=== PATIENT | female | born 1960 | race Caucasian/White ===

== ENCOUNTER 2020-04-22 08:55 | Outpatient (REF) | payer OTHER, SELFPAY ==
[2020-04-22 11:36] LABS: Alanine Aminotransferase 14 U/L (0-31); Albumin Level 4.5 g/dL (3.5-5.0); Alkaline Phosphatase 78 U/L (39-117); Anion Gap 14 (12-20); Aspartate Amino Transferase 17 U/L (5-31); Bilirubin Total 0.9 mg/dL (0.0-1.0); Blood Urea Nitrogen 21 mg/dL (9-16); Calcium 9.4 mg/dL (8.4-10.2); Carbon Dioxide 26 mmol/L (22-29); Chloride 104 mmol/L (96-108); Cholesterol 197 mg/dL; Estimated Glomerular Filt Rate > 60; Glucose Fasting 87 mg/dL (60-99); HDL Cholesterol 73 mg/dL; LDL Cholesterol Calculated 112 mg/dl; Sodium 140 mmol/L (135-145); Total Protein 6.5 g/dL (6.5-8.0); Triglycerides 64 mg/dL
== END 2020-04-22 08:56 | disposition home or self-care (01) ==
LOC: HO.HMGCX 08:55
PROVIDERS: PCP Internal Medicine; Visit Provider Internal Medicine
DX: I10 Essential (primary) hypertension (principal); E78.5 Hyperlipidemia, unspecified
CPT/HCPCS: 80053; 80061

== ENCOUNTER 2021-08-16 11:48 | Outpatient (REF) | payer OTHER, SELFPAY ==
[2021-08-19 07:11] LABS: HPV mRNA E6/E7 Not Detected (Not Detected)
== END 2021-08-16 11:49 | disposition home or self-care (01) ==
LOC: HO.LAB 11:48
PROVIDERS: Visit Provider Internal Medicine
DX: Z01.419 Encounter for gynecological examination (general) (routine) without abnormal findings (principal); Z11.51 Encounter for screening for human papillomavirus (HPV)
CPT/HCPCS: 87624; 88142

== ENCOUNTER 2021-11-02 11:42 | Outpatient (REF) | payer OTHER, SELFPAY ==
[2021-11-02 11:58] LABS: Appearance Urine CLOUDY; Color Urine YELLOW; Glucose Urine UA NEG (NEG); Leukocyte Esterase Urine 1+ (NEG); Nitrite Urine NEG (NEG); PH 5.5 (5.0-8.0); Specific Gravity - Urine 1.025 (1.005-1.025); UACC Culture Trigger YES; Urine Blood NEG (NEG); Urine Ketones NEG (NEG); Urine Protein NEG (NEG-TRACE)
[2021-11-02 12:07] LABS: Amorphous Sediment Urine 3+ /LPF; Bacteria Urine 1+ /LPF; Calcium Oxalate Crystals Urine 3+ /LPF; RBC Urine 0 /HPF (0); Squamous Epithelial Cell Urine TRACE /LPF
== END 2021-11-02 11:43 | disposition home or self-care (01) ==
LOC: HO.LNP 11:42
PROVIDERS: Visit Provider Physician Assistant
DX: N39.0 Urinary tract infection, site not specified (principal)
CPT/HCPCS: 81001; 87086

== ENCOUNTER 2022-02-13 08:17 | Outpatient (REF) | payer OTHER, SELFPAY ==
[2022-02-13 11:25] LABS: Appearance Urine Clear; Color Urine Yellow; Glucose Urine UA Negative (Negative); Leukocyte Esterase Urine Negative (Negative); Nitrite Urine Negative (Negative); Specific Gravity - Urine 1.015 (1.005-1.025); UMIC TRIGGER UA YES; UMIC TRIGGER UACC YES; Urine Blood Trace (Negative); Urine Ketones Negative (Negative); Urine Protein Negative (Neg-Trace)
[2022-02-13 11:29] LABS: Bacteria Urine Trace (None Seen); Hyaline Casts Urine 0-2 /LPF (0-2); Squamous Epithelial Cell Urine 0-2 /HPF (0-2); WBC Urine 0-5 /HPF (0-5)
[2022-02-13 11:43] LABS: Hematocrit 41.9 % (37.0-47.0); Hemoglobin 14.3 g/dl (12.0-16.0); Mean Corpuscular HGB Conc 34.1 g/dl (31.0-35.0); Mean Corpuscular Hemoglobin 30.1 pg (27.0-33.0); Mean Corpuscular Volume 88.2 fL (80.0-98.0); Mean Platelet Volume 9.7 fL (9.4-12.3); Platelet Count 279 X10*3/uL (160-400); Red Blood Count 4.75 X10*6/uL (4.20-5.50); Red Cell Distribution Width 12.9 % (11.0-16.0); White Blood Count 8.5 X10*3/uL (4.8-10.8)
[2022-02-13 12:23] LABS: Alanine Aminotransferase 22 U/L (0-31); Albumin Level 4.4 g/dL (3.5-5.0); Alkaline Phosphatase 90 U/L (39-117); Anion Gap 15 (12-20); Aspartate Amino Transferase 21 U/L (5-31); Bilirubin Total 0.5 mg/dL (0.0-1.0); Blood Urea Nitrogen 13 mg/dL (9-16); Calcium 9.3 mg/dL (8.4-10.2); Carbon Dioxide 27 mmol/L (22-29); Chloride 105 mmol/L (96-108); Cholesterol 215 mg/dL; Estimated Glomerular Filt Rate > 60; Glucose Fasting 91 mg/dL (60-99); HDL Cholesterol 80 mg/dL; LDL Cholesterol Calculated 124 mg/dl; Potassium 3.7 mmol/L (3.3-5.1); Sodium 143 mmol/L (135-145); Total Protein 6.4 g/dL (6.5-8.0); Triglycerides 58 mg/dL
[2022-02-13 12:29] LABS: TSH reflex Free T4 0.99 uIU/mL (0.32-4.0)
== END 2022-02-13 08:18 | disposition home or self-care (01) ==
LOC: HO.HMGCLDS 08:17
PROVIDERS: Physician Assistant; PCP Internal Medicine; Visit Provider Internal Medicine
DX: Z00.00 Encounter for general adult medical examination without abnormal findings (principal); I10 Essential (primary) hypertension; E78.5 Hyperlipidemia, unspecified; N39.0 Urinary tract infection, site not specified
CPT/HCPCS: 36415; 80053; 80061; 81001; 84443; 85027

== ENCOUNTER 2022-08-30 10:19 | Outpatient (REF) | payer OTHER, SELFPAY ==
--- NOTE | ~2022-08-30 | XR_ITS ---
EXAMINATION: XR CHEST CLINICAL INFORMATION: Persistent cough x1 month COMPARISON: None available. TECHNIQUE: 2 views of the chest were obtained. FINDINGS: No focal consolidation. No pneumothorax. Trachea is midline. Cardiac mediastinal silhouette is not enlarged. No large pleural effusion. Osseous structures are intact. Soft tissues are unremarkable. Surgical clips in the upper chest. XR/XR chest 2V IMPRESSION: No acute cardiopulmonary process.
[2022-08-30 12:19] LABS: Alanine Aminotransferase 21 U/L (0-31); Albumin Level 4.5 g/dL (3.5-5.0); Alkaline Phosphatase 92 U/L (39-117); Anion Gap 13 (12-20); Aspartate Amino Transferase 20 U/L (5-31); Bilirubin Total 0.7 mg/dL (0.0-1.0); Blood Urea Nitrogen 16 mg/dL (9-16); Calcium 9.4 mg/dL (8.4-10.2); Carbon Dioxide 27 mmol/L (22-29); Chloride 107 mmol/L (96-108); Cholesterol 220 mg/dL; Estimated Glomerular Filt Rate > 60; Glucose Fasting 84 mg/dL (60-99); HDL Cholesterol 68 mg/dL; LDL Cholesterol Calculated 124 mg/dl; Sodium 143 mmol/L (135-145); Total Protein 6.5 g/dL (6.5-8.0); Triglycerides 143 mg/dL
== END 2022-08-30 10:20 | disposition home or self-care (01) ==
LOC: HO.HMGCX 10:19
PROVIDERS: Absent Provider Internal Medicine; PCP Internal Medicine; Visit Provider Nurse Practitioner Family
DX: E78.5 Hyperlipidemia, unspecified (principal); I10 Essential (primary) hypertension; R05.9 Cough, unspecified
CPT/HCPCS: 36415; 71046; 80053; 80061

== ENCOUNTER 2023-01-12 15:22 | Outpatient (AMB) | payer OTHER, SELFPAY ==
[2023-01-12 16:13] VITALS: BP 128/62; PULSE 98; TEMP 36.6; O2SAT 97; BMI 31.8
--- NOTE | 2023-01-12 16:13 | MHC.OFFWIV ---
Intake Vital Signs 01/12/23 16:13 Height 5 ft 4 in Weight 185 lb 8 oz BMI 31.8 BP 128/62 Blood Pressure Location Rt brachial Position Sitting Pulse 98 Pulse Source Pulse Oximeter Temp 97.9 F Temp Source Oral Pulse Oximetry (%) 97 Oxygen Delivery Method Room Air Intake Visit Reasons: EST/sore spot on hand Intake Note: Pt is here today for lump on Rt hand, noticed 2 months ago. Also concerns of Rt neck pain. Patient Tobacco Use Status: Never used Tobacco Allergies fexofenadine [From Romi] Allergy (Unknown, Verified 01/12/23 16:14) dizziness Milk Containing Products (Dairy) [Milk Containing Products] Allergy (Unknown, Verified 01/12/23 16:14) hives/ itchiness lisinopril Adverse Reaction (Verified 01/12/23 16:14) cough HPI HPI Comments History of Present Illness Details This is a 62-year-old female who presents to the office today for sick visit. Patient complaining of a tender ?lump? on her right hand that has been present for months as well as chronic right neck pain. Patient states she started to notice a lump on her right hand about 3 months ago. She does not believe that it is getting bigger it has gotten more painful. She also reports chronic right-sided neck pain. She follows with her PCP as well as arthritis doctor for this pain. She denies any numbness/weakness/paresthesias of her extremities. [facility] Medical History (Updated 08/30/22 @ 10:15 by Saba Richardson, [facility]) Annual physical exam Mastalgia in female Mammogram normal Hyperlipidemia Allergic rhinitis Pemphigus vulgaris Osteoarthritis HTN (hypertension) Surgical History (Updated 02/15/22 @ 13:27 by Kavya Red MD) H/O colonoscopy S/P RAFY (total abdominal hysterectomy) Hx of cholecystectomy H/O left knee surgery H/O right wrist surgery History of bladder surgery Family History Father Lung cancer Mother Bladder cancer Social History Housing: House Alcohol intake: current Alcohol intake frequency: a few times a month Patient Tobacco Use Status: Never used Tobacco e-Cigarette/Vaping Use: Never Used Second Hand Smoke Exposure: No Current occupational status: employed Cognitive needs: No Hearing needs: No Vision needs: Yes Review of Systems Const All systems reviewed & are unremarkable except as noted in HPI and below Reports no additional complaints Eyes Reports no additional complaints ENT Reports no additional complaints Card Reports no additional complaints Resp Reports no additional complaints GI Reports no additional complaints Reports no additional complaints Musc Reports no additional complaints Skin/Breast Reports system reviewed and no additional complaints, except as documented Neuro Reports no additional complaints Psych Reports no additional complaints Endo Reports no additional complaints Aaron/Lymph Reports no additional complaints Aller/Immun Reports no additional complaints Physical Exam Vital Signs: Last Vital Signs Temp 97.9 F 01/12/23 16:13 Pulse 98 01/12/23 16:13 BP 128/62 01/12/23 16:13 Pulse Ox 97 01/12/23 16:13 Oxygen Delivery Method Room Air 01/12/23 16:13 BMI result Body Mass Index 31.8 Const General: cooperative, healthy appearing, no acute distress and well developed Orientation/consciousness: patient oriented x3 HEENT Head: Yes normal to inspection Ears: hearing grossly normal bilaterally General nose exam: Normal external nose present Face and sinus: Yes normal facial exam Mouth: Normal oral and palatal mucosa present Eyes General: appearance normal, both eyes and all related structures Pupils: Equal, round and reactive pupils present EOM: EOMs intact bilaterally Neck Other: Mild tenderness to palpation of the right-sided paraspinal musculature of the cervical spine with palpable muscle spasms. Neck: Yes normal visual inspection and Yes full ROM Resp Effort & Inspection: normal respiratory effort and no respiratory distress Auscultation: clear to auscultation bilaterally Cardio Rate: regular rate Rhythm: regular rhythm Heart sounds: no gallops, no murmurs and no rubs Peripheral pulses: Peripheral pulses 2+ throughout GI Inspection: No distended Palpation (GI): Soft to palpation and nontender Auscultation: normal bowel sounds Back/Spine/Pelvis Other: No midline spinous process tenderness to palpation of the cervical spine. Skin General skin exam: no rashes or lesions noted Neuro General: patient oriented x3 Cranial nerves: Yes CN's II-XII intact bilaterally and Yes Equal, round and reactive pupils present Gait exam (Neuro): Normal gait present Motor exam (neuro): 5/5 motor strength present throughout Extrem Other: Mildly tender firm nodule on the palmar aspect of the right hand with a fibrotic band consistent with Dupuytren's contracture. General: Yes normal to inspection, Yes full ROM and Yes no clubbing, cyanosis or edema Psych Appearance: grossly normal Mental Status: mental status grossly normal Assessment & Plan Assessment & Plan (1) Dupuytren contracture: Code(s): M72.0 - Palmar fascial fibromatosis [Dupuytren] Plan: This is a 62-year-old female who presents to the office complaining of a tender nodule on the right hand. On physical examination, there is a firm mildly tender nodule on the palmar aspect of the right hand with a fibrotic band which is consistent with Dupuytren's contracture. Patient has full range of motion in flexion and extension of all fingers at this time. Patient was reassured that this is a common in benign condition. Recommend rest/activity modification, ice to the area, and elevation of the extremity. Continue with acetaminophen/ibuprofen for pain management as long as patient has no medical contraindications. Orthopedic referral was given to the patient for possible intralesional glucocorticoid injection given this has become more bothersome. (2) Neck pain on right side: Code(s): M54.2 - Cervicalgia Plan: Patient also complaining of chronic right-sided neck pain for which she is followed by her primary care physician as well as an arthritis doctor. She denies any radicular symptoms. She states she tried her 's muscle relaxant, which seemed to help her pain at night. Patient was given a prescription for p.o. cyclobenzaprine 10 mg every night at bedtime as needed for muscle spasms as well as 5% lidocaine patches to the area daily. Patient was advised to attend her follow-up appointment with her arthritis doctor in 1 month. Orders: Referrals Orthopedics Referral M72.0 - Palmar fascial fibromatosis [Dupuytren] Medications: New cyclobenzaprine 10 mg PO BEDTIME PRN 30 tabs 0RF muscle spasm lidocaine 5% leave on most painful area for up to 12 hrs 1 patch topical DAILY 15 ea 0RF Coding Level of Care Code Est Pt Level 3 (71693) Diagnoses Dupuytren contracture M72.0 Neck pain on right side M54.2
== END 2023-01-12 16:39 | disposition home or self-care (01) ==
PROVIDERS: PCP Internal Medicine; Visit Provider Physician Assistant Medical
DX: M72.0 Palmar fascial fibromatosis [Dupuytren] (principal); M54.2 Cervicalgia
CPT/HCPCS: 99213

== ENCOUNTER 2023-02-21 13:52 | Outpatient (AMB) | payer OTHER, SELFPAY ==
[2023-02-21 14:06] VITALS: BMI 31.6
--- NOTE | 2023-02-21 14:06 | MHC.OFFVIS ---
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 States she feels a small lump on her volar aspect of hand at base of her right finger. 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 Also states she has numbness and tingling for the last 5 years. No EMG done. Hx of O.A in hands, last injection was about 2 years ago for her left index finger. 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 She complains of a painful bump in her left palm, at the base of her ring finger. She says this causes her pain with gripping and lifting activities for the last ~6 months. She also complains of ~5 years bilateral hand numbness in the median nerve distribution. Symptoms intermittent, but daily, worse at night. She says using her tablet in bed at night in particular causes her numbness She reports a hx of hand OA. She says she received a left index finger injection ~2 years ago. This is primarily involving her PIP joint. She denies any known injury. [facility] Medical History (Updated 02/21/23 @ 14:50 by Kevin Santillan) Annual physical exam Mastalgia in female Mammogram normal Hyperlipidemia Allergic rhinitis Pemphigus vulgaris Osteoarthritis HTN (hypertension) Surgical History (Updated 02/15/22 @ 13:27 by Kavya Red MD) H/O colonoscopy S/P RAFY (total abdominal hysterectomy) Hx of cholecystectomy H/O left knee surgery H/O right wrist surgery History of bladder surgery Family History Father Lung cancer Mother Bladder cancer Social History (Updated 02/21/23 @ 14:14 by Sonia Peters CCM) Housing: House Alcohol intake: current Alcohol intake frequency: a few times a month Patient Tobacco Use Status: Never used Tobacco e-Cigarette/Vaping Use: Never Used Second Hand Smoke Exposure: No Current occupational status: employed Current occupation: [employer] Cognitive needs: No Hearing needs: No Vision needs: Yes Review of Systems Const All systems reviewed & are unremarkable except as noted in HPI and below Physical Exam Vital Signs: BMI result Body Mass Index 31.6 Const General: cooperative, healthy appearing and no acute distress Orientation/consciousness: patient oriented x3 HEENT Head: Yes normocephalic and Yes atraumatic Eyes EOM: EOMs intact bilaterally Resp Effort & Inspection: normal respiratory effort and able to speak in complete sentences Cardio Jugular venous distension: no JVD Skin General skin exam: turgor normal Rashes: no rashes Neuro General: patient oriented x3 Extrem Other: Evaluation of Left Upper Extremity: The patient is alert, oriented, and in no acute distress Neuro: Median, Ulnar, Radial nerves motor and sensory intact and sensation is normal to the tips of all digits Vascular: Cap refill brisk ROM: She can make a weak fist and extend all her digits No locking or catching She does have significant osteoarthritic changes in the left index finger PIP joint with enlargement of the joint and ulnar deviation at the joint. This also limits her flexion to about 45 degrees at the PIP joint. No history of injury Skin: No lacerations or abrasions. General: No Ecchymosis. No Erythema or evidence of infection. She has a Dupuytrens nodule in the palmar aspect of her left hand, in line with the left ring finger. There is also an early cord formation associated with this nodule, but no contracture at present.. Psych Appearance: grossly normal Affect: normal affect Attitude: cooperative Assessment & Plan Assessment & Plan (1) Dupuytren's disease of palm of left hand: Code(s): M72.0 - Palmar fascial fibromatosis [Dupuytren] (2) Bilateral hand numbness: Code(s): R20.0 - Anesthesia of skin Plan Assessment & Plan: 1. Left Dupuytrens nodule/early cord In line with the left ring finger No contracture at present I educated her about this condition I directed her to the [email or web address] website for more information No orthopedic intervention warranted at this time 2. Bilateral hand numbness In the median nerve distribution Symptoms intermittent, but daily, worse at night when handling her tablet I ordered a NCS to assess for peripheral nerve compression She will follow up when completed for review Scribed for Ann Pittman MD by Kevin Santillan, bilingual medical assistant, on 02/21/23 at 2:50 PM, EST. Orders: Orders NE nerve conduction velocity Today R20.0 - Anesthesia of skin, R20.2 - Paresthesia of skin Coding Level of Care Code New Pt Level 3 (43648) Diagnoses Dupuytren's disease of palm of left hand M72.0 Bilateral hand numbness R20.0
== END 2023-02-21 14:53 | disposition home or self-care (01) ==
PROVIDERS: PCP Internal Medicine; Visit Provider Orthopaedic Surgery
DX: M72.0 Palmar fascial fibromatosis [Dupuytren] (principal); R20.0 Anesthesia of skin
CPT/HCPCS: 99203

== ENCOUNTER → 2023-02-21 13:52 | Outpatient (BNVA) | payer OTHER, SELFPAY | PROVIDERS: PCP Internal Medicine; Visit Provider Orthopaedic Surgery ==

== ENCOUNTER 2023-05-11 08:02 | Outpatient (AMB) | payer OTHER, SELFPAY ==
--- NOTE | 2023-05-11 08:19 | MHC.PC.OV ---
Vital Signs 05/11/23 08:20 Height 5 ft 4 in Weight 181 lb 2 oz BMI 31.1 BP 126/78 Blood Pressure Location Rt brachial Position Sitting Pulse 77 Pulse Source Pulse Oximeter Pulse Oximetry (%) 97 Oxygen Delivery Method Room Air Intake Visit Reasons: Establish care from Dr Red Intake Note: Pt is here to est care from Dr Red Allergies fexofenadine [From Romi] Allergy (Unknown, Verified 05/11/23 08:54) dizziness Milk Containing Products (Dairy) [Milk Containing Products] Allergy (Unknown, Verified 05/11/23 08:54) hives/ itchiness lisinopril Adverse Reaction (Verified 05/11/23 08:54) cough Medication List - Last Reconciled 05/11/23 by Stacy Wells MD albuterol sulfate 90 mcg/actuation 2 puffs inhalation QID PRN amlodipine 5 mg PO DAILY celecoxib 200 mg PO BID cyclobenzaprine 10 mg PO BEDTIME PRN famotidine mg PO montelukast 10 mg PO DAILY multivitamin (Daily Multi-Vitamin tablet) 1 tab PO DAILY olmesartan-hydrochlorothiazide 40-12.5 mg 1 tab PO DAILY prednisone mg PO .every other day zoledronic mfqn-lexnnsdo-dbhsa 5 mg/100 mL (Reclast) ea IV Tobacco use date assessed: 05/11/23 Dental Screening Dental Screen Date: 05/11/23 Did you have a dental visit in the last 12 months?: No Did you have a dental problem in the last 6 months where you did not have access to dental care?: No Was dental information given to patient?: No HPI Establish care from Dr Red HPI Details 62-year-old lady with hypertension, hyperlipidemia, osteoarthritis, currently followed by Dr. Lrod, sees [facility] for her pemphigus vulgaris, here today to establish care with a new PCP and for follow-up on her hypertension and lipids. Her blood pressure stable and controlled on amlodipine and olmesartan HCTZ. Developed a dry cough from lisinopril which was discontinued . [facility] Medical History (Updated 05/20/23 @ 16:22 by Stacy Wells MD) Osteopenia History of closed Colles' fracture Surgical menopause Annual physical exam Mastalgia in female Mammogram normal Hyperlipidemia Allergic rhinitis Pemphigus vulgaris Osteoarthritis HTN (hypertension) Surgical History (Updated 05/11/23 @ 09:13 by Stacy Wells MD) History of arthroplasty of right knee H/O colonoscopy S/P RAFY (total abdominal hysterectomy) Hx of cholecystectomy H/O left knee surgery H/O right wrist surgery History of bladder surgery Family History Father Lung cancer Mother Bladder cancer Social History Housing: House Alcohol intake: current Alcohol intake frequency: a few times a month Patient Tobacco Use Status: Never used Tobacco e-Cigarette/Vaping Use: Never Used Second Hand Smoke Exposure: No Current occupational status: employed Current occupation: Cognitive needs: No Hearing needs: No Vision needs: Yes Questionnaire PHQ-9 Over the last 2 weeks, how often have you been bothered by any of the following problems? 1. Little interest or pleasure in doing things: not at all 2. Feeling down, depressed, or hopeless: not at all 3. Trouble falling or staying asleep, or sleeping too much: not at all 4. Feeling tired or having little energy: not at all 5. Poor appetite or overeating: not at all 6. Feeling bad about yourself - or that you are a failure or have let yourself or your family down: not at all 7. Trouble concentrating on things, such as reading the newspaper or watching television: not at all 8. Moving or speaking so slowly that other people could have noticed. Or the opposite - being so fidgety or restless that you have been moving around a lot more than usual: not at all 9. Thoughts that you would be better off or of hurting yourself in some way: not at all Total score: 0 Depression Screening Interpretation: Negative Depression Screening Done: Yes 95349 - PHQ-9 Billing: Yes Source: Developed by Drs. Manjinder Schulz, Nadine Howard, Jose Ramon Simon and colleagues, with an educational swapna from [employer]. Thrive Questionnaire Date Thrive assessed: 05/11/23 I am a: Patient What is your living situation today?: I have a steady place to live Within the past 12 months, did the food you bought not last and you didn't have the money to get more?: I choose not to answer this question Within the past 12 months, did you worry whether your food would run out before you got money to buy more?: I choose not to answer this question Do you have trouble paying for medicines?: I choose not to answer this question Do you have trouble getting transportation to medical appointments?: I choose not to answer this question Do you have trouble paying your heating and electricity bill?: I choose not to answer this question Do you have trouble taking care of your child, family member or friend?: I choose not to answer this question Do you have trouble with day-to-day activities such as bathing, preparing meals, shopping, managing finances, etc.?: I choose not to answer this question Are you currently unemployed and looking for a job?: I choose not to answer this question Are you interested in more education?: I choose not to answer this question AUDIT C Alcohol Use Questionnaire (AUDIT-C) 1. How often do you have a drink containing alcohol?: Monthly or less 2. How many drinks containing alcohol do you have on a typical day when you are drinking?: 1 or 2 3. How often do you have six or more drinks on one occasion?: Never Total Score: 1 Score Reviewed/Action Taken: Yes JEFFERY-7 AMB Questionnaire JEFFERY-7 Date JEFFERY - 7 assessed: 05/11/23 Feeling nervous, anxious, or on edge: 0 = Not at all Not being able to stop or control worryin = Not at all Worrying too much about different things: 0 = Not at all Trouble relaxin = Not at all Being so restless that it is hard to sit still: 0 = Not at all Becoming easily annoyed or irritable: 0 = Not at all Feeling afraid as if something awful might happen: 0 = Not at all Total JEFFERY-7 score (0-4 normal; 5-9 mild; 10-14 moderate; 15-21 severe): 0 Source: Developed by Drs. Manjinder Schulz, Nadine Howard, Jose Ramon Simon and colleagues, with an educational swapna from [employer]. JEFFERY-7 Assessment Billing JEFFERY-7 Assessment Tool: JEFFERY-7 Assessment 76462 Review of Systems Const Denies fatigue, Denies fever(s), Denies headache(s) and Denies weakness Eyes Denies change in vision ENT Denies dizziness, Denies headache(s) and Denies nasal congestion Card Denies chest pain, Denies lightheadedness, Denies palpitations and Denies dyspnea Resp Denies cough and Denies dyspnea GI Denies abdominal pain and Denies change in bowel habits Denies urinary frequency, Denies dysuria and Denies urinary urgency Musc Reports stiffness (Fingers in both hands) Skin/Breast Denies breast pain, Denies breast mass, Denies lesions and Denies rash Neuro Denies dizziness, Denies headache(s) and Denies weakness Endo Denies fatigue, Denies polydipsia, Denies polyuria and Denies palpitations Aaron/Lymph Denies easy bruising Aller/Immun Denies seasonal rhinorrhea Physical exam (Primary Care) Vital Signs: Last Vital Signs Pulse 77 05/11/23 08:20 BP 126/78 05/11/23 08:20 Pulse Ox 97 05/11/23 08:20 Oxygen Delivery Method Room Air 05/11/23 08:20 BMI result Body Mass Index 31.1 Tobacco/Smoking Status: Tobacco use Status Tobacco use date assessed 05/11/23 05/11/23 08:26 Patient Tobacco Use Status Never used Tobacco 05/11/23 08:26 e-Cigarette/Vaping Use Never Used 05/11/23 08:26 PHQ-9: PHQ-9 Score PHQ-9: Total score 0 05/11/23 08:59 Depression Screening Interpretation: Negative Thrive Assessment: Date of Thrive Assessment Date Thrive assessed 05/11/23 05/11/23 08:38 Const General: comfortable and no acute distress Orientation/consciousness: patient oriented x3 [facility] Head: Yes normocephalic Mouth: Normal oral and palatal mucosa present Throat: Yes posterior oropharynx normal Eyes General: appearance normal, both eyes and all related structures Neck Neck: Yes full ROM, Yes no lymphadenopathy and Yes supple Resp Effort & Inspection: normal respiratory effort Auscultation: clear to auscultation bilaterally Cardio Rate: regular rate Rhythm: regular rhythm Heart sounds: S1 normal heart sound present and S2 normal heart sound present GI Inspection: Yes normal to inspection Palpation (GI): Soft to palpation Percussion: Yes normal to percussion Auscultation: normal bowel sounds Skin General skin exam: no rashes or lesions noted Neuro General: patient oriented x3, gait normal, tone normal, moves all extremities and no focal motor deficits Extrem Other: Presence of Heberden's and Lexi's nodes noted in fingers General: Yes full ROM Assessment and Plan Assessment & Plan (1) HTN (hypertension): Code(s): I10 - Essential (primary) hypertension Qualifiers: Hypertension type: primary hypertension Qualified Code(s): I10 - Essential (primary) hypertension Plan: Blood pressure at goal of less than 130/80. Continue with amlodipine and olmesartan HCT. Reinforced importance of following a low sodium diet, getting regular exercise, and lowering stress levels. (2) Hyperlipidemia: Code(s): E78.5 - Hyperlipidemia, unspecified Qualifiers: Hyperlipidemia type: pure hypercholesterolemia Qualified Code(s): E78.00 - Pure hypercholesterolemia, unspecified Plan: Fasting lipid panel ordered. Adherence to low-cholesterol diet and regular exercise, at least 30 minutes 3 to 4 times a week. Advised patient to make healthy food choices, eat more fruits, vegetables, whole grains, wild caught fish and low-fat dairy. Limit amount of meat and fried or fatty food products, as well as processed foods and fast foods. (3) Colon cancer screening: Code(s): Z12.11 - Encounter for screening for malignant neoplasm of colon Plan: Referred to GI Clinic for screening colonoscopy Orders: Orders Lipid Panel 05/11/23 I10 - Essential (primary) hypertension, E78.5 - Hyperlipidemia, unspecified, E89.40 - Asymptomatic postprocedural ovarian failure Alanine Aminotransferase 05/11/23 I10 - Essential (primary) hypertension, E78.5 - Hyperlipidemia, unspecified, E89.40 - Asymptomatic postprocedural ovarian failure Aspartate Amino Transferase 05/11/23 I10 - Essential (primary) hypertension, E78.5 - Hyperlipidemia, unspecified, E89.40 - Asymptomatic postprocedural ovarian failure Basic Metabolic Panel Fasting 05/11/23 I10 - Essential (primary) hypertension, E78.5 - Hyperlipidemia, unspecified, E89.40 - Asymptomatic postprocedural ovarian failure Vitamin D 25-OH Total 05/11/23 I10 - Essential (primary) hypertension, E78.5 - Hyperlipidemia, unspecified, E89.40 - Asymptomatic postprocedural ovarian failure Referrals Gastroenterology Referral Z12.11 - Encounter for screening for malignant neoplasm of colon Medications: New zoledronic uoxb-mcdyhgwi-youwz 5 mg/100 mL (Reclast) ea IV Coding Level of Care Code Est Pt Level 4 (04757) Diagnoses Primary hypertension I10 Hypertension type: primary hypertension Pure hypercholesterolemia E78.00 Hyperlipidemia type: pure hypercholesterolemia Colon cancer screening Z12.11 Additional Codes JEFFERY-7 Assessment Billing - JEFFERY-7 Assessment Tool: JEFFERY-7 Assessment 33140 ([id number])
[2023-05-11 08:20] VITALS: BP 126/78; PULSE 77; O2SAT 97; BMI 31.1
== END 2023-05-11 09:21 | disposition home or self-care (01) ==
PROVIDERS: PCP Internal Medicine; Visit Provider Internal Medicine
DX: I10 Essential (primary) hypertension (principal); E78.00 Pure hypercholesterolemia, unspecified; Z12.11 Encounter for screening for malignant neoplasm of colon
CPT/HCPCS: 99214

== ENCOUNTER 2023-06-08 10:32 | Outpatient (REF) | payer OTHER, SELFPAY ==
[2023-06-08 14:16] LABS: Alanine Aminotransferase 24 U/L (0-31); Anion Gap 13 (12-20); Aspartate Amino Transferase 22 U/L (5-31); Blood Urea Nitrogen 13 mg/dL (9-16); Calcium 9.7 mg/dL (8.4-10.2); Carbon Dioxide 27 mmol/L (22-29); Chloride 106 mmol/L (96-108); Cholesterol 187 mg/dL (<200); Estimated Glomerular Filt Rate > 60; Glucose Fasting 90 mg/dL (60-99); HDL Cholesterol 70 mg/dL (>40); LDL Cholesterol Calculated 94 mg/dL (<100); Potassium 3.9 mmol/L (3.3-5.1); Sodium 142 mmol/L (135-145); Triglycerides 115 mg/dL (<150); Vitamin D 25-OH Total 91.6 ng/mL (>30)
== END 2023-06-08 10:33 | disposition home or self-care (01) ==
LOC: HO.HMGCLDS 10:32
PROVIDERS: PCP Internal Medicine; Visit Provider Internal Medicine
DX: I10 Essential (primary) hypertension (principal); E78.5 Hyperlipidemia, unspecified; E89.40 Asymptomatic postprocedural ovarian failure
CPT/HCPCS: 36415; 80048; 80061; 82306; 84450; 84460

== ENCOUNTER 2023-06-13 14:18 | Outpatient (AMB) | payer OTHER, SELFPAY ==
[2023-06-13 15:17] VITALS: BP 132/80; PULSE 83; TEMP 36.6; O2SAT 96; BMI 31.1
--- NOTE | 2023-06-13 15:17 | AM.OFFWIN_ITS ---
Intake Vital Signs 06/13/23 15:17 Height 5 ft 4 in Weight 181 lb BMI 31.1 BP 132/80 Blood Pressure Location Lt brachial Position Sitting Pulse 83 Pulse Source Pulse Oximeter Temp 97.8 F Temp Source Oral Pulse Oximetry (%) 96 Oxygen Delivery Method Room Air Intake Visit Reasons: EP dizziness, RT neck/ear pain in lobby Intake Note: pt is here for c/o dizziness, right neck/ear pain ongoing Patient Tobacco Use Status: Never used Tobacco Allergies fexofenadine [From Romi] Allergy (Unknown, Verified 06/13/23 15:17) dizziness Milk Containing Products (Dairy) [Milk Containing Products] Allergy (Unknown, Verified 06/13/23 15:17) hives/ itchiness lisinopril Adverse Reaction (Verified 06/13/23 15:17) cough Do you need a note to return to daycare/school/sports/work: No HPI EP dizziness, RT neck/ear pain in lobby HPI Details Patient gives history of neck pain and arthritis. Has a process safety engineering technologist who has attributed it to arthritis in the neck. For the past week, she reports feeling dizzy especially when she turns to the right side. No nausea or vomiting PFSH Medical History (Updated 05/20/23 @ 16:22 by Stacy Wells MD) Osteopenia History of closed Colles' fracture Surgical menopause Annual physical exam Mastalgia in female Mammogram normal Hyperlipidemia Allergic rhinitis Pemphigus vulgaris Osteoarthritis HTN (hypertension) Surgical History (Updated 05/11/23 @ 09:13 by Stacy Wells MD) History of arthroplasty of right knee H/O colonoscopy S/P RAFY (total abdominal hysterectomy) Hx of cholecystectomy H/O left knee surgery H/O right wrist surgery History of bladder surgery Family History Father Lung cancer Mother Bladder cancer Social History Housing: House Alcohol intake: current Alcohol intake frequency: a few times a month Patient Tobacco Use Status: Never used Tobacco e-Cigarette/Vaping Use: Never Used Second Hand Smoke Exposure: No Current occupational status: employed Current occupation: [employer] Cognitive needs: No Hearing needs: No Vision needs: Yes Physical Exam Vital Signs: Last Vital Signs Temp 97.8 F 06/13/23 15:17 Pulse 83 06/13/23 15:17 BP 132/80 06/13/23 15:17 Pulse Ox 96 06/13/23 15:17 Oxygen Delivery Method Room Air 06/13/23 15:17 BMI result Body Mass Index 31.1 Const General: cooperative and healthy appearing Nutritional Appearance: well nourished Orientation/consciousness: patient oriented x3 Limitations: no limitations HEENT Head: Yes normal to inspection Eyes General: appearance normal, both eyes and all related structures Neck Neck: Yes normal visual inspection Chest Chest palpation & inspection: normal palpation of entire chest wall Resp Effort & Inspection: normal respiratory effort Neuro Other: Patient was made to lie down and turn towards her right with her left shoulder up. Immediately she experienced horizontal nystagmus, which last few seconds after she returned to lying on her back. General: patient oriented x3 Assessment & Plan Assessment & Plan (1) Dizziness: Code(s): R42 - Dizziness and giddiness Plan: Positional vertigo. With ear pain and pain in the temporal area, warrants an investigation of the brain. A note for PCP sent suggesting pt needs an MR and neuro consult. Coding Level of Care Code Est Pt Level 4 (20077) Diagnoses Dizziness R42
== END 2023-06-13 16:35 | disposition home or self-care (01) ==
PROVIDERS: PCP Internal Medicine; Visit Provider Internal Medicine
DX: R42 Dizziness and giddiness (principal)
CPT/HCPCS: 99214

== ENCOUNTER 2023-07-02 09:46 | Outpatient (AMB) | payer OTHER, SELFPAY ==
--- NOTE | 2023-07-02 10:00 | A.OFFVIS_ITS ---
Intake Vital Signs 07/02/23 10:01 Height 5 ft 4 in Weight 185 lb 10.067 oz BMI 31.9 BP 147/68 H Blood Pressure Location Rt brachial Position Sitting Pulse 75 Intake Visit Reasons: Colonoscopy Screening Intake Note: New patient presents in office for colonoscopy screening. CC: Patient denies having any GI concerns. She does not remember when she had her last colonoscopy done but states it was done at [facility]. Allergies fexofenadine [From Romi] Allergy (Unknown, Verified 07/02/23 10:03) dizziness Milk Containing Products (Dairy) [Milk Containing Products] Allergy (Unknown, Verified 07/02/23 10:03) hives/ itchiness lisinopril Adverse Reaction (Verified 07/02/23 10:03) cough HPI Colonoscopy Screening HPI Details 63 year old? female with past medical hi story of nystagmus, osteoarthritis of bilateral knee, hypertension, hyperlipidemia is here today for pre colonoscopy screening.? Patient was sent to us by her PCP.? Patient had colonoscopy in the past in her early 50s. Was supposed to return couple years ago, however due to call food her procedure was canceled. Patient denies any gastrointestinal symptoms in the past or at present.? However patient does report that she is taking Pepcid for acid reflux and her symptoms are suppres sed. Denies any personal or family history of gastrointestinal disease, colon polyps, or cancer.? Denies history of difficulty with sedation or anesthesia in the past.? Negative for history of sleep apnea.? Denies any history of cardiac, renal, pulmonary, or hepatic disease.?? No history of infectious? diseases like hepatitis A, B, C, HIV or tuberculosis.? Patient is not on any anticoagulation therapy. [facility] Medical History Positional lightheadedness Nystagmus Osteopenia History of closed Colles' fracture Surgical menopause Annual physical exam Mastalgia in female Mammogram normal Hyperlipidemia Allergic rhinitis Pemphigus vulgaris Osteoarthritis HTN (hypertension) Surgical History History of arthroplasty of right knee H/O colonoscopy S/P RAFY (total abdominal hysterectomy) Hx of cholecystectomy H/O left knee surgery H/O right wrist surgery History of bladder surgery Family History Father Lung cancer Mother Bladder cancer Paternal Grandmother Breast cancer Social History Housing: House Alcohol intake: current Alcohol intake frequency: a few times a month Patient Tobacco Use Status: Never used Tobacco e-Cigarette/Vaping Use: Never Used Second Hand Smoke Exposure: No Current occupational status: employed Current occupation: [employer] Cognitive needs: No Hearing needs: No Vision needs: Yes Review of Systems Const Denies weight gain and Denies weight loss ENT Reports no additional complaints, Denies dysphagia and Denies odynophagia Card Reports no additional complaints Resp Reports no additional complaints GI Denies abdominal pain, Denies belching, Denies melena, Denies bloating, Denies change in bowel habits, Denies dysphagia, Denies excessive flatus, Denies dyspepsia, Denies heartburn, Denies diarrhea, Denies loose stools, Denies nausea, Denies odynophagia and Denies vomiting Reports no additional complaints Musc Reports no additional complaints Neuro Reports no additional complaints Psych Reports no additional complaints Endo Reports no additional complaints Physical Exam Vital Signs: BMI result Body Mass Index 31.9 Const General: healthy appearing, no acute distress and well developed Nutritional Appearance: obese Orientation/consciousness: patient oriented x3 HEENT Head: Yes normal to inspection, Yes normocephalic and Yes atraumatic Face and sinus: Yes normal facial exam Mouth: Normal oral and palatal mucosa present Throat: Yes posterior oropharynx normal, Yes tonsils normal and Yes uvula midline Eyes General: appearance normal, both eyes and all related structures Neck Neck: Yes normal visual inspection, Yes full ROM and Yes trachea midline Thyroid: Thyroid normal Resp Effort & Inspection: normal respiratory effort, able to speak in complete sentences, no tracheal deviation and symmetric chest movement Auscultation: clear to auscultation bilaterally Cardio Jugular venous distension: no JVD Rate: regular rate Heart sounds: S1 normal heart sound present, S2 normal heart sound present, no gallops and no murmurs GI Inspection: Yes normal to inspection, No distended and Yes obesity Palpation (GI): Soft to palpation, not firm, nontender and No hepatosplenomegaly present Auscultation: normal bowel sounds General: Yes no CVA tenderness Back/Spine/Pelvis Back: no CVA tenderness Skin General skin exam: elasticity normal, turgor normal and dry skin Neuro General: patient oriented x3 Psych Appearance: grossly normal Mental Status: mental status grossly normal Speech and movement: Normal speech and movement present Affect: normal affect Attitude: cooperative Thought process: Normal thought process present Thought content: Normal thought content present Insight: Good insight present (Psych) Judgement: Good judgement present (Psych) Assessment & Plan Assessment & Plan (1) Colon cancer screening: Code(s): Z12.11 - Encounter for screening for malignant neoplasm of colon (2) GERD (gastroesophageal reflux disease): Code(s): K21.9 - Gastro-esophageal reflux disease without esophagitis Qualifiers: Esophagitis presence: esophagitis presence not specified Qualified Code(s): K21.9 - Gastro-esophageal reflux disease without esophagitis Plan Patient denies any GI, cardiac or respiratory symptoms.? Continue Pepcid on as needed basis for acid reflux. Patient denies any dyspepsia, dysphagia or odynophagia. Denies any issues with anesthesia in the past.? Denies any history of sleep apnea.? No history infectious diseases in the past or present.? Not on any anticoagulation therapy.? No family or personal history of colon cancer or polyps.? Patient denies melena, hematochezia, unintentional weight loss or ribbon like stools.? Discussed at length the pre-procedure,? prep, diet & medications as well as what to expect prior, during and after the procedure.?? Stressed the importance of good bowel prep. ?Recommended the use of Vaseline or Calmoseptine OTC & baby wipes with bowel movements to promote comfort.? ?Patient verbalizes understanding and agrees to plan of care.? She was given the opportunity to ask questions and all questions answered.? We will see her after the procedure.? Medications: New polyethylene glycol 3350 (Miralax) As directed by gastroenterology department at [facility] 238 grams PO ONCE 238 grams 0RF Z12.11 - Encounter for screening for malignant neoplasm of colon bisacodyl (Dulcolax (bisacodyl)) take 4 tabs at noon the day before your colonoscopy 20 mg (4 x 5 mg) PO ONCE 1 day 4 tabs 0RF Z12.11 - Encounter for screening for malignant neoplasm of colon Coding Level of Care Code New Pt Level 3 (82161) Diagnoses Colon cancer screening Z12.11 Gastroesophageal reflux disease, unspecified whether esophagitis present K21.9 Esophagitis presence: esophagitis presence not specified Time Spent (min) 40 Comment 30 minutes spent with patient and additional 10 minutes spent reviewing her records
[2023-07-02 10:01] VITALS: BP 147/68; PULSE 75; BMI 31.9
== END 2023-07-02 12:18 | disposition home or self-care (01) ==
PROVIDERS: PCP Internal Medicine; Referring Provider Internal Medicine; Visit Provider Nurse Practitioner Family
DX: Z12.11 Encounter for screening for malignant neoplasm of colon (principal); K21.9 Gastro-esophageal reflux disease without esophagitis; Z01.818 Encounter for other preprocedural examination
CPT/HCPCS: 99203

== ENCOUNTER → 2023-07-02 09:46 | Outpatient (BNVA) | payer OTHER, SELFPAY | PROVIDERS: PCP Internal Medicine; Visit Provider Nurse Practitioner Family ==

== ENCOUNTER 2023-07-16 08:43 | Outpatient (REF) | payer OTHER, SELFPAY ==
--- NOTE | ~2023-07-16 | MR_ITS ---
EXAMINATION: MR BRAIN WITHOUT CONTRAST CLINICAL INFORMATION: Posterior headache, dizziness when lying on right side COMPARISON: None. TECHNIQUE: MRI of the brain was obtained using routine sequences without contrast. FINDINGS: No acute infarct. No acute intracranial hemorrhage or extra-axial fluid collection. The ventricles and sulci are normal in size and configuration without significant volume loss or hydrocephalus. A few T2 FLAIR hyperintense foci in the subcortical and periventricular white matter, nonspecific but presumably mild chronic microangiopathy. There are multiple prominent arachnoid granulations remodeling the left occipital calvarium which appear to contain some herniated portions of the left cerebellum with associated encephalomalacia in the subjacent left cerebellum. A small arachnoid granulation remodels the inner table of the right occipital calvarium. Patulous appearance of the bilateral Meckel's caves. No mass lesion, mass effect, or herniation pattern. Normal intracranial arterial and dural venous sinus flow voids. The sella turcica appears partially empty with pituitary gland acentrically positioned in the anterior aspect of the sella turcica. The orbits are grossly unremarkable. Mild to moderate mucosal thickening in the ethmoid air cells. Left mastoid effusion. There is anterior positioning of the right mandibular condyle relative to the glenoid fossa beneath the articular eminence with suspected osseous remodeling of the right mandibular condyle that can be correlated for right-sided TMJ symptomatology and potentially further assessed with CT or MRI of the TMJ. MR/MR head/brain wo con IMPRESSION: 1. No acute intracranial abnormality. 2. Multiple prominent arachnoid granulations remodeling the left occipital calvarium which appear to contain some herniated portions of the left cerebellum with associated encephalomalacia. 3. Patulous appearance of Meckel's cave and partially empty/eccentrically positioned pituitary gland ventrally within the sella turcica. Findings may be correlated clinically for the possibility of clinically raised intracranial pressure/pseudotumor cerebri. No CSF distention of the optic nerve sheaths or evidence of papilledema. 4. Anterior positioning of the right mandibular condyle relative to the glenoid fossa beneath the articular eminence with suspected chronic osseous remodeling of the right mandibular condyle that can be correlated for right-sided TMJ symptomatology and potentially further assessed with CT or MRI of the TMJ.
== END 2023-07-16 08:44 | disposition home or self-care (01) ==
LOC: HO.MRI 08:43
PROVIDERS: PCP Internal Medicine; Visit Provider Internal Medicine
DX: R42 Dizziness and giddiness (principal); H55.00 Unspecified nystagmus
CPT/HCPCS: 70551

== ENCOUNTER 2023-08-28 12:23 | Inpatient (IN) | payer OTHER, SELFPAY ==
--- NOTE | ~2023-08-28 | XR_ITS ---
EXAMINATION: XR CHEST CLINICAL INFORMATION: Preop evaluation COMPARISON: 08/30/2022 TECHNIQUE: Frontal view of the chest was obtained. FINDINGS: Elevated right hemidiaphragm. This appearance may be exaggerated due to technique and lordotic positioning. Lungs clear. Heart and pulmonary vessels normal. XR/XR chest 1V IMPRESSION: No active disease.
--- NOTE | ~2023-08-28 | XR_ITS ---
EXAMINATION: XR PELVIS CLINICAL INFORMATION: Postop. COMPARISON: 08/28/2023 TECHNIQUE: AP view of the pelvis. FINDINGS: Prosthetic components of the right total hip arthroplasty are appropriately aligned. No periprosthetic fracture. Gas from recent surgery is present in the surrounding soft tissues. XR/XR pelvis 1-2V IMPRESSION: Status post right total hip arthroplasty. Expected postoperative changes.
--- NOTE | ~2023-08-28 | XR_ITS ---
EXAMINATION: XR HIP, RIGHT CLINICAL INFORMATION: Right hip/groin pain. COMPARISON: None available. TECHNIQUE: AP view of the pelvis and AP and crosstable lateral views of the right hip. FINDINGS: There is an acute subcapital fracture of the right femoral neck with varus impaction and cephalad displacement of the femoral neck by 2.5 cm. No additional fractures are identified. [place] anterior angulation is present at the fracture site. Mild osteoarthritis in both hips and SI joints. Bones are osteopenic. Soft tissues are unremarkable. Facet arthropathy and degenerative disc disease are present in the lower lumbar spine. XR/XR hip RT w PEL1V IMPRESSION: Acute subcapital fracture of the right femoral neck with varus impaction and cephalad displacement of the femoral neck.
[2023-08-28 12:43] VITALS: BP 157/77; PULSE 96; RESP 20; TEMP 36.6; O2SAT 95; BMI 30.9
--- NOTE | 2023-08-28 12:44 | ED_ITS ---
HPI - Extremity Problem General Chief complaint: Extremity Injury, Lower Stated complaint: R Leg Pain Time Seen by Provider: 08/28/23 13:01 Source: patient Limitations: no limitations History of Present Illness HPI Narrative: 63-year-old female with a past medical history of osteopenia, arthritis, hypertension and hyperlipidemia who presents to the emergency department with complaint of right hip/groin pain for 4 days. Patient denies any trauma or falls. She reports that pain progressively got worse over time. She denies any numbness, tingling, weakness of the affected extremity, however, has difficult time bearing weight due to pain. She is on chronic prednisone therapy for autoimmune disease. Denies leg erythema, swelling, fever, chills, or other systemic symptoms. Related Data Home Medications ?Medication ?Instructions ?Recorded ?Confirmed multivitamin (Daily Multi-Vitamin 1 tab PO DAILY 05/11/23 08/28/23 tablet) famotidine 20 mg tablet 20 mg PO BEDTIME 07/02/23 08/28/23 prednisone 5 mg tablet 5 mg PO MOFR 07/02/23 08/28/23 zoledronic acid 5 mg/100 mL in ea IV .every 6 months 07/02/23 mannitol 5 %-water intravenous piggybck (Reclast) cyclobenzaprine 10 mg tablet 10 mg PO BEDTIME PRN muscle spasm 08/28/23 08/28/23 Previous Rx's ?Medication ?Instructions ?Recorded celecoxib 200 mg capsule 200 mg PO BID #180 caps 10/06/21 albuterol sulfate 90 mcg/actuation 2 puff inhalation QID PRN 08/17/22 aerosol inhaler shortness of breath or wheezing #8.5 grams olmesartan 40 1 tab PO DAILY #90 tabs 02/06/23 mg-hydrochlorothiazide 12.5 mg tablet amlodipine 5 mg tablet 5 mg PO DAILY #90 tabs 06/10/23 meclizine 25 mg tablet 25 mg PO DAILY PRN motion sickness 06/22/23 #10 tabs montelukast 10 mg tablet 10 mg PO DAILY #90 tabs 07/24/23 Allergies Allergy/AdvReac Type Severity Reaction Status Date / Time fexofenadine [From Romi] Allergy Unknown dizziness Verified 08/28/23 12:45 Milk Containing Products Allergy Unknown hives/ Verified 08/28/23 12:45 (Dairy) itchiness [Milk Containing Products] lisinopril AdvReac cough Verified 08/28/23 12:45 Review of Systems 2 Review of Systems: Per HPI Yes all other systems are reviewed and are negative PMFSH Past Medical History Medical History Positional lightheadedness Nystagmus Osteopenia History of closed Colles' fracture Surgical menopause Annual physical exam Mastalgia in female Mammogram normal Hyperlipidemia Allergic rhinitis Pemphigus vulgaris Osteoarthritis HTN (hypertension) Surgical History History of arthroplasty of right knee H/O colonoscopy S/P RAFY (total abdominal hysterectomy) Hx of cholecystectomy H/O left knee surgery H/O right wrist surgery History of bladder surgery Family History Family History Father Lung cancer Mother Bladder cancer Paternal Grandmother Breast cancer Social History Social History Housing: House Alcohol intake: current Alcohol intake frequency: a few times a month Patient Tobacco Use Status: Never used Tobacco e-Cigarette/Vaping Use: Never Used Second Hand Smoke Exposure: No Advance Directives: No Advance Directives Information Provided: No Do you have a plan to hurt others: No Plan Current occupational status: employed Current occupation: [employer] Cognitive needs: No Hearing needs: No Vision needs: Yes Physical Exam 2 Vital Signs: Vital Signs: Last Vital Signs Temp 97.1 F 08/28/23 14:46 Pulse 89 08/28/23 14:46 Resp 16 08/28/23 14:46 BP 146/67 H 08/28/23 14:46 Pulse Ox 99 08/28/23 14:46 O2 Del Method Room Air 08/28/23 14:46 BMI result Body Mass Index 30.9 Const: General: healthy appearing, no acute distress, alert and other (appears uncomfortable due to pain) Nutritional Appearance: well nourished O rientation/consciousness: patient oriented x3 Limitations: no limitations HEENT: Head: Yes normal to inspection, Yes normocephalic and Yes atraumatic Ears: external ears normal General nose exam: Normal external nose present Mouth: Normal oral and palatal mucosa present and moist mucous membranes Neck: Neck: Yes full ROM and Yes no lymphadenopathy Resp: Effort & Inspection: normal respiratory effort and able to speak in complete sentences Auscultation: clear to auscultation bilaterally Cardio: Jugular venous distension: no JVD Rate: regular rate Rhythm: r egular rhythm Heart sounds: S1 normal heart sound present and S2 normal heart sound present Peripheral pulses: Peripheral pulses 2+ throughout GI: Inspection: Yes normal to inspection Palpation (GI): Soft to palpation and Other GI palpation findings present (non tender, non distended) A uscultation: normal bowel sounds Skin: General skin exam: no rashes or lesions noted Neuro: General: patient oriented x3 and CN's II-XI intact bilaterally C ognition (Neuro): normal cognition Extrem: Other: right lower extremity is slightly shortnened and externaly rotated. ROM of the right hip joint is limited due to pain. Distal vascular and motor-sensory functions are intact. No swelling, erythema, open wounds or increased warmth to the area. Course Course Course Narrative: This is a rapid medical exam completed by Julio CAMPUS RECRUITER: Additional HPI, ROS, PE not included below will be deferred to primary provider. C/O right groin pain radiating into right leg starting Sunday night. Denies recent falls or overuse injuries. S/p bilat knee replacements Witnessed fall in the waiting room without headstrike or LOC Medications Administered Discontinued Medications Generic Name Dose Route Start Last Admin Trade Name Freq PRN Reason Stop Dose Admin Morphine Sulfate 4 mg 08/28/23 13:28 08/28/23 13:55 Morphine Sulfate 4 Mg/Ml Cartridge IVPUSH 08/28/23 13:29 4 mg ONCE ONE Administration Protocol Morphine Sulfate 4 mg 08/28/23 14:33 08/28/23 14:40 Morphine Sulfate 4 Mg/Ml Cartridge IVPUSH 08/28/23 14:34 4 mg ONCE ONE Administration Protocol Ondansetron HCl 4 mg 08/28/23 13:28 08/28/23 13:55 Ondansetron Hcl 4 Mg/2 Ml Vial IVPUSH 08/28/23 13:29 4 mg ONCE ONE Administration Medical Decision Making Medical Decision Making MDM Narrative: 63-year-old female with a past medical history and physical exam was about who presents to the emergency department with complaint of right hip pain. Upon presentation patient is hemodynamically stable, alert, oriented, afebrile. She appears uncomfortable due to pain but otherwise in no acute distress. Hip x-ray was ordered in triage and shows: an acute subcapital fracture of the right femoral neck with varus impaction and cephalad displacement of the femoral neck by 2.5 cm. No additional fractures are identified. [place] anterior angulation is present at the fracture site. Mild osteoarthritis in both hips and SI joints. Bones are osteopenic. Soft tissues are unremarkable. Facet arthropathy and degenerative disc disease are present in the lower lumbar spine. Discussed results of evaluation and diagnosis with the patient. Plan to admit to ortho surgery for further management. Patient is agreeable with the plan. Case was discussed with ortho, Lauryn Johnson PA-C, who accepted patient to ortho surgery service Pre-op orderes placed. Discussed with Dr. Ferreira, ED attending who concurred assessment and treatment plan. Admission/Observation Consideration of admission/observation: Escalation of care including admission/observation considered Consult Healthcare Provider Management of the patient was discussed with: Dairy Husbandry Worker (Orhto surgery) Lab Data [facility] Lab Attestation statement: I reviewed the patient's lab results. 08/28/23 14:20 08/28/23 14:20 Labs: Lab Results 08/28/23 Range/Units 14:20 WBC 15.5 H (4.8-10.8) X10*3/uL RBC 4.48 (4.20-5.50) X10*6/uL Hgb 14.3 (12.0-16.0) g/dl Hct 39.6 (37.0-47.0) % MCV 88.4 (80.0-98.0) fL MCH 31.9 (27.0-33.0) pg MCHC 36.1 H (31.0-35.0) g/dl RDW 12.5 (11.0-16.0) % Plt Count 262 (160-400) X10*3/uL MPV 8.9 L (9.4-12.3) fL Immature Gran % (Auto) 0.6 H (0.0-0.4) % Neut % (Auto) 80.3 H (45-73) % Lymph % (Auto) 12.1 L (20-40) % [place] % (Auto) 5.5 (2-11) % Eos % (Auto) 1.0 (0-4) % Baso % (Auto) 0.5 (0-2) % Lymph # (Auto) 1.9 (1.2-4.9) X10*3/uL [place] # (Auto) 0.9 (0.1-1.2) X10*3/uL Eos # (Auto) 0.2 (0.0-0.4) X10*3/uL Baso # (Auto) 0.1 (0.0-0.2) X10*3/uL Abs Immat Gran (auto) 0.09 H (0.00-0.03) X10*3/uL Absolute Neuts (auto) 12.5 H (2.0-8.3) x10*3/uL Absolute Nucleated RBC 0.000 (0.0-0.012) X10*3/uL Nucleated RBC % (auto) 0.0 (0.0-0.2) /100WBC PT 10.9 L (11.1-13.3) SEC INR 0.9 (0.9-1.1) Sodium 141 (135-145) mmol/L Potassium 3.1 L D (3.3-5.1) mmol/L Chloride 107 (96-108) mmol/L Carbon Dioxide 20 L (22-29) mmol/L Anion Gap 17 (12-20) BUN 16 (9-16) mg/dL Creatinine 0.65 (0.5-1.4) mg/dL Estim Creat Clear Calc 93.9 Estimated GFR > 60 Random Glucose 130 H (60-115) mg/dL Calcium 10.0 (8.4-10.2) mg/dL Total Bilirubin 0.4 (0.0-1.0) mg/dL AST 27 (5-31) U/L ALT 24 (0-31) U/L Alkaline Phosphatase 97 (39-117) U/L Total Protein 7.1 (6.5-8.0) g/dL Albumin 4.4 (3.5-5.0) g/dL Blood Type O Positive Antibody Screen NEGATIVE Independent Interpretation I performed an independent interpretation of an: EKG Radiology Impression Discussion of test interpretation with radiology: I have reviewed the radiologist's reading. Radiologist Impression: Acute subcapital fracture of the right femoral neck with varus impaction and cephalad displacement of the femoral neck. External Record Review External record reviewed: Inpatient record and Outpatient record Prescription Management I considered prescription management with: Pain Medication (Morphine) Chronic Conditions Patient?s care impacted by: Hypertension and Other (chronic prednisone therapy) Discharge Plan Discharge Clinical Impression: Femoral neck fracture Qualifiers: Encounter type: initial encounter Fracture type: closed Laterality: right Q ualified Code(s): S72.001A - Fracture of unspecified part of neck of right femur, initial encounter for closed fracture Patient Disposition: Admitted As Inpatient
--- NOTE | 2023-08-28 12:47 | PC.NURSE ---
according to security who was assisting another pt at that time, see the pt walking into the ER and pt purposely eased herself to the ground, this rn attended to the pt after hearing the commotion, pt denies hitting her head just reports that her leg gave out, pt assisted into a wheelchair
[2023-08-28] MEDS: ondansetron HCL 4 MG/2 ML VIAL IVPUSH (13:55)
[2023-08-28] MEDS: Morphine Sulfate 4 MG/ML CARTRIDGE IVPUSH ×2 (13:55→14:40)
[2023-08-28 14:26] LABS: MANUAL DIFF FLAG NO
[2023-08-28 14:27] LABS: Basophils Absolute Auto 0.1 X10*3/uL (0.0-0.2); Basophils Percent Auto 0.5 % (0-2); Eosinophils Absolute Auto 0.2 X10*3/uL (0.0-0.4); Hematocrit 39.6 % (37.0-47.0); Hemoglobin 14.3 g/dl (12.0-16.0); Imm Gran Abs Auto 0.09 X10*3/uL (0.00-0.03); Imm Gran Pct Auto 0.6 % (0.0-0.4); Lymphocytes Absolute Auto 1.9 X10*3/uL (1.2-4.9); Lymphocytes Percent Auto 12.1 % (20-40); Mean Corpuscular HGB Conc 36.1 g/dl (31.0-35.0); Mean Corpuscular Hemoglobin 31.9 pg (27.0-33.0); Mean Corpuscular Volume 88.4 fL (80.0-98.0); Mean Platelet Volume 8.9 fL (9.4-12.3); Monocytes Absolute Auto 0.9 X10*3/uL (0.1-1.2); Monocytes Percent Auto 5.5 % (2-11); Neutrophils Absolute Auto 12.5 x10*3/uL (2.0-8.3); Neutrophils Percent Auto 80.3 % (45-73); Platelet Count 262 X10*3/uL (160-400); Red Blood Count 4.48 X10*6/uL (4.20-5.50); Red Cell Distribution Width 12.5 % (11.0-16.0); White Blood Count 15.5 X10*3/uL (4.8-10.8)
[2023-08-28 14:32] LABS: INTERNATIONAL NORM RATIO 0.9 (0.9-1.1); Prothrombin Time 10.9 SEC (11.1-13.3)
[2023-08-28 14:43] LABS: Alanine Aminotransferase 24 U/L (0-31); Albumin Level 4.4 g/dL (3.5-5.0); Alkaline Phosphatase 97 U/L (39-117); Anion Gap 17 (12-20); Aspartate Amino Transferase 27 U/L (5-31); Bilirubin Total 0.4 mg/dL (0.0-1.0); Blood Urea Nitrogen 16 mg/dL (9-16); Carbon Dioxide 20 mmol/L (22-29); Chloride 107 mmol/L (96-108); Creatinine Clr Calc Pharmacy 93.9; Estimated Glomerular Filt Rate > 60; Glucose Random 130 mg/dL (60-115); Potassium 3.1 mmol/L (3.3-5.1); Sodium 141 mmol/L (135-145); Total Protein 7.1 g/dL (6.5-8.0)
[2023-08-28 14:46] VITALS: BP 146/67; PULSE 89; RESP 16; TEMP 36.2; O2SAT 99
--- NOTE | 2023-08-28 15:02 | PHA.MEDREC ---
Pharmacy Consult ? Medication Reconciliation Pharmacy has completed the medication reconciliation. Patient confirmed medications. Maame Hernandez, [employer]
--- NOTE | 2023-08-28 18:44 | P.HPOP_ITS ---
History of Present Illness History of Present Illness Date of Service: 08/29/23 Chief complaint: right hip fracture Narrative: Cooper Finney is a 63 year old female with a PMH significant for of osteopenia, arthritis, hypertension and hyperlipidemia, chronic prednisone use for autoimmune disease who presented to the emergency department with complaint of right hip/groin pain for 4 days. She reports that pain progressively got worse over the past few days prompting her to present to the ED. While walking into the ED the patient reports that her hip gave out and she fell landing on the right hip. After the fall she was unable to ambulate. X-rays obtained in the ED revealed a right hip femoral neck fracture. The orthopedic team was consulted and was admitted to the orthopedic service for further evaluation and treatment. Review of Systems 2 Review of Systems: Yes all other systems are reviewed and are negative PMFSH Past Medical History Medical History Positional lightheadedness Nystagmus Osteopenia History of closed Colles' fracture Surgical menopause Annual physical exam Mastalgia in female Mammogram normal Hyperlipidemia Allergic rhinitis Pemphigus vulgaris Osteoarthritis HTN (hypertension) Family History Family History Father Lung cancer Mother Bladder cancer Paternal Grandmother Breast cancer Surgical History Surgical History History of arthroplasty of right knee H/O colonoscopy S/P RAFY (total abdominal hysterectomy) Hx of cholecystectomy H/O left knee surgery H/O right wrist surgery History of bladder surgery Social History Social History Household Members: Family Housing: House Do you presently have visiting nurse or other home services: No Alcohol intake: current Alcohol intake frequency: holidays/special occasions only Patient Tobacco Use Status: Never used Tobacco Smoked in Last 30 Days: No e-Cigarette/Vaping Use: Never Used Second Hand Smoke Exposure: No Use of substances other than those prescribed or required for medical reasons: No Currently Displaying Signs/Symptoms of Drug Intoxication Withdrawal: No Have you been hit, kicked, punched, or otherwise hurt by someone within the past year? If so, by whom?: No Do you feel safe in your current relationship?: Yes Is there a partner from a previous relationship who is making you feel unsafe now?: No Are you made to feel afraid or neglected: No Advance Directives: No Advance Directives Information Provided: No Do you have a plan to hurt others: No Plan Recently lost weight without trying: No How much weight loss: Not applicable Eating poorly because of decreased appetite: No Nutrition screen score: 0 Nutrition Risks: No Nutritional Risk Patient : No : No Poor oral hygiene: No Current occupational status: employed Current occupation: [email or web address] Cognitive needs: No Hearing needs: No Vision needs: Yes Meds Allergies Allergy/AdvReac Type Severity Reaction Status Date / Time fexofenadine [From Romi] Allergy Unknown dizziness Verified 08/28/23 12:45 Milk Containing Products Allergy Unknown hives/ Verified 08/28/23 12:45 (Dairy) itchiness [Milk Containing Products] lisinopril AdvReac cough Verified 08/28/23 12:45 Active Medications: Current Medications Acetaminophen (Acetaminophen 325 Mg Tablet) 650 mg PO Q6H PRN PRN Reason: Pain, Mild (Pain Scale 1-3) Celecoxib (Celecoxib 200 Mg Capsule) 200 mg PO BID GUS Docusate Sodium (Docusate Sodium 100 Mg Capsule) 100 mg PO BID GUS Hydromorphone HCl (Hydromorphone Hcl 0.5 Mg/0.5 Ml Syringe) 0.25 mg IVPUSH Q4H PRN; Protocol PRN Reason: Pain, Severe (Pain Scale 7-10) Lactated Ringer's (Lr) 1,000 mls @ 100 mls/hr IVCONT .Q10H GUS Cefazolin Sodium/Dextrose (Ancef) 2 gm in 50 mls @ 100 mls/hr IV PREOP ONE Stop: 08/29/23 13:37 Oxycodone HCl (Oxycodone Hcl Immed Release 5 Mg Tablet) 5 mg PO Q4H PRN PRN Reason: Pain, Moderate(Pain Scale 4-6) Oxycodone HCl (Oxycodone Hcl Er 10 Mg Tab.Er.12h) 10 mg PO BID GUS Sodium Chloride (0.9 % Sodium Chloride Flush 3 Ml Syringe) 3 ml IVFLUSH QSHIFT [facility] Home Medications ?Medication ?Instructions ?Recorded ?Confirmed ?Last Taken ?Type multivitamin (Daily Multi-Vitamin 1 tab PO DAILY 05/11/23 08/28/23 08/28/23 History tablet) famotidine 20 mg tablet 20 mg PO BEDTIME 07/02/23 08/28/23 08/28/23 History prednisone 5 mg tablet 5 mg PO MOFR 07/02/23 08/28/23 08/27/23 History zoledronic acid 5 mg/100 mL in ea IV .every 6 months 07/02/23 Unknown History mannitol 5 %-water intravenous piggybck (Reclast) cyclobenzaprine 10 mg tablet 10 mg PO BEDTIME PRN muscle spasm 08/28/23 08/28/23 Unknown History Physical Exam 2 Vital Signs: Vital Signs: Last Vital Signs Temp 97.1 F 08/28/23 14:46 Pulse 89 08/28/23 14:46 Resp 16 08/28/23 14:46 BP 146/67 H 08/28/23 14:46 Pulse Ox 99 08/28/23 14:46 O2 Del Method Room Air 08/28/23 14:46 BMI result Body Mass Index 30.9 Const: General: cooperative, healthy appearing and no acute distress Resp: Effort & Inspection: normal respiratory effort and able to speak in complete sentences Cardio: Rate: regular rate Peripheral pulses: Peripheral pulses 2+ throughout GI: Palpation (GI): Soft to palpation Skin: Lesions: no lesions Rashes: no rashes Extrem: Other: RLE is shortened and externally rotated. + groin pain with log roll. Able to dorsi/plantar flex. Pedal pulse intact. Results Labs 08/29/23 05:23 08/29/23 05:23 Labs: Abnormal lab results 08/28/23 Range/Units 14:20 WBC 15.5 H (4.8-10.8) X10*3/uL MCHC 36.1 H (31.0-35.0) g/dl MPV 8.9 L (9.4-12.3) fL Immature Gran % (Auto) 0.6 H (0.0-0.4) % Neut % (Auto) 80.3 H (45-73) % Lymph % (Auto) 12.1 L (20-40) % Abs Immat Gran (auto) 0.09 H (0.00-0.03) X10*3/uL Absolute Neuts (auto) 12.5 H (2.0-8.3) x10*3/uL PT 10.9 L (11.1-13.3) SEC Potassium 3.1 L D (3.3-5.1) mmol/L Carbon Dioxide 20 L (22-29) mmol/L Random Glucose 130 H (60-115) mg/dL H & H 08/28/23 Range/Units 14:20 Hgb 14.3 (12.0-16.0) g/dl Hct 39.6 (37.0-47.0) % Coagulation 08/28/23 Range/Units 14:20 INR 0.9 (0.9-1.1) All other labs normal. Assessment and Plan (1) Femoral neck fracture: Qualifiers: Encounter type: initial encounter Fracture type: closed Laterality: r ight Qualified Code(s): S72.001A - Fracture of unspecified part of neck of right femur, initial encounter for closed fracture Status: Acute I discussed the case with Dr. Rowe and explained the extent of the injury to the patient and options available which include surgical intervention. I explained the procedure in detail along with the length of recovery and rehab course. I explained the risk, benefits and alternatives. Risk including, but not limited to infection, blood clots, bleeding, non union or malunion and nerve/tissue damage to surrounding areas. I answered all their questions and with their understanding they have consented to move forward with Operative Fixation of the right hip. The patient will remain NPO for OR later today. (2) Osteopenia: Status: Acute (3) Surgical menopause: Status: Acute Quality Stroke Does the patient have a stroke diagnosis?: No VTE Prior VTE?: No VTE Risk Level:: Medical - moderate - high VTE Device Contraindication: N/A - Device Ordered VTE Drug Contraindication: N/A - Med Ordered Procedures Date of Service Date of Service: 08/29/23
[2023-08-28 20:00] VITALS: PULSE 72; RESP 18; TEMP 36.8; O2SAT 98
[2023-08-28] MEDS: Lactated Ringers 1,000 ML 100 ML IVCONT (20:18)
[2023-08-28] MEDS: oxyCODONE HCl Immed Release 5 MG TABLET PO (20:19)
[2023-08-28 21:13] VITALS: BMI 30.5
[2023-08-28] MEDS: HYDROmorphone HCl 0.5 MG/0.5 ML SYRINGE 0.25 MG IVPUSH (21:31)
[2023-08-28] MEDS: oxyCODONE HCl ER 10 MG TAB.ER.12H PO (21:33)
[2023-08-28] MEDS: Docusate Sodium 100 MG CAPSULE PO (21:33)
[2023-08-28] MEDS: Celecoxib 200 MG CAPSULE PO (21:33)
[2023-08-28] MEDS: 0.9 % Sodium Chloride Flush 3 ML SYRINGE IVFLUSH (21:33)
[2023-08-28 21:38] VITALS: BP 141/67; PULSE 77; RESP 16; TEMP 36.4; O2SAT 98
[2023-08-28] MEDS: Potassium Chloride/H20 10 MEQ/100 ML PIGGYBACK 100 MEQ IV ×3 (21:38→23:40)
[2023-08-28 22:55] LABS: Appearance Urine Clear; Color Urine Yellow; Glucose Urine UA Negative (Negative); Leukocyte Esterase Urine Negative (Negative); Nitrite Urine Negative (Negative); PH 6.5 (5.0-9.0); UMIC TRIGGER UACC YES; Urine Blood Trace (Negative); Urine Ketones Negative (Negative); Urine Protein Negative (Neg-Trace)
[2023-08-28 22:59] LABS: Bacteria Urine None Seen (None Seen); Hyaline Casts Urine 0-2 /LPF (0-2); Squamous Epithelial Cell Urine 0-2 /HPF (0-2); WBC Urine 0-5 /HPF (0-5)
[2023-08-29] VITALS (12 sets, daily range): BP systolic 101–138; BP diastolic 51–85; PULSE 78–100; RESP 15–18; TEMP 36.1–37.2; O2SAT 90–100
[2023-08-29] MEDS: Potassium Chloride/H20 10 MEQ/100 ML PIGGYBACK 100 MEQ IV (00:47)
[2023-08-29] MEDS: oxyCODONE HCl Immed Release 5 MG TABLET PO ×3 (00:54→10:20)
[2023-08-29 05:36] LABS: MANUAL DIFF FLAG NO
[2023-08-29 05:42] LABS: Basophils Absolute Auto 0.1 X10*3/uL (0.0-0.2); Basophils Percent Auto 0.6 % (0-2); Eosinophils Absolute Auto 0.3 X10*3/uL (0.0-0.4); Eosinophils Percent Auto 2.9 % (0-4); Hematocrit 38.9 % (37.0-47.0); Hemoglobin 13.3 g/dl (12.0-16.0); Imm Gran Abs Auto 0.04 X10*3/uL (0.00-0.03); Imm Gran Pct Auto 0.4 % (0.0-0.4); Lymphocytes Absolute Auto 2.7 X10*3/uL (1.2-4.9); Mean Corpuscular HGB Conc 34.2 g/dl (31.0-35.0); Mean Corpuscular Hemoglobin 31.2 pg (27.0-33.0); Mean Corpuscular Volume 91.3 fL (80.0-98.0); Monocytes Absolute Auto 0.8 X10*3/uL (0.1-1.2); Monocytes Percent Auto 7.7 % (2-11); Neutrophils Absolute Auto 6.6 x10*3/uL (2.0-8.3); Neutrophils Percent Auto 62.4 % (45-73); Platelet Count 234 X10*3/uL (160-400); Red Blood Count 4.26 X10*6/uL (4.20-5.50); Red Cell Distribution Width 12.8 % (11.0-16.0); White Blood Count 10.5 X10*3/uL (4.8-10.8)
[2023-08-29] MEDS: Lactated Ringers 1,000 ML 100 ML IVCONT ×3 (05:43→23:51)
[2023-08-29 05:55] LABS: Anion Gap 13 (12-20); Blood Urea Nitrogen 11 mg/dL (9-16); Carbon Dioxide 23 mmol/L (22-29); Chloride 106 mmol/L (96-108); Creatinine Clr Calc Pharmacy 104.6; Estimated Glomerular Filt Rate > 60; Glucose Fasting 97 mg/dL (60-99); Potassium 3.6 mmol/L (3.3-5.1); Sodium 138 mmol/L (135-145)
[2023-08-29] MEDS: oxyCODONE HCl ER 10 MG TAB.ER.12H PO ×2 (07:35→21:11)
[2023-08-29] MEDS: Docusate Sodium 100 MG CAPSULE PO ×2 (07:36→21:11)
[2023-08-29] MEDS: Celecoxib 200 MG CAPSULE PO ×2 (07:36→21:11)
--- NOTE | 2023-08-29 09:49 | MHC.CM.PN ---
pt lives with is independent and working has a ride home
--- NOTE | 2023-08-29 10:04 | MHC.SHP ---
Pre-Procedural Eval Section A - 24 Hr Update-Section A only Date of Service: 08/29/23 The patient is an INPATIENT: Yes Changes since office visit: No Cold of Flu in the past 2 weeks, No New Medical Problems, No Changes in Medication and No Patient answered all questions The patient has been examined within 24 hours of the surgical procedure. The History & Physical has been completed within 30 days and I have reviewed it.: Yes Section B - Complete if H&P > 30 days Chief Complaint: right hip fracture Allergies: Allergies Allergy/AdvReac Type Severity Reaction Status Date / Time fexofenadine [From Romi] Allergy Unknown dizziness Verified 08/28/23 12:45 Milk Containing Products Allergy Unknown hives/ Verified 08/28/23 12:45 (Dairy) itchiness [Milk Containing Products] lisinopril AdvReac cough Verified 08/28/23 12:45 Plan I have reviewed the history and physical and performed a pertinent physical examination on my patient. No changes have occurred unless specified. Time Spent With Patient Time: Total time managing care of this patient today ____ minutes.
--- NOTE | 2023-08-29 10:49 | P.CONAN_ITS ---
[facility] Active Problems Active Problems: All Active Problems (Updated 08/28/23 @ 15:23 by PHILL Anderson) Femoral neck fracture (Acute) Positional lightheadedness (Acute) Nystagmus (Acute) Osteopenia (Acute) Surgical menopause (Acute) Bilateral hand numbness (Acute) Dupuytren's disease of palm of left hand (Acute) Cough (Acute) Osteoarthritis of right knee (Acute) H/O left knee surgery (Acute) Neck pain (Acute) Bilateral impacted cerumen (Acute) Annual physical exam (Acute) Mastalgia in female (Acute) HTN (hypertension) (Acute) Mammogram normal (Acute) Hyperlipidemia (Acute) Right otitis media (Acute) Past Medical History Medical History Positional lightheadedness Nystagmus Osteopenia History of closed Colles' fracture Surgical menopause Annual physical exam Mastalgia in female Mammogram normal Hyperlipidemia Allergic rhinitis Pemphigus vulgaris Osteoarthritis HTN (hypertension) Family History Family History Father Lung cancer Mother Bladder cancer Paternal Grandmother Breast cancer Family history of problems with anesthesia: No Surgical History Surgical History History of arthroplasty of right knee H/O colonoscopy S/P RAFY (total abdominal hysterectomy) Hx of cholecystectomy H/O left knee surgery H/O right wrist surgery History of bladder surgery History of Problems with Anesthesia: No Social History Social History Household Members: Family Housing: House Do you presently have visiting nurse or other home services: No Alcohol intake: current Alcohol intake frequency: holidays/special occasions only Patient Tobacco Use Status: Never used Tobacco Smoked in Last 30 Days: No e-Cigarette/Vaping Use: Never Used Second Hand Smoke Exposure: No Use of substances other than those prescribed or required for medical reasons: No Currently Displaying Signs/Symptoms of Drug Intoxication Withdrawal: No Have you been hit, kicked, punched, or otherwise hurt by someone within the past year? If so, by whom?: No Do you feel safe in your current relationship?: Yes Is there a partner from a previous relationship who is making you feel unsafe now?: No Are you made to feel afraid or neglected: No Advance Directives: No Advance Directives Information Provided: No Do you have a plan to hurt others: No Plan Recently lost weight without trying: No How much weight loss: Not applicable Eating poorly because of decreased appetite: No Nutrition screen score: 0 Nutrition Risks: No Nutritional Risk Patient : No : No Poor oral hygiene: No service: No Current occupational status: employed Current occupation: [employer] Cognitive needs: No Hearing needs: No Vision needs: Yes Meds Allergies Allergy/AdvReac Type Severity Reaction Status Date / Time fexofenadine [From Romi] Allergy Unknown dizziness Verified 08/28/23 12:45 Milk Containing Products Allergy Unknown hives/ Verified 08/28/23 12:45 (Dairy) itchiness [Milk Containing Products] lisinopril AdvReac cough Verified 08/28/23 12:45 Active Medications: Current Medications Acetaminophen (Acetaminophen 325 Mg Tablet) 650 mg PO Q6H PRN PRN Reason: Pain, Mild (Pain Scale 1-3) Celecoxib (Celecoxib 200 Mg Capsule) 200 mg PO BID [facility] Last Admin: 08/29/23 07:36 Dose: 200 mg Docusate Sodium (Docusate Sodium 100 Mg Capsule) 100 mg PO BID [facility] Last Admin: 08/29/23 07:36 Dose: 100 mg Hydromorphone HCl (Hydromorphone Hcl 0.5 Mg/0.5 Ml Syringe) 0.25 mg IVPUSH Q4H PRN; Protocol PRN Reason: Pain, Severe (Pain Scale 7-10) Last Admin: 08/28/23 21:31 Dose: 0.25 mg Lactated Ringer's (Lr) 1,000 mls @ 100 mls/hr IVCONT .Q10H [facility] Last Infusion: 08/29/23 10:22 Dose: 0 mls/hr Cefazolin Sodium/Dextrose (Ancef) 2 gm in 50 mls @ 100 mls/hr IV PREOP ONE Stop: 08/29/23 13:37 Oxycodone HCl (Oxycodone Hcl Immed Release 5 Mg Tablet) 5 mg PO Q4H PRN PRN Reason: Pain, Moderate(Pain Scale 4-6) Last Admin: 08/29/23 10:20 Dose: 5 mg Oxycodone HCl (Oxycodone Hcl Er 10 Mg Tab.Er.12h) 10 mg PO BID [facility] Last Admin: 08/29/23 07:35 Dose: 10 mg Sodium Chloride (0.9 % Sodium Chloride Flush 3 Ml Syringe) 3 ml IVFLUSH QSHIFT [facility] Last Admin: 08/29/23 07:36 Dose: Not Given Home Medications ?Medication ?Instructions ?Recorded ?Confirmed ?Last Taken ?Type multivitamin (Daily Multi-Vitamin 1 tab PO DAILY 05/11/23 08/28/23 08/28/23 History tablet) famotidine 20 mg tablet 20 mg PO BEDTIME 07/02/23 08/28/23 08/28/23 History prednisone 5 mg tablet 5 mg PO MOFR 07/02/23 08/28/23 08/27/23 History zoledronic acid 5 mg/100 mL in ea IV .every 6 months 07/02/23 Unknown History mannitol 5 %-water intravenous piggybck (Reclast) cyclobenzaprine 10 mg tablet 10 mg PO BEDTIME PRN muscle spasm 08/28/23 08/28/23 Unknown History Exam Height,Weight and Vital Signs: Height 5 ft 4 in Weight 80.7 kg Last Vital Signs Temp 98.2 F 08/29/23 08:00 Pulse 78 08/29/23 08:00 Resp 18 08/29/23 08:00 BP 123/57 L 08/29/23 08:00 Pulse Ox 96 08/29/23 08:00 O2 Del Method Room Air 08/29/23 08:00 Pertinent Lab Results Pertinent Lab Results: ?Laboratory Tests 08/28/23 08/28/23 08/29/23 14:20 21:48 05:23 WBC 15.5 H 10.5 RBC 4.48 4.26 Hgb 14.3 13.3 Hct 39.6 38.9 MCV 88.4 91.3 MCH 31.9 31.2 MCHC 36.1 H 34.2 RDW 12.5 12.8 Plt Count 262 234 MPV 8.9 L 9.0 L Immature Gran % (Auto) 0.6 H 0.4 Neut % (Auto) 80.3 H 62.4 Lymph % (Auto) 12.1 L 26.0 [place] % (Auto) 5.5 7.7 Eos % (Auto) 1.0 2.9 Baso % (Auto) 0.5 0.6 Lymph # (Auto) 1.9 2.7 [place] # (Auto) 0.9 0.8 Eos # (Auto) 0.2 0.3 Baso # (Auto) 0.1 0.1 Abs Immat Gran (auto) 0.09 H 0.04 H Absolute Neuts (auto) 12.5 H 6.6 Absolute Nucleated RBC 0.000 0.000 Nucleated RBC % (auto) 0.0 0.0 PT 10.9 L INR 0.9 Sodium 141 138 Potassium 3.1 L D 3.6 Chloride 107 106 Carbon Dioxide 20 L 23 Anion Gap 17 13 BUN 16 11 Creatinine 0.65 0.58 Estim Creat Clear Calc 93.9 104.6 Estimated GFR > 60 > 60 Random Glucose 130 H Fasting Glucose 97 Calcium 10.0 9.0 D Total Bilirubin 0.4 AST 27 ALT 24 Alkaline Phosphatase 97 Total Protein 7.1 Albumin 4.4 Urine Color Yellow Urine Appearance Clear Urine pH 6.5 Ur Specific [place] 1.010 Urine Protein Negative Urine Glucose (UA) Negative Urine Ketones Negative Urine Blood Trace H Urine Nitrite Negative Ur Leukocyte Esterase Negative Urine RBC 3-5 H Urine WBC 0-5 Ur Squamous Epith Cells 0-2 Urine Bacteria None Seen Hyaline Casts 0-2 Blood Type O Positive Antibody Screen NEGATIVE Airway Mallampati Class: III TM Dist: >3cm Neck ROM: Full Assessment and Plan Assessment Anesthesia Assessment: Anesthesia Plan Discussed and Chart Reviewed Final Anesthetic Review Family History of Problems with Anesthesia: No History of Problems with Anesthesia: No NPO: Yes ASA Class: II Final Preanesthetic Review: No Changes in Pt Med Stat, Meds/Allgs Chart Reviewed, Consent Obtained/Reviewed and Anes Risks/Benef Reviewed Patient Risk: Intermediate Procedure Risk: Intermediate Anesthetic Plan Anesthetic Plan: GA Disposition: Standard PACU
[2023-08-29] MEDS: Lactated Ringers 1,000 ML 50 ML IVCONT (11:17)
--- NOTE | 2023-08-29 12:56 | PM.OP ---
Brief Operative Note Date of Service: 08/29/23 Pre-op diagnosis: Right femoral neck fracture Post-op diagnosis: same Procedure: Right hip hemiarthroplasty Implants: [place] Accolade2 #4 127 deg with +4 bipolar Surgeon: Kip Rowe MD Anesthesia: GETA and local Was an Harness Fitter used for this Procedure?: No Estimated blood loss (mL): 200 IV fluids (mL): 800 Pathology: other Condition: stable Disposition: PACU
--- NOTE | 2023-08-29 15:49 | HO.PM.IMCN ---
History of Present Illness Data of Consult Service Date: 08/29/23 Primary Care Provider: Stacy Wells MD HPI Reason for consult: Medical management for hypertension/osteopenia/chronic steroid therapy 63-year-old female patient with past medical history significant for osteoarthritis of bilateral knee status post replacement surgery, hypertension, hyperlipidemia, history of pemphigus vulgaris and chronic steroid therapy for greater than 10 years admitted to orthopedic surgery for right hip femoral neck fracture underwent surgery this morning, postprocedure patient is awake alert offers no acute complaints of pain, denies shortness of breath, no cough, no chest pain, no palpitation, denies nausea, no vomiting, no headache or my had a regular bowel movement yesterday, postprocedure placed on oxygen due to mild hypoxia with finger oximetry 90% on room air currently on 2 L finger oximetry 93%, patient denies history of hyperlipidemia, is compliant with home medications. Review of Systems Review of Systems: General no headache, no dizziness no fever chills. CVS no chest pain, no palpitation. Respiratory no cough, no sob Gastrointestinal no nausea, no vomiting, no abdominal pain Skin no rash no urgency, no frequency. [facility] Medical History Positional lightheadedness Nystagmus Osteopenia History of closed Colles' fracture Surgical menopause Annual physical exam Mastalgia in female Mammogram normal Hyperlipidemia Allergic rhinitis Pemphigus vulgaris Osteoarthritis HTN (hypertension) Family History Father Lung cancer Mother Bladder cancer Paternal Grandmother Breast cancer Surgical History History of arthroplasty of right knee H/O colonoscopy S/P RAFY (total abdominal hysterectomy) Hx of cholecystectomy H/O left knee surgery H/O right wrist surgery History of bladder surgery Social History Household Members: Family Housing: House Do you presently have visiting nurse or other home services: No Alcohol intake: current Alcohol intake frequency: holidays/special occasions only Patient Tobacco Use Status: Never used Tobacco Smoked in Last 30 Days: No e-Cigarette/Vaping Use: Never Used Second Hand Smoke Exposure: No Use of substances other than those prescribed or required for medical reasons: No Currently Displaying Signs/Symptoms of Drug Intoxication Withdrawal: No Have you been hit, kicked, punched, or otherwise hurt by someone within the past year? If so, by whom?: No Do you feel safe in your current relationship?: Yes Is there a partner from a previous relationship who is making you feel unsafe now?: No Are you made to feel afraid or neglected: No Are you DNR?: No Advance Directives: No Advance Directives Information Provided: No Do you have a plan to hurt others: No Plan Recently lost weight without trying: No How much weight loss: Not applicable Eating poorly because of decreased appetite: No Nutrition screen score: 0 Nutrition Risks: No Nutritional Risk Patient : No : No Poor oral hygiene: No service: No Current occupational status: employed Current occupation: [employer] Cognitive needs: No Hearing needs: No Vision needs: Yes Meds Allergies Allergy/AdvReac Type Severity Reaction Status Date / Time fexofenadine [From Romi] Allergy Unknown dizziness Verified 08/28/23 12:45 Milk Containing Products Allergy Unknown hives/ Verified 08/28/23 12:45 (Dairy) itchiness [Milk Containing Products] lisinopril AdvReac cough Verified 08/28/23 12:45 Active Medications: Current Medications Acetaminophen (Acetaminophen 325 Mg Tablet) 650 mg PO Q6H PRN PRN Reason: Pain, Mild (Pain Scale 1-3) Albuterol Sulfate (Albuterol Sulfate 90 Mcg 8 Gm Inhaler) 2 puff INHALE QID PRN PRN Reason: shortness of breath or wheezing Amlodipine Besylate (Amlodipine Besylate 5 Mg Tablet) 5 mg PO DAILY [facility]; Protocol Celecoxib (Celecoxib 200 Mg Capsule) 200 mg PO BID GUS Cyclobenzaprine HCl (Cyclobenzaprine Hcl 10 Mg Tablet) 10 mg PO BEDTIME PRN PRN Reason: muscle spasm Docusate Sodium (Docusate Sodium 100 Mg Capsule) 100 mg PO BID [facility] Last Admin: 08/29/23 07:36 Dose: 100 mg Famotidine (Famotidine 20 Mg Tablet) 20 mg PO BEDTIME [facility] Hydrochlorothiazide (Hydrochlorothiazide 12.5 Mg Tablet) 12.5 mg PO DAILY [facility] Lactated Ringer's (Lr) 1,000 mls @ 100 mls/hr IVCONT .Q10H GUS Last Admin: 08/29/23 14:39 Dose: 100 mls/hr Cefazolin Sodium/Dextrose (Ancef) 2 gm in 50 mls @ 100 mls/hr IV POSTOP [facility] Meclizine HCl (Meclizine Hcl 25 Mg Tablet) 25 mg PO DAILY PRN PRN Reason: motion sickness Montelukast Sodium (Montelukast Sodium 10 Mg Tablet) 10 mg PO DAILY [facility] Multivitamins/Vitamin C (Multivitamin Tablet) 1 tab PO DAILY [facility] Oxycodone HCl (Oxycodone Hcl Immed Release 5 Mg Tablet) 5 mg PO Q4H PRN PRN Reason: Pain, Moderate(Pain Scale 4-6) Last Admin: 08/29/23 10:20 Dose: 5 mg Oxycodone HCl (Oxycodone Hcl Er 10 Mg Tab.Er.12h) 10 mg PO BID [facility] Last Admin: 08/29/23 07:35 Dose: 10 mg Prednisone (Prednisone 5 Mg Tablet) 5 mg PO MoFr@0900 [facility] Sodium Chloride (0.9 % Sodium Chloride Flush 3 Ml Syringe) 3 ml IVFLUSH QSHIFT [facility] Last Admin: 08/29/23 07:36 Dose: Not Given Valsartan (Valsartan 160 Mg Tablet) 160 mg PO DAILY [facility] Home Medications ?Medication ?Instructions ?Recorded ?Confirmed ?Last Taken ?Type multivitamin (Daily Multi-Vitamin 1 tab PO DAILY 05/11/23 08/28/23 08/28/23 History tablet) famotidine 20 mg tablet 20 mg PO BEDTIME 07/02/23 08/28/23 08/28/23 History prednisone 5 mg tablet 5 mg PO MOFR 07/02/23 08/28/23 08/27/23 History zoledronic acid 5 mg/100 mL in ea IV .every 6 months 07/02/23 Unknown History mannitol 5 %-water intravenous piggybck (Reclast) cyclobenzaprine 10 mg tablet 10 mg PO BEDTIME PRN muscle spasm 08/28/23 08/28/23 Unknown History Physical Exam Vital Signs and Narrative: Vital Signs: Last Vital Signs Temp 97.1 F 08/29/23 15:11 Pulse 88 08/29/23 15:13 Resp 16 08/29/23 15:11 BP 128/85 08/29/23 15:13 Pulse Ox 93 08/29/23 15:13 O2 Del Method Nasal Cannula 08/29/23 15:11 O2 Flow Rate 2 08/29/23 15:11 BMI result Body Mass Index 30.5 Const: Other: General awake alert x3 resting comfortably in no acute distress. Anicteric sclera Neck supple no JVD. CVS regular rate rhythm, Respiratory lungs clear to auscultation, no respiratory distress, no wheeze, no rhonchi. Gastrointestinal abdomen soft, non tender, bowel sounds audible, no guarding , no rigidity. Extremities no edema. Neuro non focal Psych appropriate affect Skin no rash Musculoskeletal, bilateral hand deformity/surgical scar both knees Results Labs 08/29/23 05:23 08/29/23 05:23 Labs: Laboratory Results - last 24 hr 08/28/23 08/29/23 21:48 05:23 MCV 91.3 MCH 31.2 MCHC 34.2 RDW 12.8 Plt Count 234 MPV 9.0 L Immature Gran % (Auto) 0.4 Neut % (Auto) 62.4 Lymph % (Auto) 26.0 [place] % (Auto) 7.7 Eos % (Auto) 2.9 Baso % (Auto) 0.6 Lymph # (Auto) 2.7 [place] # (Auto) 0.8 Eos # (Auto) 0.3 Baso # (Auto) 0.1 Abs Immat Gran (auto) 0.04 H Absolute Neuts (auto) 6.6 Absolute Nucleated RBC 0.000 Nucleated RBC % (auto) 0.0 Anion Gap 13 Estim Creat Clear Calc 104.6 Estimated GFR > 60 Fasting Glucose 97 Calcium 9.0 D Urine Color Yellow Urine Appearance Clear Urine pH 6.5 Ur Specific [place] 1.010 Urine Protein Negative Urine Glucose (UA) Negative Urine Ketones Negative Urine Blood Trace H Urine Nitrite Negative Ur Leukocyte Esterase Negative Urine RBC 3-5 H Urine WBC 0-5 Ur Squamous Epith Cells 0-2 Urine Bacteria None Seen Hyaline Casts 0-2 Imaging Radiologist's Impressions: Impressions Chest X-Ray 08/28/23 15:44 IMPRESSION: No active disease. Assessment and Plan (1) Femoral neck fracture: Qualifiers: Encounter type: initial encounter Fracture type: closed Laterality: right Qualified Code(s): S72.001A - Fracture of unspecified part of neck of right femur, initial encounter for closed fracture Status: Acute (2) Osteopenia: Status: Acute Plan 63-year-old female patient with past medical history significant for pemphigus vulgaris, on chronic prednisone, history of hypertension, and arthritis admitted to orthopedic surgery for right hip femoral surgery. Status post right hip hemiarthroplasty POD#0 Good pain control Continue Celebrex and OxyContin, continue stool softeners Encourage incentive spirometry/PT Hypertension on amlodipine 5 mg and olmesartan/hydrochlorothiazide at home noted to have soft blood pressures will hold hydrochlorothiazide and follow BP Arthritis continue Flexeril bedtime as needed Pemphigus vulgaris on prednisone, currently on 5 mg 2 times per week,recommend outpatient follow-up with Dermatology. Allergic rhinitis continue home medications DVT prophylaxis as per ortho Disposition as per Orthopedic surgery Thank you for allowing to participate in care of this patient will follow along with you.
[2023-08-29] MEDS: Famotidine 20 MG TABLET PO (21:11)
[2023-08-30 03:34] VITALS: BP 139/65; PULSE 88; RESP 16; TEMP 36.5; O2SAT 93
[2023-08-30] MEDS: Acetaminophen 325 MG TABLET 650 MG PO (03:39)
[2023-08-30 06:25] LABS: Anion Gap 14 (12-20); Blood Urea Nitrogen 11 mg/dL (9-16); Calcium 8.8 mg/dL (8.4-10.2); Carbon Dioxide 24 mmol/L (22-29); Chloride 105 mmol/L (96-108); Creatinine Clr Calc Pharmacy 101.2; Estimated Glomerular Filt Rate > 60; Glucose Fasting 113 mg/dL (60-99); Potassium 4.1 mmol/L (3.3-5.1); Sodium 139 mmol/L (135-145)
[2023-08-30] MEDS: oxyCODONE HCl Immed Release 5 MG TABLET PO (07:38)
[2023-08-30] MEDS: 0.9 % Sodium Chloride Flush 3 ML SYRINGE IVFLUSH (07:42)
[2023-08-30 08:00] VITALS: BP 121/58; PULSE 84; RESP 20; TEMP 36.7; O2SAT 92
[2023-08-30 08:11] VITALS: BP 139/65; PULSE 88; O2SAT 93
--- NOTE | 2023-08-30 08:17 | HO.POSTANES ---
Post Anesthesia Evaluation Post Anesthesia Evaluation Date of Service: 08/30/23 Vital Signs: Vital Signs Temp Pulse Resp BP Pulse Ox O2 Del Method 08/30/23 08:11 88 139/65 93 08/30/23 03:34 97.7 F 88 16 139/65 93 Room Air Anesthesia: General Mental Status: Awake Pain Control: Satisfactory Nausea/Vomiting: None Hydration: Adequate Anesthesia-Related Issues: No Anes. Related Issues
--- NOTE | 2023-08-30 09:05 | PM.DS ---
DS: Providers Provider Date of Service: 08/30/23 Date of admission: 08/28/23 14:32 Primary care physician: Stacy Wells MD Consults: 08/28/23 18:39 Consult to Hospitalist Routine Comment: Consulting Provider: Hospitalist Reason For Exam: routine medical management DS: Diagnosis Discharge Diagnosis (1) Femoral neck fracture: Status: Acute (2) Osteopenia: Status: Acute DS: Summary Hospital Course Hospital Course: The patient underwent a successful right hip hemiarthroplasty, they were transferred to PACU and then to the floor to recover. During their stay, their vitals were stable, afebrile at 98.1. Labs were unremarkable. POD 1 they were started on Lovenox for DVT ppx, they also received Physical Therapy services twice a day. Prior to discharge, their dressing was clean dry and intact, and the plan was to be discharged home with VNA services. Time Attestation Discharge Coordination Time (in mins): 30 Quality: Safe Use of Opioids Does Pt have an Active Cancer Diagnosis on the Problem List?: No Quality: Stroke Does the patient have a stroke diagnosis?: No Physical Exam Vital Signs: Vital Signs: Last Vital Signs Temp 98.1 F 08/30/23 08:00 Pulse 88 08/30/23 08:11 Resp 20 08/30/23 08:00 BP 139/65 08/30/23 08:11 Pulse Ox 93 08/30/23 08:11 O2 Del Method Room Air 08/30/23 08:00 O2 Flow Rate 2 08/29/23 15:11 BMI result Body Mass Index 30.5 Const: General: cooperative, healthy appearing and no acute distress Resp: Effort & Inspection: normal respiratory effort and able to speak in complete sentences Cardio: Rate: regular rate Peripheral pulses: Peripheral pulses 2+ throughout GI: Palpation (GI): Soft to palpation Skin: Lesions: no lesions Rashes: no rashes Extrem: Other: right hip dressing is c/d/i. Able to dorsi/plantar flex. Calf is supple and nontender. Sensation intact. Pedal pulse intact. DS: Data Data Completed and Pending Pending studies at discharge: Pending at discharge 08/29/23 12:43 Surgical [PTH] Routine Labs on day of discharge: Laboratory Results - last 24 hr 08/30/23 05:37 Sodium 139 Potassium 4.1 Chloride 105 Carbon Dioxide 24 Anion Gap 14 BUN 11 Creatinine 0.60 Estim Creat Clear Calc 101.2 Estimated GFR > 60 Fasting Glucose 113 H Calcium 8.8 Discharge Plan Discharge Anticipated Discharge Date/Time: 08/30/23 15:58 Patient Disposition: Home Health Service Discharge Diagnosis: s/p right hip kristi Referrals: Stacy Wells MD [Primary Care Provider] - 1 Week Discharge Medications: New acetaminophen 325 mg Tablet 650 mg PO Q6H PRN (Reason: Pain, Mild (Pain Scale 1-3)) 30 Days Qty: 240 0RF docusate sodium 100 mg Capsule 100 mg PO BID 30 Days Qty: 60 0RF oxycodone 5 mg Tablet 5 mg PO Q4H PRN (Reason: Pain, Moderate(Pain Scale 4-6)) 7 Days Qty: 42 0RF Rx Instructions: Partial Fill upon patient request. enoxaparin 40 mg/0.4 mL Syringe 40 mg subcut Q24H 42 Days Qty: 16.8 0RF Continued celecoxib 200 mg capsule 200 mg PO BID Qty: 180 0RF olmesartan-hydrochlorothiazide 40-12.5 mg tablet 1 tab PO DAILY Qty: 90 0RF amlodipine 5 mg tablet 5 mg PO DAILY Qty: 90 1RF meclizine 25 mg tablet 25 mg PO DAILY PRN (Reason: motion sickness) Qty: 10 0RF montelukast 10 mg tablet 10 mg PO DAILY Qty: 90 1RF cyclobenzaprine 10 mg tablet 10 mg PO BEDTIME PRN (Reason: muscle spasm) famotidine 20 mg tablet 20 mg PO BEDTIME prednisone 5 mg tablet 5 mg PO MOFR albuterol sulfate 90 mcg/actuation HFA aerosol inhaler 2 puff inhalation QID PRN (Reason: shortness of breath or wheezing) Qty: 8.5 1RF multivitamin [Daily Multi-Vitamin] Tablet 1 tab PO DAILY zoledronic [id number] [Reclast] 5 mg/100 mL piggyback IV .every 6 months Discharge Orders: Discharge Order (Routine); Ordered 08/30/23 Ordered By: Lauryn Johnson Diet: Advance to usual diet Activity on Discharge: Use cane or walker Stand Alone Forms: Patient Portal Discharge page Print Language: [place] Care Plan Goals: hip fx right hip s/p kristi Health Concerns: none Plan of Treatment: Physical Therapy for total hip arthroplasty: posterior precautions, gait training, ROM, strength Limit stair climbing No showering, no tub bath-keep dressing clean, dry and intact No driving x6 weeks Continue Lovenox x 6 weeks Follow up with [facility] in 2 weeks Assessment: stable for discharge
[2023-08-30 09:07] VITALS: BP 139/65; PULSE 88; O2SAT 93
--- NOTE | 2023-08-30 09:09 | P.F2F_ITS ---
Service Date Service Date: 08/30/23 Encounter Date of encounter: 08/30/23 Reasons for Services Signs and symptoms assessed: s/p right hip kristi Pt. is considered homebound due to recent surgery. Unable to drive, poor balance, poor gait mechanics. Reason for physical therapy: home safety and mobility, therapeutic exercises, restore joint function, gait/transfer training, assess need for DME and ADL training Reason for occupational therapy: home safety and mobility, therapeutic exercises, restore joint function, gait/transfer training, assess need for DME and ADL training Homebound: Leaving the home is medically contraindicated at this time without the asist of a device and/or another person due th the listed conditions above and below. Reason homebound: unsteady gait / fall risk, leg weakness, pain with ambulation, poor balance / fall risk and unable to drive Certification: Based on the above findings, I certify that this patient is confined to the home and needs intermittent longterm care, physical therapy and/or speech t herapy, or continues to need occupational therapy. The patient is under my care, and I have initiated the establishment of the plan of care. The patient will be followed by a physician who will periodically review the plan of care. Time Spent With Patient Time: Total time managing care of this patient today ____ minutes.
[2023-08-30 09:10] VITALS: BP 139/65
[2023-08-30] MEDS: amLODIPine Besylate 5 MG TABLET PO (09:10)
[2023-08-30] MEDS: Multivitamin TABLET 1 TAB PO (09:10)
[2023-08-30] MEDS: Celecoxib 200 MG CAPSULE PO (09:10)
[2023-08-30 09:11] VITALS: BP 139/65
[2023-08-30] MEDS: Valsartan 160 MG TABLET PO (09:11)
[2023-08-30] MEDS: Montelukast Sodium 10 MG TABLET PO (09:11)
[2023-08-30] MEDS: Enoxaparin Sodium 40 MG/0.4 ML SYRINGE SUBCUT (09:11)
[2023-08-30] MEDS: Docusate Sodium 100 MG CAPSULE PO (09:11)
[2023-08-30] MEDS: oxyCODONE HCl ER 10 MG TAB.ER.12H PO (09:14)
--- NOTE | 2023-08-30 10:35 | MHC.CM.PN ---
Addendum entered by Jojo Gonzalez 08/30/23 11:38: [facility] HAS ACCEPTED REFERRAL, SOC PLANNED FOR SUNDAY, PT AWARE Original Note: CM MET WITH PT TO DISCUSS DC PLANNING PT IS AWARE SHE WILL DC HOME TODAY WITH VNA SHE CONFIRMS THE NURSE PROVIDED TEACH FOR LOVENOX ADMINISTRATION SHE IS AWARE CM IS SETTING UP [facility]NA AND WILL LET HER KNOW ONCE AN AGENCY HAS ACCEPTED PT REPORTS HER RIDE WILL BE HERE BETWEEN 1230 AND 1330 HOURS
--- NOTE | 2023-08-30 13:53 | P.PNIM_ITS ---
Subjective Subjective Date of Service: 08/30/23 Interval History: Feeling better good pain control right hip, offers no acute complaints no lightheadedness, no dizziness, tolerating diet, no acute events overnight. Review of Systems All other system reviewed and negative. Physical Exam 2 Vital Signs: Vital Signs: Last Vital Signs Temp 98.1 F 08/30/23 08:00 Pulse 88 08/30/23 09:07 Resp 20 08/30/23 08:00 BP 139/65 08/30/23 09:11 Pulse Ox 93 08/30/23 09:07 O2 Del Method Room Air 08/30/23 08:00 O2 Flow Rate 2 08/29/23 15:11 BMI result Body Mass Index 30.5 Const: Other: General awake alert x3 resting comfortably in no acute distress. Anicteric sclera Neck supple no JVD. CVS regular rate rhythm, Respiratory lungs clear to auscultation, no respiratory distress, no wheeze, no rhonchi. Gastrointestinal abdomen soft, non tender, bowel sounds audible, no guarding , no rigidity. Extremities no edema. Neuro non focal Psych appropriate affect Skin no rash Right hip dry dressing Musculoskeletal, bilateral hand deformity/surgical scar both knees Objective Data Labs 08/29/23 05:23 08/30/23 05:37 Labs: Laboratory Results - last 24 hr 08/30/23 05:37 Anion Gap 14 Estim Creat Clear Calc 101.2 Estimated GFR > 60 Fasting Glucose 113 H Calcium 8.8 Assessment and Plan (1) Femoral neck fracture: Status: Acute (2) HTN (hypertension): Status: Acute Plan 63-year-old female patient with past medical history significant for pemphigus vulgaris, on chronic prednisone, history of hypertension, and arthritis admitted to orthopedic surgery for right hip femoral surgery. Status post right hip hemiarthroplasty POD#1 Good pain control/analgesics as per Orthopedic surgery DC IV fluids Encourage incentive spirometry/PT Hypertension is stable blood pressure resume home medicatios Arthritis continue Flexeril bedtime as needed Pemphigus vulgaris on prednisone, currently on 5 mg 2 times per week,recommend outpatient follow-up with Dermatology. Allergic rhinitis continue home medications DVT prophylaxis as per ortho Disposition as per Orthopedic surgery Will sign off Quality Stroke Does the patient have a stroke diagnosis?: No VTE Prior VTE?: No VTE Risk Level:: Medical - moderate - high VTE Device Contraindication: N/A - Device Ordered VTE Drug Contraindication: N/A - Med Ordered
--- NOTE | 2023-08-31 15:24 | P.OP_ITS ---
Operative Note Operative Note Date of Service: 08/29/23 Narrative: Date of Service: 08/29/23 Pre-op diagnosis: Right femoral neck fracture Post-op diagnosis: same Procedure: Right hip hemiarthroplasty Implants: [place] Accolade2 #4 127 deg with +4 26/44 bipolar Surgeon: Kip Rowe MD Anesthesia: GETA and local Was an Machine Try Out Setter used for this Procedure?: No Estimated blood loss (mL): 200 IV fluids (mL): 800 Pathology: other Condition: stable Disposition: PACU Procedure in detail: Patient was brought to the operative room placed in the lateral decubitus position. All bony prominences were well padded and the was prepped and draped in standard sterile fashion. IV antibiotics per weight were administered and a time-out was called to identify proper site proper procedure proper surgeon. Radiographs were available and confirmed. I began by making a curvilinear incision over the posterolateral aspect of the greater trochanter. Dissection was taken down to the tensor fascia which was incised in line with the incision and a Charnley retractor was placed. The hip was internally rotated and the external rotators were identified. All vessels in the area were cauterized and a full-thickness capsular/external rotator layer was developed in a hockey-stick fashion starting just proximal to the piriformis. This layer was tagged and the displaced femoral neck fracture was identified. Clean-up cuts was performed while protecxtion the posterolateral soft tissues and the head was removed and measured (44 mm) on the back table. I then copiously irrigated the acetabulum and removed all bony fragments. Once this was done I used a cookie cutter to lateralize and a Charnley awl to identify the canal and then sequentially broached up to a 127 deg #4. I then trialed with a standard and + head and a bipolar component matching the femoral head size. I was satisfied with the range of motion and stability and length. Therefore I removed all instrumentation and copiously irrigated. I then placed my final femoral implant and then retrialed. I was satisfied with the +4 26/44 implants. My final bipolar components were then placed. I closed the capsular layer with FiberWire and irrigated copiously. I performed a layered closure with jesi on skin. The patient was placed in sterile dressing extubated brought to recovery room in stable condition there were no known complications.
== END 2023-08-30 13:06 | disposition home health service (06) | DRG 522 ==
LOC: HO.ED 14:08 → HO.EDOVER 14:51 → HO.S3 19:23
PROVIDERS: Orthopaedic Surgery; Physician Assistant; Admitting Provider Physician Assistant; Emergency Provider Student in an Organized Health Care Education/Training Program; PCP Internal Medicine; Visit Provider Physician Assistant
PROC: 0SRR0JA Replacement of Right Hip Joint, Femoral Surface with Synthetic Substitute, Uncemented, Open Approach (ICD-10-PCS; CPT 27125; principal; 2023-08-29 13:00)
DX: S72.001A Fracture of unspecified part of neck of right femur, initial encounter for closed fracture (principal); L10.0 Pemphigus vulgaris; I10 Essential (primary) hypertension; E78.5 Hyperlipidemia, unspecified; M85.80 Other specified disorders of bone density and structure, unspecified site; W19.XXXA Unspecified fall, initial encounter; M19.90 Unspecified osteoarthritis, unspecified site; J30.9 Allergic rhinitis, unspecified; Z79.52 Long term (current) use of systemic steroids; Z79.899 Other long term (current) drug therapy
CPT/HCPCS: 36415; 71045; 72170; 73502; 80048; 80053; 81001; 85025; 85610; 86850; 86900; 86901; 88305; 88311; 97110; 97116; 97162; 97166; 99284; C1758; C1776; J0131; J0690; J1170; J1650; J2250; J2270; J2405; J2704; J2795; J3010; J3480; J7120

== ENCOUNTER → 2023-08-28 14:32 | Outpatient (BNV) | payer OTHER, SELFPAY | PROVIDERS: Admitting Provider Physician Assistant; Emergency Provider Student in an Organized Health Care Education/Training Program; PCP Internal Medicine; Visit Provider Hospitalist | DX: S72.001A Fracture of unspecified part of neck of right femur, initial encounter for closed fracture (principal); I10 Essential (primary) hypertension | CPT/HCPCS: 99222; 99232 ==

== ENCOUNTER → 2023-08-28 14:32 | Outpatient (BNV) | payer OTHER, SELFPAY | PROVIDERS: Admitting Provider Physician Assistant; Emergency Provider Student in an Organized Health Care Education/Training Program; PCP Internal Medicine; Visit Provider Physician Assistant | DX: S72.001A Fracture of unspecified part of neck of right femur, initial encounter for closed fracture (principal); M85.80 Other specified disorders of bone density and structure, unspecified site | CPT/HCPCS: 27236; 99024; 99222; G0180 ==

== ENCOUNTER 2023-09-13 08:38 | Outpatient (REF) | payer OTHER, SELFPAY ==
--- NOTE | ~2023-09-13 | XR_ITS ---
EXAMINATION: XR PELVIS CLINICAL INFORMATION: Fracture neck of right femur COMPARISON: X-rays of the pelvis 08/29/2023 and x-rays of the pelvis and right hip 08/28/2023. TECHNIQUE: AP view of the pelvis. FINDINGS: Hemiarthroplasty of the right hip with normal positioning in appearance and unchanged compared to prior. The remaining bone and joints in the pelvis are normal. XR/XR pelvis 1-2V IMPRESSION: Right hip hemiarthroplasty unchanged without complication by x-ray.
== END 2023-09-13 08:39 | disposition home or self-care (01) ==
LOC: HO.HOSX 08:38
PROVIDERS: Visit Provider Physician Assistant
DX: S72.001A Fracture of unspecified part of neck of right femur, initial encounter for closed fracture (principal)
CPT/HCPCS: 72170

== ENCOUNTER 2023-09-13 14:00 | Outpatient (AMB) | payer OTHER, SELFPAY ==
--- NOTE | 2023-09-13 14:02 | A.OFFVIS_ITS ---
Vital Signs 09/13/23 14:29 Height 5 ft 4 in Weight 180 lb BMI 30.9 Intake Visit Reasons: PO-s/p rt hip kristi 08/29/23 NE Intake Note: Cooper is a 63 year old female who presents today for a post op appointment s/p rt hip kristi 08/29/23 NE. Patient reports she is doing well and she is feeling some dull pain on her hip. Her first outpatient Physical therapy date will be on the 26 of September. She expresses that PT is helping her. Allergies fexofenadine [From Romi] Allergy (Unknown, Verified 09/13/23 14:30) dizziness lisinopril Adverse Reaction (Verified 09/13/23 14:30) cough HPI HPI PO-s/p rt hip kristi 08/29/23 NE: Details: 63-year-old female who presents in the office today 15 days status post right hip hemiarthroplasty, which was performed on 08/29/[address] Rowe. While in the office today the patient reports she is doing well. She confirms a dull pain in the right hip. She confirms attending ?a few? home physical therapy sessions. She will begin formal physical therapy on 09/27/2023. She reports discontinuing the Prednisone and will follow up with Rheumatology for this. Patient reports numbness in the left hip that does not radiate. She denies having pain. [facility] Medical History Positional lightheadedness Nystagmus Osteopenia History of closed Colles' fracture Surgical menopause Annual physical exam Mastalgia in female Mammogram normal Hyperlipidemia Allergic rhinitis Pemphigus vulgaris Osteoarthritis HTN (hypertension) Surgical History History of arthroplasty of right knee H/O colonoscopy S/P RAFY (total abdominal hysterectomy) Hx of cholecystectomy H/O left knee surgery H/O right wrist surgery History of bladder surgery Family History Father Lung cancer Mother Bladder cancer Paternal Grandmother Breast cancer Social History Household Members: Family Housing: House Do you presently have visiting nurse or other home services: No Alcohol intake: current Alcohol intake frequency: holidays/special occasions only Patient Tobacco Use Status: Never used Tobacco e-Cigarette/Vaping Use: Never Used Second Hand Smoke Exposure: No service: No Current occupational status: employed Current occupation: [employer] Cognitive needs: No Hearing needs: No Vision needs: Yes Review of Systems Const All systems reviewed & are unremarkable except as noted in HPI and below Physical Exam Vital Signs: BMI result Body Mass Index 30.9 Const General: cooperative, healthy appearing and no acute distress Resp Effort & Inspection: normal respiratory effort and able to speak in complete sentences Cardio Rate: regular rate Peripheral pulses: Peripheral pulses 2+ throughout GI Palpation (GI): Soft to palpation Skin Lesions: no lesions Rashes: no rashes Extrem Other: Right hip: Incision site is clean, dry, and intact. Tien intact. No surrounding erythema or drainage. No signs of infection. Full ROM. NVI. Assessment & Plan Assessment & Plan (1) History of right hip hemiarthroplasty: Onset Date: ~08/29/23 Comment: Dr. Kip Rowe Code(s): Z96.641 - Presence of right artificial hip joint Category: Surgical Plan Ms. Finney is a 63-year-old female who presents in the office today 15 days status post right hip hemiarthroplasty, which was performed on 08/29/[address] Rowe. While in the office today the patient reports she is doing well. She confirms a dull pain in the right hip. She confirms attending ?a few? home physical therapy sessions. She will begin formal physical therapy on 09/27/2023. She reports discontinuing the Prednisone and will follow up with Rheumatology for this. Patient reports numbness in the left hip that does not radiate. She denies having pain. [place] were removed and steri-stripes were applied. Patient will transition to her first outpatient physical therapy session on 09/27/2023. Discussed for the left hip should the numbness being to radiate or if she has pain, she needs to reach out to the office for further evaluation. Follow up will be in [address] Rowe, or sooner if needed. X-rays of the pelvis which were obtained while in the office today and were reviewed by me, Lauryn Johnson PA-C, revealed: Intact orthopedic hardware with good alignment. Orders: Orders XR pelvis 1-2V 09/13/23 S72.001A - Fracture of unspecified part of neck of right femur, initial encounter for closed fracture Patient Instructions: Scribed by Kelsey Lopez, medical secretary receptionist, for Lauryn Johnson PA-C on 09/13/2023 at 2:17 pm, EST. Coding Level of Care Code Global (93078) Diagnoses History of right hip hemiarthroplasty Z96.641
[2023-09-13 14:29] VITALS: BMI 30.9
== END 2023-09-13 15:02 | disposition home or self-care (01) ==
PROVIDERS: PCP Internal Medicine; Visit Provider Physician Assistant
DX: Z96.641 Presence of right artificial hip joint (principal)
CPT/HCPCS: 99024

== ENCOUNTER 2023-10-11 12:24 | Outpatient (AMB) | payer OTHER, SELFPAY ==
--- NOTE | 2023-10-11 12:34 | MHC.OFFVIS ---
Vital Signs 10/11/23 12:47 Height 5 ft 4 in Weight 180 lb BMI 30.9 Intake Visit Reasons: PO-s/p rt hip kristi 08/29/23 NE Intake Note: Cooper is a 63 year old female who presents today for a post op appointment s/p rt hip kristi 08/29/23 NE. Patient reports she is doing and continues to do formal PT. Allergies fexofenadine [From Romi] Allergy (Unknown, Verified 10/11/23 12:43) dizziness lisinopril Adverse Reaction (Verified 10/11/23 12:43) cough HPI HPI PO-s/p rt hip kristi 08/29/23 NE: Details: Cooper is a 63 year old female who presents today for a post op appointment s/p rt hip kristi 08/29/23 NE. Patient reports she is doing and continues to do formal PT. She has no comlaints and no pain. She is walking without an assistive device. [facility] Medical History Positional lightheadedness Nystagmus Osteopenia History of closed Colles' fracture Surgical menopause Annual physical exam Mastalgia in female Mammogram normal Hyperlipidemia Allergic rhinitis Pemphigus vulgaris Osteoarthritis HTN (hypertension) Surgical History History of right hip hemiarthroplasty (~08/29/23) History of arthroplasty of right knee H/O colonoscopy S/P RAFY (total abdominal hysterectomy) Hx of cholecystectomy H/O left knee surgery H/O right wrist surgery History of bladder surgery Family History Father Lung cancer Mother Bladder cancer Paternal Grandmother Breast cancer Social History Household Members: Family Housing: House Do you presently have visiting nurse or other home services: No Alcohol intake: current Alcohol intake frequency: holidays/special occasions only Patient Tobacco Use Status: Never used Tobacco e-Cigarette/Vaping Use: Never Used Second Hand Smoke Exposure: No service: No Current occupational status: employed Current occupation: [employer] Cognitive needs: No Hearing needs: No Vision needs: Yes Physical Exam Vital Signs: BMI result Body Mass Index 30.9 Extrem Other: inc c/d/i mild Trendelenberg gait no pain with hip ROM Assessment & Plan Assessment & Plan (1) History of right hip hemiarthroplasty: Onset Date: ~08/29/23 Comment: Dr. Kip Rowe Code(s): Z96.641 - Presence of right artificial hip joint Category: Surgical Plan: Cooper is doing exceptionally well. I do recommend that she be cautious and continue a regimen of strengthening. She may follow up in 6 weeks Coding Level of Care Code Est Pt Level 3 (33933) Diagnoses History of right hip hemiarthroplasty Z96.641
[2023-10-11 12:47] VITALS: BMI 30.9
== END 2023-10-11 13:48 | disposition home or self-care (01) ==
PROVIDERS: PCP Internal Medicine; Visit Provider Orthopaedic Surgery
DX: Z47.1 Aftercare following joint replacement surgery (principal); Z96.641 Presence of right artificial hip joint
CPT/HCPCS: 99024

== ENCOUNTER → 2023-10-11 12:24 | Outpatient (BNVA) | payer OTHER, SELFPAY | PROVIDERS: PCP Internal Medicine; Visit Provider Orthopaedic Surgery ==

== ENCOUNTER 2023-10-29 10:29 | Outpatient (AMB) | payer OTHER, SELFPAY ==
[2023-10-29 11:08] VITALS: BP 122/74; PULSE 77; O2SAT 98; BMI 30.7
--- NOTE | 2023-10-29 11:08 | MHC.PC.OV ---
Vital Signs 10/29/23 11:08 Height 5 ft 4 in Weight 179 lb BMI 30.7 BP 122/74 Blood Pressure Location Lt brachial Position Sitting Pulse 77 Pulse Source Pulse Oximeter Pulse Oximetry (%) 98 Oxygen Delivery Method Room Air Intake Visit Reasons: 6 Month F/U Hypertension Intake Note: Pt is here today for her 6mo. f/u HTN Allergies fexofenadine [From Romi] Allergy (Unknown, Verified 10/29/23 11:25) dizziness lisinopril Adverse Reaction (Verified 10/29/23 11:25) cough Medication List - Last Reconciled 10/29/23 by Stacy Wells MD acetaminophen 650 mg (2 x 325 mg) PO Q6H PRN 30 days albuterol sulfate 90 mcg/actuation 2 puffs inhalation QID PRN amlodipine 5 mg PO DAILY cromolyn 200 mg PO QID cyclobenzaprine 10 mg PO BEDTIME PRN famotidine 20 mg PO BEDTIME fexofenadine (Allergy Relief (fexofenadine)) 60 mg PO BID meclizine 25 mg PO DAILY PRN montelukast 10 mg PO DAILY multivitamin (Daily Multi-Vitamin tablet) 1 tab PO DAILY naltrexone 3mg olmesartan-hydrochlorothiazide 40-12.5 mg 1 tab PO DAILY zoledronic xjya-vdgxcwtj-oqblm 5 mg/100 mL (Reclast) ea IV .every 6 months Tobacco use date assessed: 10/29/23 Dental Screening Dental Screen Date: 10/29/23 Did you have a dental visit in the last 12 months?: No Was dental information given to patient?: Patient declined HPI 6 Month F/U Hypertension HPI Details 63-year-old lady here with hypertension currently on olmesartan-hydrochlorothiazide 40-12.5 mg daily and amlodipine 5 mg daily, and has hyperlipidemia currently controlled with diet and exercise, here today for follow-up. She has been feeling well with no complaints at present time [facility] Medical History Positional lightheadedness Nystagmus Osteopenia History of closed Colles' fracture Surgical menopause Annual physical exam Mastalgia in female Mammogram normal Hyperlipidemia Allergic rhinitis Pemphigus vulgaris Osteoarthritis HTN (hypertension) Surgical History History of right hip hemiarthroplasty (~08/29/23) History of arthroplasty of right knee H/O colonoscopy S/P RAFY (total abdominal hysterectomy) Hx of cholecystectomy H/O left knee surgery H/O right wrist surgery History of bladder surgery Family History Father Lung cancer Mother Bladder cancer Paternal Grandmother Breast cancer Social History Household Members: Family Housing: House Do you presently have visiting nurse or other home services: No Alcohol intake: current Alcohol intake frequency: holidays/special occasions only Patient Tobacco Use Status: Never used Tobacco e-Cigarette/Vaping Use: Never Used Second Hand Smoke Exposure: No service: No Current occupational status: employed Current occupation: [employer] Cognitive needs: No Hearing needs: No Vision needs: Yes Questionnaire PHQ-9 Over the last 2 weeks, how often have you been bothered by any of the following problems? Depression Screening Interpretation: Negative Depression Screening Done: Yes Source: Developed by Drs. Manjinder Schulz, Nadine Howard, Jose Ramon Simon and colleagues, with an educational swapna from [employer]. Thrive Questionnaire Date Thrive assessed: 08/29/23 JEFFERY-7 AMB Questionnaire JEFFERY-7 Date JEFFERY - 7 assessed: 05/11/23 Source: Developed by Drs. Manjinder Schulz, Nadine Howard, Jose Ramon Simon and colleagues, with an educational swapna from [employer]. Review of Systems Const Denies fatigue, Denies fever(s), Denies headache(s) and Denies weakness Eyes Denies change in vision ENT Denies dizziness, Denies headache(s) and Denies nasal congestion Card Denies chest pain, Denies lightheadedness, Denies palpitations and Denies dyspnea Resp Denies cough and Denies dyspnea GI Denies abdominal pain and Denies change in bowel habits Denies urinary frequency, Denies dysuria and Denies urinary urgency Musc Reports stiffness (Fingers in both hands) Skin/Breast Denies breast pain, Denies breast mass, Denies lesions and Denies rash Neuro Denies dizziness, Denies headache(s) and Denies weakness Endo Denies fatigue, Denies polydipsia, Denies polyuria and Denies palpitations Aaron/Lymph Denies easy bruising Aller/Immun Denies seasonal rhinorrhea Physical exam (Primary Care) Vital Signs: Last Vital Signs Pulse 77 10/29/23 11:08 BP 122/74 10/29/23 11:08 Pulse Ox 98 10/29/23 11:08 Oxygen Delivery Method Room Air 10/29/23 11:08 BMI result Body Mass Index 30.7 Tobacco/Smoking Status: Tobacco use Status Tobacco use date assessed 10/29/23 10/29/23 11:12 Patient Tobacco Use Status Never used Tobacco 10/29/23 11:09 e-Cigarette/Vaping Use Never Used 10/29/23 11:09 Depression Screening Interpretation: Negative Thrive Assessment: Date of Thrive Assessment Date Thrive assessed 08/29/23 10/29/23 11:09 Const General: no acute distress Orientation/consciousness: patient oriented x3 HENMT Head: Yes normocephalic Mouth: Normal oral and palatal mucosa present Throat: Yes posterior oropharynx normal Eyes General: appearance normal, both eyes and all related structures Neck Neck: Yes full ROM, Yes no lymphadenopathy and Yes supple Resp Effort & Inspection: normal respiratory effort Auscultation: clear to auscultation bilaterally Cardio Rate: regular rate Rhythm: regular rhythm Heart sounds: S1 normal heart sound present and S2 normal heart sound present GI Inspection: Yes normal to inspection Palpation (GI): Soft to palpation Percussion: Yes normal to percussion Auscultation: normal bowel sounds Skin General skin exam: no rashes or lesions noted Neuro General: patient oriented x3, gait normal, tone normal, moves all extremities and no focal motor deficits Extrem Other: Presence of Heberden's and Lexi's nodes noted in fingers General: Yes full ROM Results Reviewed Results Reviewed: Name: Cooper Finney Age/Sex: 63/F : 1960 Unit#: [id number] Attend Dr: Lauryn Johnson PA-C Re08/28/23 Status: DIS IN Location: [place] [address] Disch: 08/30/23 SPEC : [id number] DAVID: 08/29/23 STATUS: COMP REQ : [id number] RECD: 08/29/23-[address]: Lauryn Johnson PA-C COMP: 08/29/23 ENTERED: 08/29/[address]: Stacy Wells MD ORDERED: CBC Auto Diff Test Result Flag Reference WBC 10.5 4.8-10.8 X10*3/uL RBC 4.26 4.20-5.50 X10*6/uL HGB 13.3 12.0-16.0 g/dl HCT 38.9 37.0-47.0 % MCV 91.3 80.0-98.0 fL MCH 31.2 27.0-33.0 pg MCHC 34.2 31.0-35.0 g/dl RDW 12.8 11.0-16.0 % PLT 234 160-400 X10*3/uL MPV 9.0 L 9.4-12.3 fL Neut Pct Auto 62.4 45-73 % ImGran Pct Auto 0.4 0.0-0.4 % Lymp Pct Auto 26.0 20-40 % [place] Pct Auto 7.7 2-11 % Eos Pct Auto 2.9 0-4 % Baso Pct Auto 0.6 0-2 % NRBC Pct Auto 0.0 0.0-0.2 /100WBC ANC Neut Abs # 6.6 2.0-8.3 x10*3/uL ImGran Abs Auto 0.04 H 0.00-0.03 X10*3/uL Lymph Abs Auto 2.7 1.2-4.9 X10*3/uL [place] Abs Auto 0.8 0.1-1.2 X10*3/uL Eos Abs Auto 0.3 0.0-0.4 X10*3/uL Baso Abs Auto 0.1 0.0-0.2 X10*3/uL NRBC Abs Auto 0.000 0.0-0.012 X10*3/uL jeet: Cooper Finney Age/Sex: 63/F : 1960 Unit#: [id number] Attend Dr: Lauryn Johnson PA-C Re08/28/23 Status: DIS IN Location: [facility] 352-1 Disch: 08/30/23 SPEC : [id number] DAVID: 08/30/23 STATUS: COMP REQ : [id number] RECD: 08/30/23 [facility] DR: Lauryn Johnson PA-C COMP: 08/30/23 ENTERED: 08/30/23-[address]: Stacy Wells MD ORDERED: Met Prof Fast Test Result Flag Reference Sodium 139 135-145 mmol/L Potassium 4.1 3.3-5.1 mmol/L CL 105 96-108 mmol/L CO2 24 22-29 mmol/L Gap 14 12-20 BUN 11 9-16 mg/dL Creat 0.60 0.5-1.4 mg/dL Estimated CrCl 101.2 Provided height and weight: 162.56 cm, 80.7 kg. eGFR (calculated from the MDRD study equation) and eCrCl (calculated from the Cockcroft-Gault equation) are based on different parameters and may not yield comparable results. If eCrCl result is absurd, please check patient's height/weight. EGFR > 60 NOTE: For -Iraqi individuals, multiply the result by 1.210. Chronic Kidney Disease: Estimated GFR < 60 mL/min/1.73m2 Severe Kidney Disease: Estimated GFR < 15 mL/min/1.73m2 FBS 113 H 60-99 mg/dL A fasting glucose from 100-125 mg/dl is considered impaired (pre-diabetes). CA 8.8 8.4-10.2 mg/dL Assessment and Plan Assessment & Plan (1) HTN (hypertension): Code(s): I10 - Essential (primary) hypertension Qualifiers: Hypertension type: primary hypertension Qualified Code(s): I10 - Essential (primary) hypertension Plan: Blood pressure at goal of less than 130/80. Continue with current medication. Reinforced importance of following a low sodium diet, getting regular exercise, and lowering stress levels. (2) Hyperlipidemia: Code(s): E78.5 - Hyperlipidemia, unspecified Qualifiers: Hyperlipidemia type: pure hypercholesterolemia Qualified Code(s): E78.00 - Pure hypercholesterolemia, unspecified Plan: Reviewed last fasting lipid profile from 06/19/2023 which showed results within normal limits. Continue with adherence to low-cholesterol diet and regular exercise, at least 30 minutes 3 to 4 times a week. Advised patient to make healthy food choices, eat more fruits, vegetables, whole grains, wild caught fish and low-fat dairy. Limit amount of meat and fried or fatty food products, as well as processed foods and fast foods. Coding Level of Care Code Est Pt Level 4 (45506) Complex EM visit Add On G2211 Diagnoses Primary hypertension I10 Hypertension type: primary hypertension Pure hypercholesterolemia E78.00 Hyperlipidemia type: pure hypercholesterolemia
== END 2023-10-29 12:09 | disposition home or self-care (01) ==
PROVIDERS: PCP Internal Medicine; Visit Provider Internal Medicine
DX: I10 Essential (primary) hypertension (principal); E78.00 Pure hypercholesterolemia, unspecified
CPT/HCPCS: 99214; G2211

== ENCOUNTER 2023-11-06 14:15 | Outpatient (REF) | payer OTHER, SELFPAY ==
[2023-11-06 14:39] LABS: MANUAL DIFF FLAG NO
[2023-11-06 14:46] LABS: Basophils Percent Auto 0.1 % (0-2); Eosinophils Absolute Auto 0.2 X10*3/uL (0.0-0.4); Eosinophils Percent Auto 2.1 % (0-4); Hematocrit 37.4 % (37.0-47.0); Hemoglobin 12.6 g/dl (12.0-16.0); Imm Gran Abs Auto 0.02 X10*3/uL (0.00-0.03); Imm Gran Pct Auto 0.3 % (0.0-0.4); Lymphocytes Percent Auto 25.6 % (20-40); Mean Corpuscular HGB Conc 33.7 g/dl (31.0-35.0); Mean Corpuscular Hemoglobin 30.4 pg (27.0-33.0); Mean Corpuscular Volume 90.3 fL (80.0-98.0); Monocytes Absolute Auto 0.7 X10*3/uL (0.1-1.2); Monocytes Percent Auto 8.6 % (2-11); Neutrophils Percent Auto 63.3 % (45-73); Platelet Count 275 X10*3/uL (160-400); Red Blood Count 4.14 X10*6/uL (4.20-5.50); Red Cell Distribution Width 13.2 % (11.0-16.0); White Blood Count 7.9 X10*3/uL (4.8-10.8)
[2023-11-06 15:28] LABS: Alanine Aminotransferase 11 U/L (0-31); Albumin Level 4.3 g/dL (3.5-5.0); Alkaline Phosphatase 79 U/L (39-117); Anion Gap 15 (12-20); Aspartate Amino Transferase 15 U/L (5-31); Bilirubin Total 0.3 mg/dL (0.0-1.0); Blood Urea Nitrogen 17 mg/dL (9-16); Calcium 9.7 mg/dL (8.4-10.2); Carbon Dioxide 25 mmol/L (22-29); Chloride 103 mmol/L (96-108); Estimated Glomerular Filt Rate > 60; Glucose Random 100 mg/dL (60-115); Potassium 3.6 mmol/L (3.3-5.1); Sodium 139 mmol/L (135-145); Total Protein 6.6 g/dL (6.5-8.0)
[2023-11-08 22:28] LABS: TS Negative Control Passed; TS Panel A 0; TS Panel B 0; TS Positive Control Passed; TSpotTB Negative (Negative)
[2023-11-09 15:57] LABS: Glucose-6-Phosphate Dehydrogen 18.7 U/g Hgb (7.0-20.5)
== END 2023-11-06 14:16 | disposition home or self-care (01) ==
LOC: HO.LAB 14:15
PROVIDERS: Absent Provider Family Medicine; PCP Internal Medicine; Visit Provider Physician Assistant
DX: L50.8 Other urticaria (principal)
CPT/HCPCS: 36415; 80053; 82955; 85025; 86481

== ENCOUNTER 2023-11-16 11:56 | Outpatient (AMB) | payer OTHER, SELFPAY ==
--- NOTE | 2023-11-16 12:07 | AM.OFFWIN_ITS ---
Intake Vital Signs 11/16/23 12:08 Height 5 ft 4 in Weight 176 lb BMI 30.2 BP 108/66 Blood Pressure Location Rt brachial Position Sitting Pulse 79 Pulse Source Pulse Oximeter Temp 98.4 F Temp Source Oral Pulse Oximetry (%) 98 Oxygen Delivery Method Room Air Intake Visit Reasons: EP removal of stitches Intake Note: pt here for suture removal Patient Tobacco Use Status: Never used Tobacco Allergies fexofenadine [From Romi] Allergy (Unknown, Verified 11/16/23 12:07) dizziness lisinopril Adverse Reaction (Verified 11/16/23 12:07) cough Do you need a note to return to daycare/school/sports/work: No HPI HPI Comments History of Present Illness Details Patient is a 63-year-old female who is here for suture removal, she said she had the sutures placed last week by a ground support equipment assembler after a biopsy was taken. She states there are 2 sutures, she has had no issues with the biopsy site, bleeding or weeping of any materials or warmth on the site. [facility] Medical History Positional lightheadedness Nystagmus Osteopenia History of closed Colles' fracture Surgical menopause Annual physical exam Mastalgia in female Mammogram normal Hyperlipidemia Allergic rhinitis Pemphigus vulgaris Osteoarthritis HTN (hypertension) Surgical History History of right hip hemiarthroplasty (~08/29/23) History of arthroplasty of right knee H/O colonoscopy S/P RAFY (total abdominal hysterectomy) Hx of cholecystectomy H/O left knee surgery H/O right wrist surgery History of bladder surgery Family History Father Lung cancer Mother Bladder cancer Paternal Grandmother Breast cancer Social History Household Members: Family Housing: House Do you presently have visiting nurse or other home services: No Alcohol intake: current Alcohol intake frequency: holidays/special occasions only Patient Tobacco Use Status: Never used Tobacco e-Cigarette/Vaping Use: Never Used Second Hand Smoke Exposure: No service: No Current occupational status: employed Current occupation: [employer] Cognitive needs: No Hearing needs: No Vision needs: Yes Physical Exam Vital Signs: Last Vital Signs Temp 98.4 F 11/16/23 12:08 Pulse 79 11/16/23 12:08 BP 108/66 11/16/23 12:08 Pulse Ox 98 11/16/23 12:08 Oxygen Delivery Method Room Air 11/16/23 12:08 BMI result Body Mass Index 30.2 Const General: cooperative, healthy appearing, comfortable and no acute distress Orientation/consciousness: patient oriented x3 Limitations: no limitations Resp Effort & Inspection: normal respiratory effort and able to speak in complete sentences Skin Other: 2 sutures on left flank, CDI Neuro General: patient oriented x3 Assessment & Plan Assessment & Plan (1) Visit for suture removal: Code(s): Z48.02 - Encounter for removal of sutures Plan: removed 2 sutures, no signs of infection noted, biopsy is healing well. Plan See above Coding Level of Care Code Est Pt Level 3 (15113) Diagnoses Visit for suture removal Z48.02
[2023-11-16 12:08] VITALS: BP 108/66; PULSE 79; TEMP 36.9; O2SAT 98; BMI 30.2
== END 2023-11-16 12:40 | disposition home or self-care (01) ==
PROVIDERS: PCP Internal Medicine; Visit Provider Physician Assistant
DX: S30.811D Abrasion of abdominal wall, subsequent encounter (principal); Z48.02 Encounter for removal of sutures
CPT/HCPCS: 15853; 99213

== ENCOUNTER 2023-12-27 11:33 | Outpatient (REF) | payer OTHER, SELFPAY ==
[2023-12-27 12:03] LABS: MANUAL DIFF FLAG NO
[2023-12-27 12:28] LABS: Basophils Percent Auto 0.2 % (0-2); Eosinophils Absolute Auto 0.3 X10*3/uL (0.0-0.4); Hematocrit 34.9 % (37.0-47.0); Hemoglobin 11.9 g/dl (12.0-16.0); Imm Gran Abs Auto 0.01 X10*3/uL (0.00-0.03); Imm Gran Pct Auto 0.2 % (0.0-0.4); Lymphocytes Absolute Auto 1.7 X10*3/uL (1.2-4.9); Mean Corpuscular HGB Conc 34.1 g/dl (31.0-35.0); Mean Corpuscular Hemoglobin 31.8 pg (27.0-33.0); Mean Corpuscular Volume 93.3 fL (80.0-98.0); Mean Platelet Volume 9.1 fL (9.4-12.3); Monocytes Absolute Auto 0.5 X10*3/uL (0.1-1.2); Monocytes Percent Auto 9.2 % (2-11); Neutrophils Absolute Auto 2.8 x10*3/uL (2.0-8.3); Neutrophils Percent Auto 52.4 % (45-73); Platelet Count 214 X10*3/uL (160-400); Red Blood Count 3.74 X10*6/uL (4.20-5.50); Red Cell Distribution Width 14.3 % (11.0-16.0); White Blood Count 5.4 X10*3/uL (4.8-10.8)
[2023-12-27 12:52] LABS: Alanine Aminotransferase 19 U/L (0-31); Albumin Level 4.2 g/dL (3.5-5.0); Alkaline Phosphatase 79 U/L (39-117); Anion Gap 11 (12-20); Aspartate Amino Transferase 22 U/L (5-31); Bilirubin Total 0.7 mg/dL (0.0-1.0); Blood Urea Nitrogen 12 mg/dL (9-16); Calcium 9.6 mg/dL (8.4-10.2); Carbon Dioxide 28 mmol/L (22-29); Chloride 107 mmol/L (96-108); Estimated Glomerular Filt Rate > 60; Glucose Random 91 mg/dL (60-115); Potassium 4.1 mmol/L (3.3-5.1); Sodium 142 mmol/L (135-145); Total Protein 6.5 g/dL (6.5-8.0)
== END 2023-12-27 11:34 | disposition home or self-care (01) ==
LOC: HO.LAB 11:33
PROVIDERS: PCP Internal Medicine; Visit Provider Physician Assistant
DX: L50.8 Other urticaria (principal)
CPT/HCPCS: 36415; 80053; 85025

== ENCOUNTER 2024-02-19 10:18 | Outpatient (REF) | payer OTHER, SELFPAY ==
[2024-02-19 10:41] LABS: MANUAL DIFF FLAG NO
[2024-02-19 10:50] LABS: Basophils Percent Auto 0.2 % (0-2); Eosinophils Absolute Auto 0.2 X10*3/uL (0.0-0.4); Eosinophils Percent Auto 3.4 % (0-4); Hematocrit 34.9 % (37.0-47.0); Hemoglobin 11.9 g/dl (12.0-16.0); Imm Gran Abs Auto 0.03 X10*3/uL (0.00-0.03); Imm Gran Pct Auto 0.5 % (0.0-0.4); Lymphocytes Absolute Auto 1.7 X10*3/uL (1.2-4.9); Lymphocytes Percent Auto 27.6 % (20-40); Mean Corpuscular HGB Conc 34.1 g/dl (31.0-35.0); Mean Corpuscular Volume 93.8 fL (80.0-98.0); Mean Platelet Volume 8.7 fL (9.4-12.3); Monocytes Absolute Auto 0.5 X10*3/uL (0.1-1.2); Neutrophils Absolute Auto 3.7 x10*3/uL (2.0-8.3); Neutrophils Percent Auto 60.3 % (45-73); Platelet Count 197 X10*3/uL (160-400); Red Blood Count 3.72 X10*6/uL (4.20-5.50); Red Cell Distribution Width 12.8 % (11.0-16.0); White Blood Count 6.1 X10*3/uL (4.8-10.8)
[2024-02-19 11:51] LABS: Alanine Aminotransferase 21 U/L (0-31); Albumin Level 4.2 g/dL (3.5-5.0); Alkaline Phosphatase 77 U/L (39-117); Anion Gap 9 (12-20); Aspartate Amino Transferase 27 U/L (5-31); Bilirubin Total 0.7 mg/dL (0.0-1.0); Blood Urea Nitrogen 13 mg/dL (9-16); Calcium 9.7 mg/dL (8.4-10.2); Carbon Dioxide 29 mmol/L (22-29); Chloride 109 mmol/L (96-108); Estimated Glomerular Filt Rate > 60; Glucose Random 98 mg/dL (60-115); Potassium 4.3 mmol/L (3.3-5.1); Sodium 143 mmol/L (135-145); Total Protein 6.3 g/dL (6.5-8.0)
== END 2024-02-19 10:19 | disposition home or self-care (01) ==
LOC: HO.LAB 10:18
PROVIDERS: PCP Internal Medicine; Visit Provider Physician Assistant
DX: L50.8 Other urticaria (principal)
CPT/HCPCS: 36415; 80053; 85025

== ENCOUNTER 2024-04-02 13:29 | Outpatient (REF) | payer OTHER, SELFPAY ==
--- NOTE | ~2024-04-02 | XR_ITS ---
EXAMINATION: XR CERVICAL SPINE CLINICAL INFORMATION: Cervicalgia M54.2. Right sided neck pain present for the last 5 months. COMPARISON: None available TECHNIQUE: 6 views of the cervical spine, inclusive of flexion and extension views, were obtained. FINDINGS: There is normal cervical lordosis. There is loss of C5-C6 and C6-7 disc heights with ventral spondylosis. Mild narrowing of right neural foramina at C5-6 and bilateral neural foramina at C6-7 disc level is noted. The findings are slightly worse on the right at the C6-7 disc level. There is moderate to significant left C4-5 and moderate C5-6 facet joint arthropathy. No visible acute fracture, dislocation or lytic process seen. The prevertebral soft tissues are normal. XR/XR cervical spine min 6V IMPRESSION: Degenerative changes C5-6 and C6-7 disc levels. Left facet arthropathy C4-5 and C5-6 disc levels as described above. No acute fracture or dislocation seen. Electronically signed by: Wally Silver MD 04/24/2024 01:57 PM EST
== END 2024-04-02 13:30 | disposition home or self-care (01) ==
LOC: HO.HMGCX 13:29
PROVIDERS: PCP Internal Medicine; Visit Provider Internal Medicine
DX: M54.2 Cervicalgia (principal)
CPT/HCPCS: 72052

== ENCOUNTER → 2024-04-02 13:29 | Outpatient (AMB) | payer OTHER, SELFPAY ==
[2024-04-02 13:45] VITALS: BP 108/70; PULSE 80; O2SAT 98; BMI 29.5
--- NOTE | 2024-04-02 13:45 | MHC.PC.OV ---
Vital Signs 04/02/24 13:45 Height 5 ft 4 in Weight 172 lb BMI 29.5 BP 108/70 Blood Pressure Location Lt brachial Position Sitting Pulse 80 Pulse Source Pulse Oximeter Pulse Oximetry (%) 98 Oxygen Delivery Method Room Air Intake Visit Reasons: neck pain Intake Note: Pt is here today c/o neck pain is currently on muscle relaxer and request a referral Allergies fexofenadine [From Romi] Allergy (Unknown, Verified 04/02/24 14:26) dizziness lisinopril Adverse Reaction (Verified 04/02/24 14:26) cough Medication List - Last Reconciled 04/02/24 by Stacy Wells MD acetaminophen 650 mg (2 x 325 mg) PO Q6H PRN 30 days albuterol sulfate 90 mcg/actuation 2 puffs inhalation QID PRN amlodipine 5 mg PO DAILY cromolyn 200 mg PO QID cyclobenzaprine 10 mg PO BEDTIME PRN dapsone 50 mg PO DAILY famotidine 20 mg PO BEDTIME fexofenadine (Allergy Relief (fexofenadine)) 60 mg PO BID meclizine 25 mg PO DAILY PRN montelukast 10 mg PO DAILY multivitamin (Daily Multi-Vitamin tablet) 1 tab PO DAILY naltrexone 3mg olmesartan-hydrochlorothiazide 40-12.5 mg 1 tab PO DAILY zoledronic zvyy-bxzubtol-bdnqf 5 mg/100 mL (Reclast) ea IV .every 6 months Tobacco use date assessed: 04/02/24 Dental Screening Dental Screen Date: 04/02/24 Did you have a dental visit in the last 12 months?: Yes Did you have a dental problem in the last 6 months where you did not have access to dental care?: No Was dental information given to patient?: Patient has dentist HPI neck pain HPI Details The patient is a 63-year-old female presenting with neck pain. She reports the onset of this pain approximately five to six months ago, describing it as a sharp pain localized to the right side of the neck, occasionally extending to her head and ear. The pain does not radiate downwards and has no associated numbness or tingling except when holding a phone or tablet for an extended period, which leads to numbness in the hands. She has tried using heat and various topical creams such as Salonpas and Vaseline-based arthritis cream without significant relief. The pain appears to be exacerbated by laying on her right side, and she experiences more discomfort when she stops moving after standing or working all day. She also mentions a history of osteoarthritis, having undergone bilateral knee replacements and a right hip replacement. She denies any history of previous neck pain or recent trauma. [facility] Medical History Positional lightheadedness Nystagmus Osteopenia History of closed Colles' fracture Surgical menopause Annual physical exam Mastalgia in female Mammogram normal Hyperlipidemia Allergic rhinitis Pemphigus vulgaris Osteoarthritis HTN (hypertension) Surgical History History of right hip hemiarthroplasty (~08/29/23) History of arthroplasty of right knee H/O colonoscopy S/P RAFY (total abdominal hysterectomy) Hx of cholecystectomy H/O left knee surgery H/O right wrist surgery History of bladder surgery Family History Father Lung cancer Mother Bladder cancer Paternal Grandmother Breast cancer Social History Household Members: Family Housing: House Do you presently have visiting nurse or other home services: No Alcohol intake: current Alcohol intake frequency: holidays/special occasions only Patient Tobacco Use Status: Never used Tobacco e-Cigarette/Vaping Use: Never Used Second Hand Smoke Exposure: No service: No Current occupational status: employed Current occupation: [employer] Cognitive needs: No Hearing needs: No Vision needs: Yes Questionnaire PHQ-9 Over the last 2 weeks, how often have you been bothered by any of the following problems? 1. Little interest or pleasure in doing things: not at all 2. Feeling down, depressed, or hopeless: not at all 3. Trouble falling or staying asleep, or sleeping too much: not at all 4. Feeling tired or having little energy: not at all 5. Poor appetite or overeating: not at all 6. Feeling bad about yourself - or that you are a failure or have let yourself or your family down: not at all 7. Trouble concentrating on things, such as reading the newspaper or watching television: not at all 8. Moving or speaking so slowly that other people could have noticed. Or the opposite - being so fidgety or restless that you have been moving around a lot more than usual: not at all 9. Thoughts that you would be better off or of hurting yourself in some way: not at all Total score: 0 Source: Developed by Drs. Manjinder Schulz, Nadine Howard, Jose Ramon Simon and colleagues, with an educational swapna from [employer]. Thrive Questionnaire Date Thrive assessed: 03/26/24 I am a: Patient What is your living situation today?: I choose not to answer this question Within the past 12 months, did the food you bought not last and you didn't have the money to get more?: I choose not to answer this question Within the past 12 months, did you worry whether your food would run out before you got money to buy more?: I choose not to answer this question Do you have trouble paying for medicines?: No Do you have trouble getting transportation to medical appointments?: No Do you have trouble paying your heating and electricity bill?: No Do you have trouble taking care of your child, family member or friend?: No Do you have trouble with day-to-day activities such as bathing, preparing meals, shopping, managing finances, etc.?: No Are you currently unemployed and looking for a job?: No Are you interested in more education?: No Please select the resources that you would like help with: None Currently or been in a relationship where the following occur: I choose not to answer THRIVE Score: 0 AUDIT C Alcohol Use Questionnaire (AUDIT-C) 1. How often do you have a drink containing alcohol?: Monthly or less 2. How many drinks containing alcohol do you have on a typical day when you are drinking?: 1 or 2 3. How often do you have six or more drinks on one occasion?: Less than monthly Total Score: 2 JEFFERY-7 AMB Questionnaire JEFFERY-7 Date JEFFERY - 7 assessed: 05/11/23 Feeling nervous, anxious, or on edge: 0 = Not at all Not being able to stop or control worryin = Not at all Worrying too much about different things: 0 = Not at all Trouble relaxin = Not at all Being so restless that it is hard to sit still: 0 = Not at all Becoming easily annoyed or irritable: 0 = Not at all Feeling afraid as if something awful might happen: 0 = Not at all Total JEFFERY-7 score (0-4 normal; 5-9 mild; 10-14 moderate; 15-21 severe): 0 Source: Developed by Drs. Manjinder Schulz, Nadine Howard, Jose Ramon Simon and colleagues, with an educational swapna from [employer]. Review of Systems Const Reports no additional complaints and Denies weakness ENT Reports no additional complaints Card Reports no additional complaints Resp Reports no additional complaints Musc Details: Reports numbness in hands associated with prolonged holding of a phone or table Denies tingling Skin/Breast Denies lesions and Denies rash Neuro Reports no additional complaints, Denies focal weakness, Denies radicular pain, Denies Sensory deficit (Neuro), Denies tingling, Denies paresthesias and Denies weakness Physical exam (Primary Care) Vital Signs: Last Vital Signs Pulse 80 04/02/24 13:45 BP 108/70 04/02/24 13:45 Pulse Ox 98 04/02/24 13:45 Oxygen Delivery Method Room Air 04/02/24 13:45 BMI result Body Mass Index 29.5 Tobacco/Smoking Status: Tobacco use Status Tobacco use date assessed 04/02/24 04/02/24 13:50 Patient Tobacco Use Status Never used Tobacco 04/02/24 13:50 e-Cigarette/Vaping Use Never Used 04/02/24 13:50 PHQ-9: PHQ-9 Score PHQ-9: Total score 0 04/02/24 14:27 Thrive Assessment: Date of Thrive Assessment Date Thrive assessed 03/26/24 04/02/24 13:50 Currently or been in a relationship where the following occur: I choose not to answer Const Orientation/consciousness: patient oriented x3 Neck Other: - Musculoskeletal/Neck- Evaluated with range of motion maneuvers; no pain noted upon touching chin toward chest, no lymphadenopathyt, and pain only present with turning neck opposite to the affected side. Resp Auscultation: clear to auscultation bilaterally Cardio Other: S1-S2 present regular rate and rhythm Skin General skin exam: no rashes or lesions noted Neuro General: patient oriented x3, gait normal, tone normal, moves all extremities, Normal light touch and pain sensation and no focal motor deficits Sensory Exam: No Sensory deficit (Neuro) Extrem General: Yes full ROM, Yes no joint enlargement and Yes no clubbing, cyanosis or edema Coding Level of Care Code Est Pt Level 4 (09875) Diagnoses Neck pain M54.2 Assessment & Plan Assessment & Plan (1) Neck pain: Code(s): M54.2 - Cervicalgia Category: Medical Plan - ordered cervical spine x-rays with six views to evaluate for musculoskeletal abnormalities not evident clinically. - Conservative management with Tylenol arthritis 1 tablet every 8 hours as needed for pain is recommended as it helps relieve symptoms. - Referral to physical therapy is advised for further management focusing on muscle relaxation and traction. Options include using local physical therapy facilities. - Consideration of future interventions such as injections if conservative measures fail, with a specific emphasis on relief from muscle-related origin as opposed to disc pathology. I discussed with the patient the probable muscular origin of her neck pain, given the lack of radicular symptoms and the nature of her discomfort. Though injections may be an option in the future, I emphasized beginning with conservative care, including physical therapy. We also reviewed the specifics regarding referrals and the process for initiating physical therapy, should symptoms persist or worsen. I assured continued evaluation and adjustment of the treatment plan as needed, based on her response to initial management strategies. - Seek care immediately if experiencing any new or worsening numbness, tingling, or weakness. Patient was informed and verbally consented to the use of an ambient scribe for clinic note documentation during this visit. Orders: Orders XR cervical spine min 6V Today M54.2 - Cervicalgia PT Evaluation and Treatment Today M54.2 - Cervicalgia
--- OUTSIDE RECORDS SUMMARY | 2024-04-08 19:31 | XMS_ITS | Data Portability ---
Author Organization [place] [facility] Justin Massey [facility] [place] Address [address] [place] [address] Care Team Providers Care Slice Plug Cutter Operator Name Role Phone ARIANNA FREEDANNA Primary Care Provider [phone] Assessment No assessment recorded. Plan of Treatment Reminders Order Date Submit Date Provider Last Modified By Organization Details Last Modified Time Details Appointments None record ed. Lab None record ed. Referral None record ed. Procedures None record ed. Surgeries None record ed. Imaging XR, knee, 3 view 023 08/26/19 23 [email or web address] 7 [facility], [address], [place], [address], 3 14:30:47 Medication Orders None record ed. Patient TargetsNo targets recorded. Patient Instructions Encounter Date Encounter Id Patient Instructions Last Modified By Organization Details Last Modified Time 08/25/2022 [id number] AP, lateral, and patellar views of the right knee taken today demonstrate satisfactory position and alignment of components following right total knee replacement. [email or web address] Not available 08/25/2022 12:18:05 Reason for Referral None Reported. Procedures Surgical History Date Name Laterality Status Provider Name and Address Organization Details Recorded Time Hand Surgery completed Richard Kaminski - [facility] [place] 08/25/2022 11:55:40 Knee Surgery completed Richard Kaminski - [facility] [place] 08/25/2022 11:55:54 Imaging Results None recorded. Procedure Notes None recorded. Medical Equipment None Reported. Allergies Allergen ID Allergen Name Allergen Category Reaction Reaction Severity Criticality Documentation Date Start Date Code Code System Note Provider Name and Address Organization Details Recorded Time 3179 cow milk allergeni c extract food,medi cation Not available Not available Not available 08/25/2022 40505 5 RxNorm Richard Dutton null, [place] [facility] [place] 3 11:55:05 3180 Romi medicatio n Not available Not available Not available 08/25/2022 51138 6 RxNorm Richard Dutton null, [place] [facility] [place] 3 11:55:10 Medications Name Sig Start Date Stop Date Status Note LastModified by Organization Details LastModified Time celecoxib 200 mg capsule active Not Available Not Available Not Available amoxicillin 500 mg capsule TAKE 1 CAPSULE BY MOUTH TWICE A DAY FOR 10 DAYS active Not Available Not Available No t Available meloxicam 15 mg tablet TAKE 1 TABLET BY MOUTH DAILY FOR 15 DAYS active Not Available Not Available Not Available ondansetron HCl 4 mg tablet TAKE 1-2 TABLETS BY MOUTH EVERY 8 HOURS NEEDED FOR NAUSEA FOR UP TO 14 DAYS active Not Available Not Available No t Available prednisone 5 mg tablet active Not Available Not Available No t Available amlodipine 5 mg tablet TAKE 1 TABLET BY MOUTH EVERY DAY active Not Available Not Available No t Available aspirin 81 mg tablet,delay ed release TAKE 1 TABLET (81 MG TOTAL) BY MOUTH 2 (TWO) TIMES A DAY FOR 28 DAYS. FOR DVT PROPHYLAXIS . active Not Available Not Available No t Available acetaminophe n 500 mg tablet TAKE 2 TABLETS (1,000 MG TOTAL) BY MOUTH EVERY 8 (EIGHT) HOURS FOR 28 DAYS. active Not Available Not Available No t Available cefadroxil 500 mg capsule TAKE 1 CAPSULE BY MOUTH TWICE A DAY FOR 7 DAYS active Not Available Not Available No t Available methocarbamo l 750 mg tablet TAKE 1 TABLET (750 MG TOTAL) BY MOUTH 4 (FOUR) TIMES A DAY NEEDED FOR UP TO 14 DAYS. active Not Available Not Available No t Available pantoprazole 40 mg tablet,delay ed release TAKE 1 TABLET (40 MG TOTAL) BY MOUTH EVERY MORNING ON AN EMPTY STOMACH FOR 28 DAYS. active Not Available Not Available No t Available lisinopril 20 mg-hydrochlo rothiazide 25 mg tablet TAKE 1 TABLET BY MOUTH EVERY DAY active Not Available Not Available No t Available montelukast 10 mg tablet TAKE 1 TABLET BY MOUTH EVERY DAY active Not Available Not Available No t Available albuterol sulfate HFA 90 mcg/actuatio n aerosol inhaler INHALE 2 PUFFS 4 TIMES A DAY NEEDED FOR SHORTNESS OF BREATH OR WHEEZING active Not Available Not Available Not Available oxycodone 5 mg tablet TAKE 1 TO 2 TABLETS (5-10 MG TOTAL) BY MOUTH EVERY 4 HOURS NEEDED FOR PAIN active Not Available Not Available No t Available olmesartan 40 mg-hydrochlo rothiazide 12.5 mg tablet TAKE 1 TABLET BY MOUTH EVERY DAY active Not Available Not Available No t Available ciprofloxaci n 0.3 %-dexamethas one 0.1 % ear drops,suspen adelita PUT 4 DROPS INTO AFFECTED EAR(S) 2 TIMES A DAY FOR SEVEN DAYS active Not Available Not Available No t Available nitrofuranto in monohydrate/ macrocrystal s 100 mg capsule TAKE 1 CAPSULE BY MOUTH EVERY 12 HOURS FOR 5 DAYS MUST ADMINISTER WITH A MEAL/FOOD active Not Available Not Available No t Available Senexon-S 8.6 mg-50 mg tablet PLEASE SEE ATTACHED FOR DETAILED DIRECTIONS active Not Available Not Available N ot Available Flowflex COVID-19 Antigen Home Test kit active Not Available Not Available Not Available Vitals None Recorded Social History Question Answer Notes LastModified by Organizat ion Details LastModified Time Tobacco Smoking Status Never Smoker Richard luu, [place] [facility] [place] 08/25/2022 11:57:32 What Is Your Level Of Alcohol Consumption? Occasional [email or web address] Information not available 08/25/2022 How Many Times Per Week Do You Consume Alcohol? Less Than 1 Time Per Week [email or web address] Information not available 08/25/2022 Do You Use Any Illicit Or Recreational Drugs? No [email or web address] Information not available 08/25/2022 Do You Or Have You Ever Used Any Other Forms Of Tobacco Or Nicotine? No [email or web address] Information not available 08/25/2022 Sex: Unknown Functional Status None recorded. Mental Status None recorded. Family History Relationship Description Onset Age of this Age Resolved Age Notes LastModified by Organization Details LastModified Time Father Arthritis [email or web address] Not avai lable 08/25/2022 11:58:01 Father Family history of malignant neoplasm [email or web address] Not available 11:58:13 Father Rheumatoid arthritis [email or web address] Not available 11:58:34 Mother Arthritis [email or web address] Not avai lable 08/25/2022 11:58:01 Mother Family history of malignant neoplasm [email or web address] Not available 11:58:13 Mother Osteoarthrit is Not available 11:58:24 Medical History Condition Response Autoimmune disease Y Osteopenia Y Hypertension Y Gynecological HistoryNo gynecological history recorded. Obstetrics History GPAL:G 0 P 0 0 0 0 Past Encounters Encounter ID Performer Location Encounter Start Date Encounter Closed Date Diagnosis/Indication Diagnosis SNOMED-CT Code Diagnosis ICD10 Code [id number] Demario Morales MD [address] [place] [address] 08/25/2022 11:22:17 08/25/2022 12:21:17 History of right total knee replacement 2249724769 569572 Z96.651 Aftercare 664488062 Z47. 1 Health Concerns Section Related Observation LastModified by Organization Detai ls LastModified Time None Recorded Concern Status LastModified by Organization Details LastModified Time None Recorded Advance Directives Directive None Recorded Payers Encounter Date Sequence Insurance Name Policy Number Policy Young Covered Member ID Young Member ID Guarantor Name 08/25/2022 1 [facility] [id number] Cooper Finney [id number] Cooper Finney Notes Date Note Type Note Provider Name and Address Organization Details Recorded Time 08/25/2022 text/html HPI: Patient is here for {{1 2 3* 4 6 8 12}} {{week(s) month(s)* year}} follow-up for a {{LEFT RIGHT* BILAT ERAL}} total knee replacement. She has recovered very well. She reports really 0 pain at baseline. She has 1 out of 10 at worst. She is back to all these. She functions well. She is very happy overall, ? ? Patient reports good pain relief in the knee and satisfactory druze of function in terms of activities of daily living. Physical Exam: Patient is well nourished, well-developed, in no acute distress, with appropriate mood and affect. The patient is oriented to time, place, and person. Respirations are even and unlabored. There is no inguinal adenopathy. Examination of the contralateral knee shows normal range of motion, strength, no tenderness, and well-healed skin incision. The affected limb is well-perfused, with well healed skin incision. The patient demonstrates good knee motion, stability, and strength. The knee moves from 0-130 degrees. The alignment of the knee is {{varus valgus neut ral*}}. Muscle strength is normal. Pedal pulses are palpable. Hip examination, including flexion and internal rotation, was negative in that groin pain was not produced. Assessment/Plan: This patient is functioning well {{1 2 3* 4 6 8 12}} {{week(s) month(s)* year}} after {{LEFT RIGHT* BILAT ERAL}} total knee arthroplasty. Continue knee conditioning exercises. Cpcx-ynb-nudufav medications as needed. Ultimate failure may occur due to mechanical wear, loosening or breakage. Follow-up is recommended to assess for the possibility of failure. She will follow-up at 1 year from surgery with repeat x-rays of the bilateral knees at that time Demario Morales MD [address], [place], [address], [place] [facility] [place] 08/25/2022 12:18:40 OBGyn Episode No OBEpisode recorded.
--- OUTSIDE RECORDS SUMMARY | 2024-04-08 19:31 | XMS_ITS | Patient Health Record ---
Author Organization [facility] [place] Address [address] [facility] [place] [address] Care Team Providers Care Flame Cutting Machine Operator Name Role Phone Priscilla FELICIANO, Stacy Douglas Primary Care Provider Un available Jose Flower Unavailable [phone] Allergies Allergen (clinical drug ingredient) Drug/Non Drug Allergy documented on EMR Reaction Allergy Type Onset Date Status Millk (uncoded) hives Allergy Acti ve Romi dizziness Drug Allergy Active Reason For Referral No Information Medications Medication SIG (Take, Route, Frequency, Duration) Notes Start Date End Date Status CeleBREX Active vitamin as directed Active Cetirizine HCl 10 MG 1 tablet Orally Onc e a day Active Work Note-Appointment . . . Pt had a scheduled appointment today for . 04/14/2022 Not-Taking Glucosamine 750 MG as directed Orally Not-Taking Halobetasol Cr & Lactic Ac Cr 0.05 & 10 % as directed Externally PRN Active Medical From: . . . Medical from work today, 04/14/22 if needed due to surgical performed procedure for 1 days 04/14/2022 Not-Taking Nabumetone 750 MG Oral for 90 Not-Taking Mycophenolate Mofetil 500 MG 2 tablets O rally Twice a day for 30 day(s) PRN Active amLODIPine Besylate 5 MG 1 tablet Orally Once a day for 30 day(s) Active predniSONE 7 MG as directed Orally QOD Not-Taking Calcium 600 MG Orally Once a day Active Ranitidine HCl 300 MG Oral for 90 Active Olmesartan Medoxomil-HCTZ 40-12.5 MG 1 tablet Orally Once a day Active hydroCHLOROthiazide 25 MG 1 tablet Orall y Once a day for 30 day(s) Not-Taking Piroxicam 20 MG 1 capsule with food Orally Once a day for 30 day(s) Not-Taking Lisinopril 10 MG 1 tablet Orally Once a day for 30 day(s) Active Cephalexin 500 MG 1 capsule Orally every 6 hrs for 5 day(s) Not-Taking Cromolyn Sodium Acti ve Loratadine 10 MG 1 tablet Orally Once a day for 30 day(s) Active Dapsone 25 MG Oral for 90 Not- Taking Naltrexone HCl 3mg Activ e Mupirocin 2 % 1 application to affected area Externally Three times a day PRN Active Immunizations Vaccine Route Administration Date Status Comme nts COVID-19 Moderna Vaccine Unknown 08/27/2020 Administere d 1st 07/30/2020 Social History Tobacco Use: Social History Observation Description Date Details (start date - stop date) Never Smoker NA - NA Tobacco Use/Smoking Question Answer Notes Are you a: nonsmoker Additional Findings: Tobacco Non-User Current no n-smoker Alcohol Screen Question Answer Notes Did you have a drink contain ing alcohol in the past year? Yes How often did you have a dri nk containing alcohol in the past year? Monthly or less (1 point) Points 1 Interpretation Negative Tobacco use other than smoking: Question Answer Notes Are you an other tobacco user? No Problems Problem Type SNOMED Code ICD Code Onset Dates Problem Status W/U Status Risk Notes Problem Plantar wart (03836345) Plantar wart (B07.0) Active confirmed Vital Signs Height 5ft 4in in 11/08/2023 Weight 170 lbs 11/08/2023 BMI 29.18 kg/m2 11/08/2023 Procedures Procedure Date Ordered Date Performed Result Body [place] e 79914 I&D ABSCESS- SIMPLE,SINGLE 11/08/2023 N/A Encounters Encounter Location Date Provider Diagnosis [facility] [place] [address] [facility] [address] [place] [address] 11/08/2023 Jose Flower Abscess of toe, left L02.612 and Ingrown nail L60.0 [facility] [place] [address] [place] [address] 02/07/2024 Jose Flower Assessments Encounter Date Diagnosis (ICD Code) Assessment Notes Treatment Notes Treatment Clinical Notes Section Notes 11/08/2023 Abscess of toe, left (ICD-10 - L02.612) Patient Educated with: WOUND CARE INSTRUCTIONS.p df (WOUND CARE INSTRUCTIONS.p df) 11/08/2023 Ingrown nail (ICD-10 - L60.0) Plan Of Treatment Pending Test Test Name Order Date 99176-Rujf Destruction, -12/10/2019 99604-Uthu Destruction, -14 03/01/2021 49945-Nikj Destruction, -07/07/2021 05255-Yxwtsjtv Plate 04/14/2022 00502-MWD 06/28/2018 25572- Debride <25 sq cm 02/04/2016 50409 I&D ABSCESS- SIMPLE,SINGLE 017 04854 I&D ABSCESS- SIMPLE,SINGLE 018 34385 I&D ABSCESS- SIMPLE,SINGLE 020 55191 I&D ABSCESS- SIMPLE,SINGLE 022 23406 I&D ABSCESS- SIMPLE,SINGLE 021 00696 I&D ABSCESS- SIMPLE,SINGLE 024 32110 I&D ABSCESS- SIMPLE,SINGLE 016 Insurance Providers Payer Name Payer Address Payer Phone Subscriber Number Group Number Insured Name Patient Relationship to Insured Coverage Start Date Coverage End Date [facility] [phone] [facility] [id number] [place] [phone] [id number] Cooper Finney Self - patient is the insured Medical (General) History Medical History History ICD Code Arthritis back, hip, knee pain high blood pressure measles chicken pox Mumps Surgical History Surgery Date(Month/Year) knee surgery - meniscus hysterectomy gall bladder cyst removal on breast, finger and wrist ORIF Right wrist Jan 2018 left knee replacement 08/2021 right knee replacement, total 2022 partial hip replacement, right 08/30/23
--- OUTSIDE RECORDS SUMMARY | 2024-04-08 19:31 | XMS_ITS ---
Author Organization [facility] [place] Address [address] [place] [address] Care Team Providers Care Electric Vehicle Electrician Name Role Phone Priscilla FELICIANO, Stacy Douglas Primary Care Provider Un available Jose Flower Unavailable [phone] REASON FOR VISIT cx 02/15/24 Encounters Encounter Location Date Provider Diagnosis [address] [address] 02/07/2024 Jose Flower Plan Of Treatment No Information Progress Notes * Leonid FINNEY:1960 (63 yo F)Acc No.[id number]:02/07/2024 Patient:?Cooper Finney :1960???Age:63 Y???Sex:Female Address:[address] [place] [address] [facility] [place], [address] * true * Date:? Generated for Binhi sandra/Wolf/eTransmitting on:?04/08/2024 07:30 PM EST
--- OUTSIDE RECORDS SUMMARY | 2024-04-08 19:31 | XMS_ITS ---
Author Organization [facility] Address [address] [facility] naomy [facility] [place] [address] Care Team Providers Care Psychiatry Teacher Name Role Phone Priscilla FELICIANO, Stacy Douglas Primary Care Provider Un available Jose Flower Unavailable [phone] Encounters Encounter Location Date Provider Diagnosis [address] [address] 12/17/2023 Jose Flower Plan Of Treatment No Information Progress Notes * Ajay FINNEYBridgerOB:1960 (63 yo F)Acc No.[id number]:12/17/2023 Progress Note Patient:Cooper BORDEN Provider:?Jose Flower DPM :1960???Age:63 Y???Sex:Female D ate:12/17/2023 Address:[address] [place] [address] [phone] Pcp:Dayan Roy Subjective: * Chief Complaints: * ??? * Medical History:? Objective: * Vitals:? Assessment: Plan: * Treatment: * Images: * The named appointment provid er may or may not be the originator of this progress note, and it is not deemed complete until electronically signed by the appointment provider. Sign off status: Pending * Provider:?Jose Flower DPM Date:?2023 Generated for Binhi sandra/Wolf/eTransmitting on:?04/08/2024 07:31 PM EST
--- OUTSIDE RECORDS SUMMARY | 2024-04-08 19:31 | XMS_ITS ---
Author Organization [facility] Address [address] [place] [address] Care Team Providers Care Shake Packer Name Role Phone Priscilla FELICIANO, Stacy Douglas Primary Care Provider Un available Jose Flower Unavailable [phone] Encounters Encounter Location Date Provider Diagnosis [facility] [address] [place] [address] 02/15/2024 Jose Flower Plan Of Treatment No Information Progress Notes * Jose FINNEYOB:1960 (63 yo F)Acc No.[id number]:02/15/2024 Progress Note Patient:Cooper BORDEN Provider:?Jose Flower DPM :1960???Age:63 Y???Sex:Female D ate:02/15/2024 Address:[address] [place] [phone] Pcp:Dayan Roy Subjective: * Chief Complaints: * [...] DPM Date:?2023 Generated for Binhi sandra/Wolf/eTransmitting on:?04/08/2024 07:30 PM EST
== END ==
PROVIDERS: PCP Internal Medicine; Visit Provider Internal Medicine
DX: M54.2 Cervicalgia (principal)

== ENCOUNTER → 2024-04-02 13:29 | Outpatient (BNV) | payer OTHER, SELFPAY | PROVIDERS: PCP Internal Medicine; Visit Provider Radiology Diagnostic Radiology | DX: M54.2 Cervicalgia (principal) | CPT/HCPCS: 72052 ==

== ENCOUNTER 2024-04-16 07:01 | Outpatient (REF) | payer OTHER, SELFPAY ==
--- OUTSIDE RECORDS SUMMARY | 2024-04-16 07:05 | XMS_ITS | Patient Health Record ---
Author Organization [facility] [place] Address [address] [place] [place] [address] Care Team Providers Care Store Warehouse Associate Name Role Phone Priscilla FELICIANO, Stacy Douglas Primary Care Provider Un available Jose Flower Unavailable [phone] Allergies Allergen (clinical drug ingredient) Drug/Non Drug [...] W/U Status Risk Notes Problem Plantar wart ([id number]) Plantar wart (B07.0) Active confirmed Vital Signs Height 5ft 4in in 11/08/2023 Weight 170 lbs 11/08/2023 BMI 29.18 kg/m2 11/08/2023 Procedures Procedure Date Ordered Date Performed Result Body Sit e 03569 I&D ABSCESS- SIMPLE,SINGLE 11/08/2023 N/A Encounters Encounter Location Date Provider Diagnosis [facility] [place] [address] [facility] [address] [place] [address] 11/08/2023 Jose Flower Abscess of toe, left L02.612 and Ingrown nail L60.0 [facility] [place] [address] [place] [address] 02/07/2024 Jose Flower Assessments Encounter Date Diagnosis (ICD Code) Assessment Notes Treatment Notes Treatment Clinical Notes Section Notes 11/08/2023 Abscess of toe, left (ICD-10 - L02.612) Patient Educated with: WOUND CARE INSTRUCTIONS.p df (WOUND CARE INSTRUCTIONS.p df) 11/08/2023 Ingrown nail (ICD-10 - L60.0) Plan Of Treatment Pending Test Test Name Order Date 86991-Svlr Destruction, -12/10/2019 02116-Axuj Destruction, -14 03/01/2021 52034-Ahrh Destruction, -07/07/2021 28702-Puogeghb Plate 04/14/2022 72148-YZC 06/28/2018 29504- Debride <25 sq cm 02/04/2016 82162 I&D ABSCESS- SIMPLE,SINGLE 017 25288 I&D ABSCESS- SIMPLE,SINGLE 018 28877 I&D ABSCESS- SIMPLE,SINGLE 020 91313 I&D ABSCESS- SIMPLE,SINGLE 022 61340 I&D ABSCESS- SIMPLE,SINGLE 021 57645 I&D ABSCESS- SIMPLE,SINGLE 024 38246 I&D ABSCESS- SIMPLE,SINGLE 016 Insurance Providers Payer Name Payer Address Payer Phone Subscriber Number Group Number Insured Name Patient Relationship to Insured Coverage Start Date Coverage End Date [facility] [phone] [facility] [id number] [place] [phone] [id number] Cooper Finney Self - patient is the [...]
--- OUTSIDE RECORDS SUMMARY | 2024-04-16 07:05 | XMS_ITS ---
Author Organization [facility] Address [address] [facility] [place] [address] Care Team Providers Care Ceo & Founder Name Role Phone Priscilla FELICIANO, Stacy Douglas Primary Care Provider Un available Jose Flower Unavailable [phone] Encounters Encounter Location Date Provider Diagnosis [address] [address] 12/17/2023 Jose Flower Plan Of Treatment No Information Progress Notes * Ajay FINNEYBridgerOB:1960 (63 yo F)Acc No.[id number]:12/17/2023 Progress Note Patient:Cooper BORDEN Provider:?Jose Flower DPM :1960???Age:63 Y???Sex:Female D ate:12/17/2023 Address:[address] [place] [address] [phone] Pcp:Dayan Roy Subjective: * Chief Complaints: * ??? * Medical History:? Objective: * Vitals:? Assessment: Plan: * Treatment: * Images: * The named appointment provid er may or may not be the originator of this progress note, and it is not deemed complete until electronically signed by the appointment provider. Sign off status: Pending * Provider:?Jose Flower DPM Date:?2023 Generated for Binhi sandra/Wolf/eTransmitting on:?04/16/2024 07:04 AM EST
--- OUTSIDE RECORDS SUMMARY | 2024-04-16 07:05 | XMS_ITS | Data Portability ---
Author Organization [place] [facility] Justin Massey [place] Address [address] [place] [address] Care Team Providers Care Medical Asst Name Role Phone ARIANNA FREEDANNA Primary Care Provider Assessment No assessment recorded. Plan of Treatment Reminders Order Date Submit Date Provider Last Modified By Organization Details Last Modified Time Details Appointments None record ed. Lab None record ed. Referral None record ed. Procedures None record ed. Surgeries None record ed. Imaging XR, knee, 3 view 023 08/26/19 23 [email or web address] 7 [facility], [address], [place], [address], 3 14:30:47 Medication Orders None record ed. [...] Time Hand Surgery completed Richard Kaminski - [facility] 08/25/2022 11:55:40 Knee Surgery completed Richard Kaminski - [facility] 08/25/2022 11:55:54 Imaging Results None recorded. Procedure Notes None recorded. Medical Equipment None Reported. Allergies Allergen ID Allergen Name Allergen Category Reaction Reaction Severity Criticality Documentation Date Start Date Code Code System Note Provider Name and Address Organization Details Recorded Time 3179 cow milk allergeni c extract food,medi cation Not available Not available Not available 08/25/2022 77353 5 RxNorm Richard Dutton null, [place] [facility] 3 11:55:05 3180 Romi medicatio n Not available Not available Not available 08/25/2022 94484 6 RxNorm Richard Dutton null, [place] [facility] 3 11:55:10 Medications Name Sig Start [...] Smoker Richard luu, [place] [facility] 08/25/2022 11:57:32 What Is Your Level Of Alcohol Consumption? Occasional [email or web address] Information not available 08/25/2022 How Many Times Per Week Do You Consume Alcohol? Less Than 1 Time Per Week [email or web address] Information not available 08/25/2022 Do You Use Any Illicit Or Recreational Drugs? No [email or web address] Information not available 08/25/2022 Do You Or Have You Ever Used Any Other Forms Of Tobacco Or Nicotine? No [email or web address] Information not available 08/25/2022 Sex: Unknown Functional Status None recorded. Mental Status None recorded. Family History Relationship Description Onset Age of this Age Resolved Age Notes LastModified by Organization Details LastModified Time Father Arthritis [email or web address] Not avai lable 08/25/2022 11:58:01 Father Family history of malignant neoplasm [email or web address] Not available 11:58:13 Father Rheumatoid arthritis [email or web address] Not available 11:58:34 Mother Arthritis [email or web address] Not avai lable 08/25/2022 11:58:01 Mother Family history of malignant neoplasm [email or web address] Not available 11:58:13 Mother Osteoarthrit is [email or web address] Not available 11:58:24 Medical History Condition Response Autoimmune disease Y Osteopenia Y Hypertension Y Gynecological HistoryNo gynecological history recorded. Obstetrics History GPAL:G 0 P 0 0 0 0 Past Encounters Encounter ID Performer Location Encounter Start Date Encounter Closed Date Diagnosis/Indication Diagnosis SNOMED-CT Code Diagnosis ICD10 Code 7344 Demario Morales MD [address] [place] [address] 08/25/2022 11:22:17 08/25/2022 12:21:17 History of right total knee replacement 5207965935 610377 Z96.651 Aftercare 941345068 Z47. 1 Health Concerns Section Related Observation LastModified by Organization Detai ls LastModified Time None Recorded Concern Status LastModified by Organization Details LastModified Time None Recorded Advance Directives Directive None Recorded Payers Encounter Date Sequence Insurance Name Policy Number Policy Young Covered Member ID Young Member ID Guarantor Name 08/25/2022 1 [facility] [id number] Cooper Finney [id number] Cooper Finney Notes Date Note Type [...] pain relief in the knee and satisfactory mormonism of function in terms of activities of [...] total knee arthroplasty. Continue knee conditioning exercises. Uknq-pjs-verfxcs medications as needed. Ultimate failure may occur due to mechanical wear, loosening or breakage. Follow-up is recommended to assess for the possibility of failure. She will follow-up at 1 year from surgery with repeat x-rays of the bilateral knees at that time Demario Morales MD [address], [place], [address], [place] [facility] 08/25/2022 12:18:40 OBGyn Episode No OBEpisode recorded.
--- OUTSIDE RECORDS SUMMARY | 2024-04-16 07:05 | XMS_ITS ---
[facility] [place] Address [address] [place] [address] Care Team Providers Care Alumina Plant Supervisor Name Role Phone Priscilla FELICIANO, Stacy Douglas Primary Care Provider Un available Jose Flower Unavailable [phone] REASON FOR VISIT cx 02/15/24 Encounters Encounter Location Date Provider Diagnosis [address] [address] 02/07/2024 Jose Flower Plan Of Treatment No Information Progress Notes * Leonid FINNEY:1960 (63 yo F)Acc No.[id number]:02/07/2024 Patient:?Cooper Fineny :1960???Age:63 Y???Sex:Female Address:[address] [place] [address] [place], [address] * true * Date:? Generated for Binhi sandra/Wolf/eTransmitting on:?04/16/2024 07:04 AM EST
--- OUTSIDE RECORDS SUMMARY | 2024-04-16 07:05 | XMS_ITS ---
Author Organization [facility] Address [address] [place] [address] Care Team Providers Care Transportation Lead Name Role Phone Priscilla FELICIANO, Stacy Douglas Primary Care Provider Un available Jose Flower Unavailable [phone] Encounters Encounter Location Date Provider Diagnosis [facility] [address] [place] [address] 02/15/2024 Jose Flower Plan Of Treatment No Information Progress Notes * Jose FINNEYOB:1960 (63 yo F)Acc No.[id number]:02/15/2024 Progress Note Patient:Cooper BORDEN Provider:?Jose Flower DPM :1960???Age:63 Y???Sex:Female D ate:02/15/2024 Address:[address] [place] [id number] Pcp:Dayan Roy Subjective: * Chief Complaints: * ??? * Medical History:? Objective: * Vitals:? Assessment: Plan: * Treatment: * Images: * The named appointment provid er may or may not be the originator of this progress note, and it is not deemed complete until electronically signed by the appointment provider. Sign off status: Pending * Provider:?Jose Folwer DPM Date:?2023 Generated for Binhi sandra/Wolf/eTransmitting on:?04/16/2024 07:04 AM EST
[2024-04-16 07:08] LABS: MANUAL DIFF FLAG NO
[2024-04-16 07:55] LABS: Basophils Percent Auto 0.3 % (0-2); Eosinophils Absolute Auto 0.4 X10*3/uL (0.0-0.4); Eosinophils Percent Auto 5.2 % (0-4); Hematocrit 38.2 % (37.0-47.0); Hemoglobin 12.7 g/dl (12.0-16.0); Imm Gran Abs Auto 0.03 X10*3/uL (0.00-0.03); Imm Gran Pct Auto 0.4 % (0.0-0.4); Lymphocytes Absolute Auto 2.5 X10*3/uL (1.2-4.9); Lymphocytes Percent Auto 32.7 % (20-40); Mean Corpuscular HGB Conc 33.2 g/dl (31.0-35.0); Mean Corpuscular Hemoglobin 31.3 pg (27.0-33.0); Mean Corpuscular Volume 94.1 fL (80.0-98.0); Mean Platelet Volume 8.9 fL (9.4-12.3); Monocytes Absolute Auto 0.6 X10*3/uL (0.1-1.2); Monocytes Percent Auto 8.2 % (2-11); Neutrophils Absolute Auto 4.1 x10*3/uL (2.0-8.3); Neutrophils Percent Auto 53.2 % (45-73); Platelet Count 273 X10*3/uL (160-400); Red Blood Count 4.06 X10*6/uL (4.20-5.50); Red Cell Distribution Width 13.6 % (11.0-16.0); White Blood Count 7.6 X10*3/uL (4.8-10.8)
[2024-04-16 14:47] LABS: Alanine Aminotransferase 29 U/L (0-31); Albumin Level 4.9 g/dL (3.5-5.0); Alkaline Phosphatase 81 U/L (39-117); Anion Gap 13 (12-20); Aspartate Amino Transferase 27 U/L (5-31); Bilirubin Total 0.4 mg/dL (0.0-1.0); Blood Urea Nitrogen 22 mg/dL (9-16); Calcium 9.4 mg/dL (8.4-10.2); Carbon Dioxide 27 mmol/L (22-29); Chloride 103 mmol/L (96-108); Estimated Glomerular Filt Rate > 60; Glucose Random 105 mg/dL (60-115); Potassium 3.5 mmol/L (3.3-5.1); Sodium 139 mmol/L (135-145); Total Protein 7.6 g/dL (6.5-8.0)
== END 2024-04-16 07:02 | disposition home or self-care (01) ==
LOC: HO.LAB 07:01
PROVIDERS: PCP Internal Medicine; Visit Provider Physician Assistant
DX: L50.8 Other urticaria (principal)
CPT/HCPCS: 36415; 80053; 85025

== ENCOUNTER 2024-05-26 12:21 | Outpatient (AMB) | payer OTHER, SELFPAY ==
[2024-05-26 12:38] VITALS: BP 128/70; PULSE 66; RESP 14; TEMP 36.7; O2SAT 100; BMI 29.5
--- NOTE | 2024-05-26 12:38 | A.OFFPC_ITS ---
Vital Signs 05/26/24 12:38 Height 5 ft 4 in Weight 172 lb BMI 29.5 BP 128/70 Blood Pressure Location Rt brachial Position Sitting Respiration 14 Pulse 66 Pulse Source Pulse Oximeter Temp 98.0 F Temp Source Oral Pulse Oximetry (%) 100 Oxygen Delivery Method Room Air Intake Visit Reasons: Annual PE Intake Note: Pt is here today for her PE: Allergies fexofenadine [From Romi] Allergy (Unknown, Verified 05/26/24 12:54) dizziness lisinopril Adverse Reaction (Verified 05/26/24 12:54) cough Medication List - Last Reconciled 05/26/24 by Stacy Wells MD acetaminophen 650 mg (2 x 325 mg) PO Q6H PRN 30 days albuterol sulfate 90 mcg/actuation 2 puffs inhalation QID PRN amlodipine 5 mg PO DAILY celecoxib 200 mg PO BID cromolyn 200 mg PO QID cyclobenzaprine 10 mg PO BEDTIME PRN dapsone 50 mg PO DAILY famotidine 20 mg PO BEDTIME fexofenadine (Allergy Relief (fexofenadine)) 60 mg PO BID meclizine 25 mg PO DAILY PRN montelukast 10 mg PO DAILY multivitamin (Daily Multi-Vitamin tablet) 1 tab PO DAILY naltrexone 3mg olmesartan-hydrochlorothiazide 40-12.5 mg 1 tab PO DAILY zoledronic bztz-qtfbpdpw-cikkb 5 mg/100 mL (Reclast) ea IV .every 6 months Tobacco use date assessed: 05/26/24 Dental Screening Dental Screen Date: 05/26/24 Did you have a dental visit in the last 12 months?: No Did you have a dental problem in the last 6 months where you did not have access to dental care?: No Was dental information given to patient?: No HPI Annual PE HPI Details 63-year-old lady with past medical histo ry significant for osteoarthritis, hypertension, hyperlipidemia, Dupuytren's disease left hand, history of right hip fracture status post right hemiarthroplasty and pemphigus vulgaris, here today for physical exam. She is up-to-date with her screening mammogram, done last year at [facility]. Has an appointment already for repeat bone density scan to be done on 06/23/[address] Lord's office . Last cervical cancer screening and pelvic exam was done in 2021 which showed atrophic vaginal mucosa. Has hives , refractory on Dapsone, Cromolyn sodium , scheduled to see a new watch manufacturing supervisor, Dr. Elisabeth PAYAN in [place] on 06/25/2024 She has osteoarthritis, managed on celecoxib followed by Dr. Lord Blood work conducted in March showed normal electrolytes, kidney, and liver function, Vitamin D levels elevated but within target. Regular eye exams with Dr. Fernandes scheduled for June 2024. [facility] Medical History (Updated 05/26/24 @ 13:28 by Stacy Wells MD) Chronic urticaria Osteopenia Positional lightheadedness Nystagmus History of closed Colles' fracture Surgical menopause Annual physical exam Mastalgia in female Mammogram normal Hyperlipidemia Allergic rhinitis Pemphigus vulgaris Osteoarthritis HTN (hypertension) Surgical History (Updated 05/26/24 @ 13:26 by Stacy Wells MD) History of bilateral knee replacement History of right hip hemiarthroplasty (~08/29/23) History of arthroplasty of right knee H/O colonoscopy S/P RAFY (total abdominal hysterectomy) Hx of cholecystectomy H/O left knee surgery H/O right wrist surgery History of bladder surgery Family History Father Lung cancer Mother Bladder cancer Paternal Grandmother Breast cancer Social History Household Members: Family Housing: House Do you presently have visiting nurse or other home services: No Alcohol intake: current Alcohol intake frequency: holidays/special occasions only Patient Tobacco Use Status: Never used Tobacco e-Cigarette/Vaping Use: Never Used Second Hand Smoke Exposure: No service: No Current occupational status: employed Current occupation: [employer] Cognitive needs: No Hearing needs: No Vision needs: Yes Female Reproductive History Menstrual Menopause type: surgical (due to fibroids) Questionnaire PHQ-9 Over the last 2 weeks, how often have you been bothered by any of the following problems? 1. Little interest or pleasure in doing things: not at all 2. Feeling down, depressed, or hopeless: not at all 3. Trouble falling or staying asleep, or sleeping too much: several days 4. Feeling tired or having little energy: not at all 5. Poor appetite or overeating: not at all 6. Feeling bad about yourself - or that you are a failure or have let yourself or your family down: not at all 7. Trouble concentrating on things, such as reading the newspaper or watching television: not at all 8. Moving or speaking so slowly that other people could have noticed. Or the opposite - being so fidgety or restless that you have been moving around a lot more than usual: not at all 9. Thoughts that you would be better off or of hurting yourself in some way: not at all Total score: 1 Depression Screening Interpretation: Negative Depression Screening Done: Yes 27581 - PHQ-9 Billing: Yes Source: Developed by Drs. Manjinder Schulz, Nadine Howard, Jose Ramon Simon and colleagues, with an educational swapna from [employer]. Thrive Questionnaire Date Thrive assessed: 05/21/24 I am a: Patient What is your living situation today?: I choose not to answer this question Within the past 12 months, did the food you bought not last and you didn't have the money to get more?: I choose not to answer this question Within the past 12 months, did you worry whether your food would run out before you got money to buy more?: I choose not to answer this question Do you have trouble paying for medicines?: No Do you have trouble getting transportation to medical appointments?: No Do you have trouble paying your heating and electricity bill?: No Do you have trouble taking care of your child, family member or friend?: No Do you have trouble with day-to-day activities such as bathing, preparing meals, shopping, managing finances, etc.?: No Are you currently unemployed and looking for a job?: No Are you interested in more education?: No Please select the resources that you would like help with: None Currently or been in a relationship where the following occur: I choose not to answer THRIVE Score: 0 AUDIT C Alcohol Use Questionnaire (AUDIT-C) 1. How often do you have a drink containing alcohol?: Monthly or less 2. How many drinks containing alcohol do you have on a typical day when you are drinking?: 1 or 2 3. How often do you have six or more drinks on one occasion?: Never Total Score: 1 JEFFERY-7 AMB Questionnaire JEFFERY-7 Date JEFFERY - 7 assessed: 05/26/24 Feeling nervous, anxious, or on edge: 0 = Not at all Not being able to stop or control worryin = Not at all Worrying too much about different things: 0 = Not at all Trouble relaxin = Not at all Being so restless that it is hard to sit still: 0 = Not at all Becoming easily annoyed or irritable: 0 = Not at all Feeling afraid as if something awful might happen: 0 = Not at all Total JEFFERY-7 score (0-4 normal; 5-9 mild; 10-14 moderate; 15-21 severe): 0 Source: Developed by Drs. Manjinder Schulz, Nadine Howard, Jose Ramon Simon and colleagues, with an educational swapna from [employer]. JEFFERY-7 Assessment Billing JEFFERY-7 Assessment Tool: JEFFERY-7 Assessment 48384 Review of Systems Const Reports no additional complaints and Denies weakness Eyes Details: Dr Fernandes ENT Reports no additional complaints Card Reports no additional complaints Resp Reports no additional complaints GI Reports no additional complaints and Reports heartburn (Controlled with fam otidine) Reports no additional complaints Musc Denies tingling Skin/Breast Reports as per HPI Neuro Reports no additional complaints, Denies focal weakness, Denies radicular pain, Denies Sensory deficit (Neuro), Denies tingling, Denies paresthesias and Denies weakness Psych Reports no additional complaints Endo Reports no additional complaints Aaron/Lymph Reports no additional complaints Aller/Immun Reports no additional complaints Physical exam (Primary Care) Vital Signs: Last Vital Signs Temp 98.0 F 05/26/24 12:38 Pulse 66 05/26/24 12:38 Resp 14 05/26/24 12:38 BP 128/70 05/26/24 12:38 Pulse Ox 100 05/26/24 12:38 Oxygen Delivery Method Room Air 05/26/24 12:38 BMI result Body Mass Index 29.5 Tobacco/Smoking Status: Tobacco use Status Tobacco use date assessed 05/26/24 05/26/24 12:43 Patient Tobacco Use Status Never used Tobacco 05/26/24 12:39 e-Cigarette/Vaping Use Never Used 05/26/24 12:39 PHQ-9: PHQ-9 Score PHQ-9: Total score 1 05/26/24 12:58 Depression Screening Interpretation: Negative Thrive Assessment: Date of Thrive Assessment Date Thrive assessed 05/21/24 05/26/24 12:39 Currently or been in a relationship where the following occur: I choose not to answer Const Orientation/consciousness: patient oriented x3 HENMT Head: Yes normocephalic Ears: TM's normal bilaterally and EAC's normal General nose exam: Normal external nose present Face and sinus: Yes face symmetric Mouth: Normal oral and palatal mucosa present, oropharynx normal and moist mucous membranes Eyes General: appearance normal, both eyes and all related structures Neck Other: - Musculoskeletal/Neck- Evaluated with range of motion maneuvers; no pain noted upon touching chin toward chest, no lymphadenopathyt, and pain only present with turning neck opposite to the affected side. Chest Breast/axilla inspection: normal inspection of the breasts Breast/axilla palpation: normal palpation of the breasts Resp Auscultation: clear to auscultation bilaterally Cardio Other: S1-S2 present regular rate and rhythm GI Palpation (GI): Soft to palpation, nontender, no guarding and no masses Auscultation: normal bowel sounds Back/Spine/Pelvis Back: No back tenderness Skin General skin exam: no rashes or lesions noted Neuro General: patient oriented x3, gait normal, moves all extremities, Normal light touch and pain sensation and no focal motor deficits Sensory Exam: No Sensory deficit (Neuro) Extrem General: Yes full ROM, Yes no joint enlargement and Yes no clubbing, cyanosis or edema Psych Appearance: grossly normal and well kempt Mental Status: mental status grossly normal Speech and movement: Normal speech and movement present Affect: normal affect Coding Level of Care Code Est Pt Prev Care 40-64y(33184) Diagnoses Annual visit for general adult medical examination with abnormal findings Z00.01 Encounter for screening for malignant neoplasm of colon Z12.11 Osteopenia M85.80 Chronic urticaria L50.8 Primary hypertension I10 Hypertension type: primary hypertension Pure hypercholesterolemia E78.00 Hyperlipidemia type: pure hypercholesterolemia Advanced directives, counseling/discussion Z71.89 Pemphigus vulgaris L10.0 Additional Codes PHQ-9 - 14023 - PHQ-9 Billing: Yes ([id number]) JEFFERY-7 Assessment Billing - JEFFERY-7 Assessment Tool: JEFFERY-7 Assessment 26357 ([id number]) Assessment & Plan Assessment & Plan (1) Annual visit for general adult medical examination with abnormal findings: Code(s): Z00.01 - Encounter for general adult medical examination with abnormal findings (2) Encounter for screening for malignant neoplasm of colon: Code(s): Z12.11 - Encounter for screening for malignant neoplasm of colon (3) Osteopenia: Comment: On Reclast for 2021, unable to tolerate risedronate due to to GI symptoms Code(s): M85.80 - Other specified disorders of bone density and structure, unspecified site Category: Medical (4) Chronic urticaria: Code(s): L50.8 - Other urticaria Category: Medical (5) HTN (hypertension): Code(s): I10 - Essential (primary) hypertension Category: Medical Qualifiers: Hypertension type: primary hypertension Qualified Code(s): I10 - Essential (primary) hypertension (6) Hyperlipidemia: Code(s): E78.5 - Hyperlipidemia, unspecified Category: Medical Qualifiers: Hyperlipidemia type: pure hypercholesterolemia Qualified Code(s): E78.00 - Pure hypercholesterolemia, unspecified (7) Advanced directives, counseling/discussion: Code(s): Z71.89 - Other specified counseling (8) Pemphigus vulgaris: Comment: f/u TERRI Code(s): L10.0 - Pemphigus vulgaris Category: Medical Plan Referral to an watch manufacturing supervisor is warranted for potential initiation of Xolair injections for chronic hives, unresponsive to dapsone and cromolyn. Continue celecoxib for osteoarthritis management due to efficacy and tolerability. Monitor pemphigus vulgaris as needed given current stability in disease acti vity. Monitor vitamin D levels to adjust supplementation dosages. Maintain vigilance in managing cholesterol and overall cardiovascular health through routine testing. Scheduled routine mammography and colonoscopy for preventive health screenings. An upcoming eye exam with Dr. Fernandes is scheduled and revisiting dental services is suggested for comprehensive care. Emphasizing lifestyle adjustments to sustain weight and joint health after previous hip and knee replacements remains a focus. Declined all recommended vaccinations Patient was informed and verbally consented to the use of an ambient scribe for clinic note documentation during this visit. Orders: Orders Lipid Panel 05/26/24 M85.80 - Other specified disorders of bone density and structure, unspecified site, Z13.220 - Encounter for screening for lipoid disorders Vitamin D 25-OH Total 05/26/24 M85.80 - Other specified disorders of bone density and structure, unspecified site, Z13.220 - Encounter for screening for lipoid disorders Referrals Gastroenterology Referral Z12.11 - Encounter for screening for malignant neoplasm of colon
--- OUTSIDE RECORDS SUMMARY | 2024-05-26 17:09 | XMS_ITS ---
Author Organization [facility] Address [address] [facility] [place] [facility] [place] [address] Care Team Providers Care Chief Controller Station Name Role Phone Priscilla FELICIANO, Stacy Douglas Primary Care Provider Un available Jose Flower Unavailable [phone] Encounters Encounter Location Date Provider Diagnosis [address] [address] 12/17/2023 Jose Flower Plan Of Treatment No Information Progress Notes * Ajay FINNEYBridgerOB:1960 (63 yo F)Acc No.[id number]:12/17/2023 Progress Note Patient:Cooper BORDEN Provider:?Jose lFower DPM :1960???Age:63 Y???Sex:Female D ate:12/17/2023 Address:[address] [place] [address] [place], [id number] Pcp:Dayan Roy Subjective: * Chief Complaints: * ??? * Medical History:? Objective: * Vitals:? Assessment: Plan: * Treatment: * Images: * The named appointment provid er may or may not be the originator of this progress note, and it is not deemed complete until electronically signed by the appointment provider. Sign off status: Pending * Provider:?Jose Flower DPM Date:?2023 Generated for Binhi sandra/oWlf/eTransmitting on:?05/26/2024 05:09 PM EST
--- OUTSIDE RECORDS SUMMARY | 2024-05-26 17:09 | XMS_ITS ---
Author Organization [facility] Address [address] [place] [address] Care Team Providers Care Junior Systems Analyst Name Role Phone Priscilla FELICIANO, Stacy Douglas Primary Care Provider Un available Jose Flower Unavailable [phone] Encounters Encounter Location Date Provider Diagnosis [facility] [address] [place] [address] 02/15/2024 Jose Flower Plan Of Treatment No Information Progress Notes * Jose FINNEYOB:1960 (63 yo F)Acc No.[id number]:02/15/2024 Progress Note Patient:Cooper BORDEN Provider:?Jose Flower DPM :1960???Age:63 Y???Sex:Female D ate:02/15/2024 Address:[address] [place] [address] Pcp:Dayan Roy Subjective: * Chief Complaints: * ??? * Medical History:? Objective: * Vitals:? Assessment: Plan: * Treatment: * Images: * The named appointment provid er may or may not be the originator of this progress note, and it is not deemed complete until electronically signed by the appointment provider. Sign off status: Pending * Provider:?Jose Flower DPM Date:?2023 Generated for Binhi sandra/Wolf/eTransmitting on:?05/26/2024 05:09 PM EST
--- OUTSIDE RECORDS SUMMARY | 2024-05-26 17:09 | XMS_ITS | Data Portability ---
Author Organization [place] [facility] Justin Massey [place] [place] Address [address] [place] [address] Care Team Providers Care Electronic Console Display Operator Name Role Phone ARIANNA FREEDANNA Primary Care Provider [phone] Assessment No assessment recorded. Plan of Treatment Reminders Order Date Submit Date Provider Last Modified By Organization Details Last Modified Time Details Appointments None record ed. Lab None record ed. Referral None record ed. Procedures None record ed. Surgeries None record ed. Imaging XR, knee, 3 view 023 08/26/19 23 [email or web address] 7 [facility], [address], [place], [address], 3 14:30:47 Medication Orders None record ed. [...] Time Hand Surgery completed Richard Kaminski - [facility] [place] 08/25/2022 11:55:40 Knee Surgery completed Richard Kaminski - [facility] [place] 08/25/2022 11:55:54 Imaging Results None recorded. Procedure Notes None recorded. Medical Equipment None Reported. Allergies Allergen ID Allergen Name Allergen Category Reaction Reaction Severity Criticality Documentation Date Start Date Code Code System Note Provider Name and Address Organization Details Recorded Time 3179 cow milk allergeni c extract food,medi cation Not available Not available Not available 08/25/2022 36844 5 RxNorm Richard Dutton null, [place] [facility] [place] 3 11:55:05 3180 Romi medicatio n Not available Not available Not available 08/25/2022 06595 6 RxNorm Richard Dutton null, [place] [facility] [place] 3 11:55:10 Medications Name Sig Start [...] Smoker Richard luu, [place] [facility] [place] 08/25/2022 11:57:32 What Is Your Level Of Alcohol Consumption? Occasional [email or web address] Information not available 08/25/2022 How Many Times Per Week Do You Consume Alcohol? Less Than 1 Time Per Week [email or web address] Information not available 08/25/2022 Do You Use Any Illicit Or Recreational Drugs? No [email or web address] Information not available 08/25/2022 Do You Or Have You Ever Used Any Other Forms Of Tobacco Or Nicotine? No [email or web address] Information not available 08/25/2022 Sex: Unknown Functional Status None recorded. Mental Status None recorded. Family History Relationship Description Onset Age of this Age Resolved Age Notes LastModified by Organization Details LastModified Time Father Arthritis [email or web address] Not avai lable 08/25/2022 11:58:01 Father Family history of malignant neoplasm [email or web address] Not available 11:58:13 Father Rheumatoid arthritis [email or web address] Not available 11:58:34 Mother Arthritis [email or web address] Not avai lable 08/25/2022 11:58:01 Mother Family history of malignant neoplasm [email or web address] Not available 11:58:13 Mother Osteoarthrit is [email or web address] Not available 11:58:24 Medical History Condition Response Autoimmune disease Y Osteopenia Y Hypertension Y Gynecological HistoryNo gynecological history recorded. Obstetrics History GPAL:G 0 P 0 0 0 0 Past Encounters Encounter ID Performer Location Encounter Start Date Encounter Closed Date Diagnosis/Indication Diagnosis SNOMED-CT Code Diagnosis ICD10 Code Diagnosis Note [id number] Demario Morales MD [address] [place] [address] 08/25/2022 11:22:17 08/25/2022 12:21:17 History of right total knee replacement [id number] 873123 Z96.651 Aftercare 133481972 Z47. 1 Health Concerns Section Related Observation LastModified by Organization Detai ls LastModified Time None Recorded Concern Status LastModified by Organization Details LastModified Time None Recorded Advance Directives Directive None Recorded Payers Encounter Date Sequence Insurance Name Policy Number Policy Young Covered Member ID Young Member ID Guarantor Name 08/25/2022 1 [facility] [id number] Cooper Finney [id number] Cooper Finney Notes Date Note Type [...] functions well. She is very happy overall, ?Patient reports good pain relief in the knee and satisfactory latter-day of function in terms of activities of [...] total knee arthroplasty. Continue knee conditioning exercises. Lody-ksz-djnlbth medications as needed. Ultimate failure may occur due to mechanical wear, loosening or breakage. Follow-up is recommended to assess for the possibility of failure. She will follow-up at 1 year from surgery with repeat x-rays of the bilateral knees at that time Demario Morales MD [address], [place], [address], [place] [facility] [place] 08/25/2022 12:18:40 OBGyn Episode No OBEpisode recorded.
--- OUTSIDE RECORDS SUMMARY | 2024-05-26 17:09 | XMS_ITS | Patient Health Record ---
Author Organization [facility] Nancy [facility] [place] Address [address] [place] [address] Care Team Providers Care First Dyer Name Role Phone Priscilla FELICIANO, Stacy Douglas Primary Care Provider Un available Jose Flower Unavailable [phone] Allergies Allergen (clinical drug ingredient) Drug/Non Drug [...] W/U Status Risk Notes Problem Plantar wart (32082569) Plantar wart (B07.0) Active confirmed Vital Signs Height 5ft 4in in 11/08/2023 Weight 170 lbs 11/08/2023 BMI 29.18 kg/m2 11/08/2023 Procedures Procedure Date Ordered Date Performed [place] e [address] I&D ABSCESS- SIMPLE,SINGLE 11/08/2023 N/A Encounters Encounter Location Date Provider Diagnosis [facility] [place] [address] [facility] [address] [place] [address] 11/08/2023 Jose Flower Abscess of toe, left L02.612 and Ingrown nail L60.0 [facility] [place] [address] [place] [address] 02/07/2024 Jose Flower Assessments Encounter Date Diagnosis (ICD Code) Assessment Notes Treatment Notes Treatment Clinical Notes Section Notes 11/08/2023 Abscess of toe, left (ICD-10 - L02.612) Patient Educated with: WOUND CARE INSTRUCTIONS.p df (WOUND CARE INSTRUCTIONS.p df) 11/08/2023 Ingrown nail (ICD-10 - L60.0) Plan Of Treatment Pending Test Test Name Order Date 26114-Uzkn Destruction, -12/10/2019 14697-Rvbr Destruction, -14 03/01/2021 15666-Hmwp Destruction, -07/07/2021 83750-Osyqxzue Plate 04/14/2022 08036-IFN 06/28/2018 26735- Debride <25 sq cm 02/04/2016 95318 I&D ABSCESS- SIMPLE,SINGLE 017 13722 I&D ABSCESS- SIMPLE,SINGLE 018 09941 I&D ABSCESS- SIMPLE,SINGLE 020 29318 I&D ABSCESS- SIMPLE,SINGLE 022 38294 I&D ABSCESS- SIMPLE,SINGLE 021 55093 I&D ABSCESS- SIMPLE,SINGLE 024 42663 I&D ABSCESS- SIMPLE,SINGLE 016 Insurance Providers Payer Name Payer Address Payer Phone Subscriber Number Group Number Insured Name Patient Relationship to Insured Coverage Start Date Coverage End Date [facility] re-[id number] 0 [facility] [id number] [place] [address] [id number] Cooper Finney Self - patient is the [...]
--- OUTSIDE RECORDS SUMMARY | 2024-05-26 17:10 | XMS_ITS ---
[facility] Address [address] [place] [address] Care Team Providers Care Shrimping Boat Captain Name Role Phone Priscilla FELICIANO, Stacy Douglas Primary Care Provider Un available Jose Flower Unavailable [phone] REASON FOR VISIT cx 02/15/24 Encounters Encounter Location Date Provider Diagnosis [address] [address] 02/07/2024 Jose Flower Plan Of Treatment No Information Progress Notes * Leonid FINNEY:1960 (63 yo F)Acc No.[id number]:02/07/2024 Patient:?Cooper Finney :1960???Age:63 Y???Sex:Female Address:[address] [place] [address] [place], [address] * true * Date:? Generated for Ludivina flores/Wolf/eTransmitting on:?05/26/2024 05:10 PM EST
== END 2024-05-26 13:27 | disposition home or self-care (01) ==
PROVIDERS: PCP Internal Medicine; Visit Provider Internal Medicine
DX: Z00.00 Encounter for general adult medical examination without abnormal findings (principal); L10.0 Pemphigus vulgaris; Z12.11 Encounter for screening for malignant neoplasm of colon; M85.80 Other specified disorders of bone density and structure, unspecified site; L50.8 Other urticaria; I10 Essential (primary) hypertension; E78.00 Pure hypercholesterolemia, unspecified

== ENCOUNTER → 2024-05-26 12:21 | Outpatient (BNVA) | payer OTHER, SELFPAY | PROVIDERS: PCP Internal Medicine; Visit Provider Internal Medicine | DX: Z00.01 Encounter for general adult medical examination with abnormal findings (principal); M85.80 Other specified disorders of bone density and structure, unspecified site; L50.8 Other urticaria; I10 Essential (primary) hypertension; E78.00 Pure hypercholesterolemia, unspecified; L10.0 Pemphigus vulgaris; Z71.89 Other specified counseling | CPT/HCPCS: 96127 ==

== ENCOUNTER 2024-12-09 09:51 | Outpatient (AMB) | payer OTHER, SELFPAY ==
[2024-12-09 09:56] VITALS: BP 134/82; PULSE 83; TEMP 36.7; O2SAT 96; BMI 30.6
--- NOTE | 2024-12-09 09:56 | AM.OFFWIN_ITS ---
Intake Vital Signs 12/09/24 09:56 Height 5 ft 4 in Weight 178 lb BMI 30.6 BP 134/82 Blood Pressure Location Lt brachial Position Sitting Pulse 83 Pulse Source Pulse Oximeter Temp 98.1 F Temp Source Oral Pulse Oximetry (%) 96 Oxygen Delivery Method Room Air Intake Visit Reasons: EP-cough, wheezing Intake Note: presents with non productive coughing and wheezing Patient Tobacco Use Status: Never used Tobacco Allergies fexofenadine (From Romi) Allergy (Unknown, Verified 12/09/24 10:03) dizziness lisinopril Adverse Reaction (Verified 12/09/24 10:03) cough Do you need a note to return to daycare/school/sports/work: No HPI HPI Comments History of Present Illness Details History - The patient is a 64-year-old female pr esenting with a persistent cough and wheezing. - The cough has been present for approxi mately three to four weeks and is described as dry. - The patient denies any history of asth ma and reports no fever or congestion accompanying the cough. - She has been using NyQuil at night to aid sleep but has not used any other medications for the cough. - The patient discontinued lisinopril ne esdras a year ago, which is not considered a contributing factor to the current symptoms. - She denies any sore throat, maintains a good appetite, and is not a smoker. Physical Exam General: Cooperative, healthy appearing, comfortable and no acute distress Orientation/consciousness: Patient oriented x3 Limitations: No limitations Head: Normal to inspection Ears: Hearing grossly normal bilaterally, external ears normal and TM's normal bilaterally Nose: Normal external nose present, normal nares present, and no nasal discharge present. Face and sinus: Sinuses nontender to palpation. Mouth: Normal oral and palatal mucosa present and moist mucous membranes noted. Throat: Tonsils normal. Uvula is midline. Posterior oropharynx with erythema and no exudates. Eyes: Appearance normal, both eyes and all related structures Neck: Normal visual inspection, full ROM. No lymphadenopathy noted. Respiratory: Clear to auscultation bilaterally. Normal respiratory effort, able to speak in complete sentences. No respiratory distress, not tachypneic, no tripod positioning and no use of accessory muscles. Cardiovascular: Regular rate and rhythm. Normal S1 and S2 Skin: No rashes or lesions noted Patient was informed and verbally consented to the use of an ambient scribe for clinic note documentation during this visit [facility] Medical History (Updated 05/26/24 @ 13:28 by Stacy Wells MD) Chronic urticaria Osteopenia Positional lightheadedness Nystagmus History of closed Colles' fracture Surgical menopause Annual physical exam Mastalgia in female Mammogram normal Hyperlipidemia Allergic rhinitis Pemphigus vulgaris Osteoarthritis HTN (hypertension) Surgical History (Updated 05/26/24 @ 13:26 by Stacy Wells MD) History of bilateral knee replacement History of right hip hemiarthroplasty (~08/29/23) History of arthroplasty of right knee H/O colonoscopy S/P RAFY (total abdominal hysterectomy) Hx of cholecystectomy H/O left knee surgery H/O right wrist surgery History of bladder surgery Family History Father Lung cancer Mother Bladder cancer Paternal Grandmother Breast cancer Social History Household Members: Family Housing: House Do you presently have visiting nurse or other home services: No Alcohol intake: current Alcohol intake frequency: holidays/special occasions only Patient Tobacco Use Status: Never used Tobacco e-Cigarette/Vaping Use: Never Used Second Hand Smoke Exposure: No service: No Current occupational status: employed Current occupation: [employer] Cognitive needs: No Hearing needs: No Vision needs: Yes Review of Systems Const All systems reviewed & are unremarkable except as noted in HPI and below Physical Exam Vital Signs: Last Vital Signs Temp 98.1 F 12/09/24 09:56 Pulse 83 12/09/24 09:56 BP 134/82 12/09/24 09:56 Pulse Ox 96 12/09/24 09:56 Oxygen Delivery Method Room Air 12/09/24 09:56 BMI result Body Mass Index 30.6 Assessment & Plan Assessment & Plan (1) Cough: Code(s): R05.9 - Cough, unspecified Qualifiers: Cough type: acute Qualified Code(s): R05.1 - Acute cough Plan Most likely URI vs bronchitis vs RAD vs covid vs flu vs RSV Plan - diet as tolerated - tylenol or motrin as needed - albuterol as needed - z-hailey as directed - tessalon perles as needed for cough - follow up with PCP Medications: New azithromycin For 250 mg dose pack: take 500 mg today (day 1), then 250 mg for 4 days (days 2-5) PO 6 tabs 0RF albuterol sulfate 90 mcg/actuation 2 puffs inhalation Q6H PRN 8.5 grams 0RF shortness of breath or wheezing or cough benzonatate 100 mg PO bid-tid PRN 21 caps 0RF Cough 7 days Coding Level of Care Code Est Pt Level 3 (28191) Diagnoses Acute cough R05.1 Cough type: acute
--- OUTSIDE RECORDS SUMMARY | 2024-12-09 10:37 | XMS_ITS | Encounter Summary ---
Author Organization [facility] Address [address] [place] [address] Phone Care Team Providers Care Sanitation Associate Name Role Phone Chris Desai MD Primary Care Provider [phone] Encounter Details Date Type Department Care Team (Late st Contact Info) Description 12/24/2018 Procedure Pass [facility] [address] [place] [address] Social History Tobacco Use Types Packs/Day Years Used Date Smoking Tobacco: Never Assessed Comments Unknown Sex and Gender Information Value Date Recorded Sex Assigned at Not on file Legal Sex Female 10:34 PM EDT Gender Identity Not on file Sexual Orientation Not on file documented as of this encounter Plan of Treatment Not on file documented as of this encounter Visit Diagnoses Not on filedocumented in this encounter Care Teams Sanitation Associate Relationship Specialty Start Date End Date Chris Desai MD [address] [place] [address] PCP - General Internal Medicine 09/27/18 documented as of this encounter Additional Source Comments The information contained in this document represents components of the legal health record. It is not the complete legal health record.[facility]
--- OUTSIDE RECORDS SUMMARY | 2024-12-09 10:37 | XMS_ITS | Clinical Summary ---
Author Organization [facility] Address [address] [place] [address] Care Team Providers Care Veterinarian Small Animal Name Role Phone Kavya Red MD Primary Care Provider [phone] Allergies Active Allergy Reactions Criticality Noted Date Comments Fexofenadine-Pseudoephed Er Other (See Comments) 08/16/2021 dizziness Fexofenadine Medium 12/24/2018 dizziness Milk Hives 06/14/2021 GI upset Medications Medication Sig Dispensed Refills Start Date End Date Status amLODIPine (NORVASC) tablet 5 mg Take 1 tablet (5 mg total) by mouth daily. 0 04/04/2021 Active lisinopril-hydroCHLOR Othiazide (PRINZIDE,ZESTORETIC) tablet 20-25 mg Take 1 tablet by mouth daily. 0 04/05/2021 Active montelukast (SINGULAIR) 10 MG tablet 0 03/30/2021 Active predniSONE (DELTASONE) 5 mg tablet Take 1 tablet (5 mg total) by mouth every other day. 0 Active Multiple Vitamin (MULTIVITAMIN ADULT PO) Take by mouth. 0 Active BL EVENING PRIMROSE OIL PO Take by mouth. 0 Active Probiotic Product (Probiotic-10) CHEW Chew by mouth. 0 A ctive vitamin D3 (cholecalciferol) 25 MCG (1000 UT) tablet Take 1 tablet (25 mcg total) by mouth daily. 0 Active oxyCODONE (ROXICODONE) 5 MG immediate release tablet Take 1-2 tablets (5-10 mg total) by mouth every 4 (four) hours as needed for pain. 40 tablet 0 04/28/2022 Active Active Problems No known active problems Family History Medical History Relation Name Comments Arthritis Brother Arthritis Father Cancer Father Diabetes Father Hypertension Father Rheumatologic disease Father Arthritis Mother Cancer Mother Hypertension Mother Arthritis Sister Hypertension Sister Relation Name Status Comments Brother Father Mother Sister Social History Tobacco Use Types Packs/Day Years Used Date Smoking Tobacco: Never Smokeless Tobacco: Never Tobacco Cessation:Counseling Given: Not Answered Alcohol Use Standard Drinks/Week Comments Yes 1 (1 standard drink = 0.6 oz pur e alcohol) Sex and Gender Information Value Date Recorded Sex Assigned at Not on file Gender Identity Not on file Sexual Orientation Not on file Job Start Date Occupation Industry Not on file Not on file Not on file Last Filed Vital Signs Vital Sign Reading Time Taken Comments Blood Pressure 128/79 04/11/2022 11:16 AM EST Pulse 79 04/11/2022 11:16 AM EST Temperature 36.5 C (97.7 F) 04/11/2022 11:16 AM EST Respiratory Rate 18 04/11/2022 11:16 AM EST Oxygen Saturation 98% 04/11/2022 11:16 AM EST Inhaled Oxygen Concentration - - Weight 78 kg (172 lb) 04/11/2022 11:16 AM EST Height 161.5 cm (5' 3.58 ) 04/11/2022 11:[address] Body Mass Index 29.91 04/11/2022 11:16 AM EST Plan of Treatment Health Maintenance Due Date Last Done Comments Hepatitis C Screening 1960 COVID-19 Vaccine (#1) 1960 Depression Screening 1974 BMI Counseling 1980 Preventative Health Evaluation 1980 Cervical Cancer Screening (Pap Smear) 07/01/1983 DTap / Tdap / Td (1 - Tdap) 11/04/2004 11/03/2004, 0 11/03/2004 Colon Cancer Screening (Colonoscopy) 07/01/2007 Breast Cancer Screening (Mammogram) 2012 Shingrix-Zoster Vaccine (1 of 2) 2012 Influenza Vaccine (#1) 2024 7, 05/07/2015, 02/22/2013, Additional history exists RSV Adult > 60+ Yrs or (1 - 1-dose 75+ series) 2037 Pneumococcal Vaccine Aged Out 03/03/2012, 03/02/20 06 No longer eligible based on patient's age to complete this topic Hepatitis B Vaccines Aged Out No long er eligible based on patient's age to complete this topic RSV Ped < 20 months Aged Out No longe r eligible based on patient's age to complete this topic Care Teams Veterinarian Small Animal Relationship Specialty Start Date End Date Kavya Red MD [address] [place] [address] PCP - General Production Department Supervisor 08/05/20
--- OUTSIDE RECORDS SUMMARY | 2024-12-09 10:37 | XMS_ITS ---
Author Name [facility] Organization Unknown Encounters Encounter Type Encounter Reason Primary Diagnosis Location Date Ambulatory [facility] 06/19/2023 Ambulatory [facility] 03/22/2023 Ambulatory [facility] 02[facility]15/2023 Ambulatory [facility] 01/11/2023 Ambulatory [facility] 11/28/2022 Ambulatory [facility] 11/17/2022 Ambulatory [facility] 10/13/2022 Ambulatory [facility] 09/08/2022 Ambulatory [facility] 09/08/2022 Ambulatory [facility] 08/25/2022 Ambulatory [facility] 08/18/2022 [facility]ulatory [facility] 08/18/2022
--- OUTSIDE RECORDS SUMMARY | 2024-12-09 10:37 | XMS_ITS | Patient Health Record ---
Author Organization [facility] Nancy aure [place] Address [address] [place] [address] Care Team Providers Care Knot Tier Name Role Phone Priscilla FELICIANO, Stacy Douglas Primary Care Provider Un available Jose Flower Unavailable [phone] Allergies Allergen (clinical drug ingredient) Drug/Non Drug [...] . . Pt had a scheduled appointment today; Duration: . 04/14/2022 Not-Taking Glucosamine 750 MG as directed Orally Not-Taking Halobetasol Cr & Lactic Ac Cr 0.05 & 10 % as directed Externally PRN Active Medical From: . . . Medical from work today, 04/14/22 if needed due to surgical performed procedure; Duration: 1 days 04/14/2022 Not-Taking Nabumetone 750 MG Oral; Duration: 90 Not-Taking Mycophenolate Mofetil 500 MG 2 tablets O rally Twice a day; Duration: 30 day(s) PRN Active amLODIPine Besylate 5 MG 1 tablet Orally Once a day; Duration: 30 day(s) Active predniSONE 7 MG as directed Orally QOD Not-Taking Calcium 600 MG Orally Once a day Active Ranitidine HCl 300 MG Oral; Duration: 90 Active Olmesartan Medoxomil-HCTZ 40-12.5 MG 1 tablet Orally Once a day Active hydroCHLOROthiazide 25 MG 1 tablet Orall y Once a day; Duration: 30 day(s) Not-Taking Piroxicam 20 MG 1 capsule with food Orally Once a day; Duration: 30 day(s) Not-Taking Lisinopril 10 MG 1 tablet Orally Once a day; Duration: 30 day(s) Active Cephalexin 500 MG 1 capsule Orally every 6 hrs; Duration: 5 day(s) Not-Taking Cromolyn Sodium Acti ve Loratadine 10 MG 1 tablet Orally Once a day; Duration: 30 day(s) Active Dapsone 25 MG Oral; Duration: 90 Not-Taking Naltrexone HCl 3mg Activ e Mupirocin 2 [...] W/U Status Risk Notes Problem Plantar wart (08697011) Plantar wart (B07.0) Active confirmed Encounters Encounter Location Date Provider Diagnosis [facility] [place] [address] [place] [address] 02/07/2024 Jose Flower Plan Of Treatment Pending Test Test Name Order Date 36180-Qwjf Destruction, 05-1312/10/2019 92367-Jyqs Destruction, 05-1303/01/2021 75379-Wqwn Destruction, 05-1307/07/2021 40508-Iynibxna Plate 04/14/2022 34230-QIM 06/28/2018 42405- Debride <25 sq cm 02/04/2016 48823 I&D ABSCESS- SIMPLE,SINGLE 017 09276 I&D ABSCESS- SIMPLE,SINGLE 018 52689 I&D ABSCESS- SIMPLE,SINGLE 020 98701 I&D ABSCESS- SIMPLE,SINGLE 022 71885 I&D ABSCESS- SIMPLE,SINGLE 021 17347 I&D ABSCESS- SIMPLE,SINGLE 024 11659 I&D ABSCESS- SIMPLE,SINGLE 016 Next Appt Details Provider Name:Jose Flower , 03/23/2025 09:45:00 AM, [address] [facility] [address], [place], [address], Insurance Providers Payer Name Payer Address Payer Phone Subscriber Number Group Number Insured Name Patient Relationship to Insured Coverage Start Date Coverage End Date [facility] [id number] [address] [place] [address] [id number] Cooper Finney Self - patient is the [...]
== END 2024-12-09 10:22 | disposition home or self-care (01) ==
PROVIDERS: PCP Internal Medicine; Visit Provider Physician Assistant Medical
DX: R05.1 Acute cough (principal)

== ENCOUNTER 2024-12-20 10:26 | Outpatient (AMB) | payer OTHER, SELFPAY ==
--- OUTSIDE RECORDS SUMMARY | 2024-12-20 10:28 | XMS_ITS | Encounter Summary ---
Author Organization [facility] Address [address] [place] [address] Phone Care Team Providers Care Jumpbasting Collar Baster Name Role Phone Chris Desai MD Primary Care Provider [phone] Encounter Details Date Type Department Care Team (Late st Contact Info) Description 12/24/2018 Procedure Pass [facility] [address] [place] [address] Social History Tobacco Use Types Packs/Day Years [...] on filedocumented in this encounter Care Teams Jumpbasting Collar Baster Relationship Specialty Start Date End Date Chris Desai MD [address] [place] [address] PCP - General Internal Medicine 09/27/18 documented as of this encounter Additional Source Comments The information contained in this document represents components of the legal health record. It is not the complete legal health record.[facility]
--- OUTSIDE RECORDS SUMMARY | 2024-12-20 10:28 | XMS_ITS | Patient Health Record ---
Author Organization [facility] Nancy aure [place] Address [address] [place] [address] Care Team Providers Care Chicken Picker Name Role Phone Priscilla FELICIANO, Stacy Douglas Primary Care Provider Un available Jose Flower Unavailable [phone] Allergies Allergen (clinical drug ingredient) Drug/Non Drug [...] W/U Status Risk Notes Problem Plantar wart (B07.0) Active confirmed Encounters Encounter Location Date Provider Diagnosis [facility] [address] [address] 02/07/2024 Jose Flower Plan Of Treatment Pending Test Test Name Order Date [id number]-Eqil Destruction, -12/10/2019 84919-Npgk Destruction, 05-1303/01/2021 02084-Geor Destruction, 05-1307/07/2021 58878-Jeyejjlq Plate 04/14/2022 47246-RLS 06/28/2018 67900- Debride <25 sq cm 02/04/2016 33180 I&D ABSCESS- SIMPLE,SINGLE 017 40327 I&D ABSCESS- SIMPLE,SINGLE 018 71581 I&D ABSCESS- SIMPLE,SINGLE 020 85907 I&D ABSCESS- SIMPLE,SINGLE 022 56580 I&D ABSCESS- SIMPLE,SINGLE 021 73118 I&D ABSCESS- SIMPLE,SINGLE 024 98079 I&D ABSCESS- SIMPLE,SINGLE 016 Next Appt Details Provider Name:Jose Flower , 03/23/2025 09:45:00 AM, [address] [facility], [facility] [address], [place], [address], Insurance Providers Payer Name Payer Address Payer Phone Subscriber Number Group Number Insured Name Patient Relationship to Insured Coverage Start Date Coverage End Date [facility] [id number] [address] [place] [phone] [id number] Cooper Finney Self - patient is the [...]
--- OUTSIDE RECORDS SUMMARY | 2024-12-20 10:28 | XMS_ITS | Clinical Summary ---
Author Organization [facility] Address [address] [place] [address] Care Team Providers Care Service Support Representative Name Role Phone Kavya Red MD Primary Care Provider [phone] Allergies Active Allergy Reactions Criticality Noted Date [...] age to complete this topic Care Teams Service Support Representative Relationship Specialty Start Date End Date Kavya Red MD [address] [place] [address] PCP - General Order Analyst 08/05/20
--- NOTE | 2024-12-20 10:50 | MHC.OFFWIV ---
Intake Vital Signs 12/20/24 10:51 Height 5 ft 4 in Weight 178 lb BMI 30.6 BP 118/78 Blood Pressure Location Lt brachial Position Sitting Pulse 72 Pulse Source Pulse Oximeter Temp 98.1 F Temp Source Oral Pulse Oximetry (%) 100 Oxygen Delivery Method Room Air Intake Visit Reasons: EP-cough Patient Tobacco Use Status: Never used Tobacco Allergies fexofenadine (From Romi) Allergy (Unknown, Verified 12/20/24 10:51) dizziness lisinopril Adverse Reaction (Verified 12/20/24 10:51) cough Do you need a note to return to daycare/school/sports/work: No HPI EP-cough HPI Details Patient is a 64-year-old female with about a month of persistent mostly dry cough, sore throat with coughing Reports she was started on antibiotic when symptoms began, and diagnosed with acute bronchitis, however she never developed chest congestion, purulent phlegm production, shortness of breath, chest pain Negative for flu COVID RSV Also denies nausea vomiting diarrhea, fever chills, weakness or dizziness, myalgias or malaise, ear pain, loss of sense of taste or smell, headache, or other significant associated symptoms PFSH Medical History Chronic urticaria Osteopenia Positional lightheadedness Nystagmus History of closed Colles' fracture Surgical menopause Annual physical exam Mastalgia in female Mammogram normal Hyperlipidemia Allergic rhinitis Pemphigus vulgaris Osteoarthritis HTN (hypertension) Surgical History History of bilateral knee replacement History of right hip hemiarthroplasty (~08/29/23) History of arthroplasty of right knee H/O colonoscopy S/P RAFY (total abdominal hysterectomy) Hx of cholecystectomy H/O left knee surgery H/O right wrist surgery History of bladder surgery Family History Father Lung cancer Mother Bladder cancer Paternal Grandmother Breast cancer Social History Household Members: Family Housing: House Do you presently have visiting nurse or other home services: No Alcohol intake: current Alcohol intake frequency: holidays/special occasions only Patient Tobacco Use Status: Never used Tobacco e-Cigarette/Vaping Use: Never Used Second Hand Smoke Exposure: No service: No Current occupational status: employed Current occupation: [employer] Cognitive needs: No Hearing needs: No Vision needs: Yes Review of Systems Const All systems reviewed & are unremarkable except as noted in HPI and below Physical Exam Vital Signs: Last Vital Signs Temp 98.1 F 12/20/24 10:51 Pulse 72 12/20/24 10:51 BP 118/78 12/20/24 10:51 Pulse Ox 100 12/20/24 10:51 Oxygen Delivery Method Room Air 12/20/24 10:51 BMI result Body Mass Index 30.6 Const General: cooperative, healthy appearing, comfortable, no acute distress, Physically active and well groomed; No anxious, diaphoretic, intoxicated appearing, poor hygiene or tired appearing Nutritional Appearance: average body habitus Orientation/consciousness: patient oriented x3 Limitations: no limitations HEENT Head: Yes normal to inspection, Yes normocephalic and Yes atraumatic Ears: hearing grossly normal bilaterally, external ears normal and TM abnormal (Milky effusions bilaterally) wth effusion, erythematous (Right injected stripe vertically midline of right TM), with fluid behind the TM and with loss of landmarks; not obstructed by cerumen and not perforated General nose exam: Normal external nose present, Normal nares present, No nasal polyps present, Normal nasal mucous membranes and turbinates present, Normal septum present, No nasal discharge present and no nasal discharge noted Face and sinus: Yes normal facial exam, Yes sinuses nontender and Yes face symmetric Mouth: Normal oral and palatal mucosa present, lip normal and tongue normal Throat: No peritonsillar mass, No uvular edema and No cobblestoning Eyes General: appearance normal, both eyes and all related structures Neck Neck: Yes normal visual inspection, Yes trachea midline, Yes supple, No anterior neck swelling and Yes lymphadenopathy (Mild submandibular and scattered anterior cervical) Chest Chest palpation & inspection: normal palpation of entire chest wall Resp Effort & Inspection: normal respiratory effort, able to speak in complete sentences, no audible wheezes, Actively coughing (Dry frequent), no grunting, not labored, no nasal flaring, no retractions and symmetric chest movement Auscultation: clear to auscultation bilaterally, no crackles, no rales, no rhonchi, no wheezes, lung sounds not diminished and No rub present Cardio Palpation: normal PMI Rate: regular rate Rhythm: regular rhythm Heart sounds: S1 normal heart sound present and S2 normal heart sound present Skin Other: Good color, warm and dry Neuro General: patient oriented x3 Psych Appearance: grossly normal Mental Status: mental status grossly normal Speech and movement: Normal speech and movement present Affect: normal affect Attitude: cooperative Thought process: Normal thought process present Insight: Good insight present (Psych) Judgement: Good judgement present (Psych) Assessment & Plan Assessment & Plan (1) Otitis media: Code(s): H66.90 - Otitis media, unspecified, unspecified ear Qualifiers: Otitis media type: suppurative Chronicity: acute Laterality: bilateral Recurrence: non-recurrent Spontaneous tympanic membrane rupture: without spontaneous rupture Qualified Code(s): H66.003 - Acute suppurative otitis media without spontaneous rupture of ear drum, bilateral Plan: Patient with right otitis media, and bilateral likely subacute serous otitis, unknown if initially from viral syndrome or allergies Chronic at this point, so chest x-ray done to rule out associated pulmonary cause, however lung sounds are clear to auscultation and no associated lower respiratory tract symptoms or signs on exam- unremarkable for acute changes Advised she treat with short prednisone course, and then she can transition to Flonase with gxnx-fwc-oedbfaw anti-inflammatory Also we will start on Augmentin for otitis media, as right TM starting to look injected, and due to length of time of symptoms Follow up if symptoms persist or worsen, and might need referral to ENT Advised to go to the emergency department with any worrisome symptoms Orders: Orders XR chest 2V 12/20/24 R05.9 - Cough, unspecified Medications: New amoxicillin-pot clavulanate 875-125 mg 1 tab PO BID 14 tabs 0RF prednisone 40 mg (2 x 20 mg) PO DAILY 10 tabs 0RF 5 days Coding Level of Care Code Est Pt Level 4 (22860) Diagnoses Non-recurrent acute suppurative otitis media of both ears without spontaneous rupture of tympanic membranes H66.003 Otitis media type: suppurative Chronicity: acute Laterality: bilateral Recurrence: non-recurrent Spontaneous tympanic membrane rupture: without spontaneous rupture
[2024-12-20 10:51] VITALS: BP 118/78; PULSE 72; TEMP 36.7; O2SAT 100; BMI 30.6
== END 2024-12-20 12:01 | disposition home or self-care (01) ==
LOC: HO.HMCWIC 10:26
PROVIDERS: PCP Internal Medicine; Visit Provider Physician Assistant Medical
DX: H66.003 Acute suppurative otitis media without spontaneous rupture of ear drum, bilateral (principal)

== ENCOUNTER 2024-12-20 10:26 | Outpatient (REF) | payer OTHER, SELFPAY ==
--- NOTE | ~2024-12-20 | XR_ITS ---
CLINICAL HISTORY: R05.9 - Cough, unspecified 2 view chest x-ray Comparison: 08/28/2023 Findings: No consolidation or effusion. Heart size is normal. No acute fracture. Upper abdominal surgical clips IMPRESSION: 1. No acute findings. This document has been electronically signed by: Mariangel Landry MD on 12/20/2024 12:40:52
== END 2024-12-20 10:27 | disposition home or self-care (01) ==
LOC: HO.HMGCX 10:26
PROVIDERS: PCP Internal Medicine; Visit Provider Physician Assistant Medical
DX: H66.003 Acute suppurative otitis media without spontaneous rupture of ear drum, bilateral (principal); R05.9 Cough, unspecified
CPT/HCPCS: 71046

== ENCOUNTER → 2024-12-20 11:44 | Outpatient (BNV) | payer OTHER, SELFPAY | PROVIDERS: PCP Internal Medicine; Visit Provider Radiology Diagnostic Radiology | DX: R05.9 Cough, unspecified (principal) | CPT/HCPCS: 71046 ==

== ENCOUNTER 2025-01-12 10:50 | Outpatient (AMB) | payer OTHER, SELFPAY ==
--- OUTSIDE RECORDS SUMMARY | 2023-12-17 05:30 | XMS_ITS ---
[facility] Address [address] [facility] [place] [address] Care Team Providers Care Boat Outfitter Name Role Phone Priscilla FELICIANO, Stacy Douglas Primary Care Provider Un available Jose Flower Unavailable [phone] Encounters Encounter Location Date Provider Diagnosis [address] [address] 12/17/2023 Jose Flower Plan Of Treatment Next Appt Details Provider Name:Jose Flower , 03/23/2025 09:45:00 AM, [address], [address], Progress Notes * MIRNAAjayBridgerOB:1960 (64 yo F)Acc No.[id number]:12/17/2023 Progress Note Patient: Cooper ANDRES Provider: Cong Flower DPM :1960 A ge:63 Y S ex:Female Date:12/17/2023 Address:[address] [place] [address] [facility] [id number] Pcp:Dayan Roy Subjective: * Chief Complaints: * * Medical History: Objective: * Vitals: Assessment: Plan: * Treatment: * Images: * The named appointment provid er may or may not be the originator of this progress note, and it is not deemed complete until electronically signed by the appointment provider. Sign off status: Pending * Provider: Cong Flower DPM Date: 0 12/17/2023 Generated for Ludivina flroes/Wolf/Cate on: 0 01/12/2025 02:23 PM EDT
--- OUTSIDE RECORDS SUMMARY | 2024-02-15 05:00 | XMS_ITS ---
Author Organization [facility]ley Address [address] [place] [address] Care Team Providers Care Officer Captain Name Role Phone Priscilla FELICIANO, Stacy Douglas Primary Care Provider Un available Jose Flower Unavailable [phone] Encounters Encounter Location Date Provider Diagnosis [facility] [address] [place] [address] 02/15/2024 Jose Flower Plan Of Treatment Next Appt Details Provider Name:Jose Flower , 03/23/2025 09:45:00 AM, [address] [facility], [place] [address], [place], [address], Progress Notes * MIRNAAjayBridgerOB:1960 (64 yo F)Acc No.[id number]:02/15/2024 Progress Note Patient: Cooper ANDRES Provider: Cheyanne Flower DPM :1960 A ge:63 Y S ex:Female Date:02/15/2024 Address:[address] [place] [address] [facility] [place], [id number] Pcp:Dayan Roy Subjective: * Chief Complaints: * * Medical History: Objective: * Vitals: Assessment: Plan: * Treatment: * Images: * The named appointment provid er may or may not be the originator of this progress note, and it is not deemed complete until electronically signed by the appointment provider. Sign off status: Pending * Provider: Cheyanne Flower DPM Date: 1 Generated for Ludivina flores/Wolf/Cate on: 0 01/12/2025 02:23 PM EDT
[2025-01-12 10:51] VITALS: BP 136/80; PULSE 89; RESP 20; TEMP 36.8; O2SAT 98; BMI 30.9
--- NOTE | 2025-01-12 10:51 | MHC.PC.OV ---
Vital Signs 01/12/25 10:51 Height 5 ft 4 in Weight 180 lb BMI 30.9 BP 136/80 Blood Pressure Location Lt brachial Position Sitting Respiration 20 Pulse 89 Pulse Source Pulse Oximeter Temp 98.2 F Temp Source Oral Pulse Oximetry (%) 98 Oxygen Delivery Method Room Air Intake Visit Reasons: Sore throat Intake Note: Pt is here today for a sick visit. Pt c/o cough for a week. Allergies fexofenadine (From indidebt) Allergy (Unknown, Verified 01/12/25 10:58) dizziness lisinopril Adverse Reaction (Verified 01/12/25 10:58) cough Medication List - Last Reconciled 01/12/25 by Kavya Red MD acetaminophen 650 mg (2 x 325 mg) PO Q6H PRN 30 days albuterol sulfate 90 mcg/actuation 2 puffs inhalation Q6H PRN amlodipine 5 mg PO DAILY celecoxib 200 mg PO BID cromolyn 200 mg PO QID famotidine 20 mg PO BEDTIME meclizine 25 mg PO DAILY PRN montelukast 10 mg PO DAILY multivitamin (Daily Multi-Vitamin tablet) 1 tab PO DAILY naltrexone 3mg olmesartan-hydrochlorothiazide 40-12.5 mg 1 tab PO DAILY prednisone 10 mg PO DAILY zoledronic hbqd-jnbbuhpc-vqaay 5 mg/100 mL (Reclast) ea IV .once yearly Tobacco use date assessed: 01/12/25 Dental Screening Dental Screen Date: 05/26/24 HPI Sore throat HPI Details Pt presents complaining of persistent for 3 months dry cough, worse after laying down with intermittent wheezing. Patient denies sputum production fever chills night sweats nausea vomiting heartburn pleurisy shortness or breath dyspnea on exertion palpitations chest pain PND or orthopnea. She has been to walking 3 times and was treated with Z-Oc followed by Augmentin with 5 days of prednisone. Patient was also prescribed albuterol that she tried without significant relief. Patient felt better while on prednisone for 5 days. She denies exposure to new allergens. 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 Hypertension is controlled on current medications. [facility] Medical History Chronic urticaria Osteopenia Positional lightheadedness Nystagmus History of closed Colles' fracture Surgical menopause Annual physical exam Mastalgia in female Mammogram normal Hyperlipidemia Allergic rhinitis Pemphigus vulgaris Osteoarthritis HTN (hypertension) Surgical History History of bilateral knee replacement History of right hip hemiarthroplasty (~08/29/23) History of arthroplasty of right knee H/O colonoscopy S/P RAFY (total abdominal hysterectomy) Hx of cholecystectomy H/O left knee surgery H/O right wrist surgery History of bladder surgery Family History Father Lung cancer Mother Bladder cancer Paternal Grandmother Breast cancer Social History Household Members: Family Housing: House Do you presently have visiting nurse or other home services: No Alcohol intake: current Alcohol intake frequency: holidays/special occasions only Patient Tobacco Use Status: Never used Tobacco e-Cigarette/Vaping Use: Never Used Second Hand Smoke Exposure: No service: No Current occupational status: employed Current occupation: [employer] Cognitive needs: No Hearing needs: No Vision needs: Yes Questionnaire Thrive Questionnaire Date Thrive assessed: 05/21/24 I am a: Patient What is your living situation today?: I choose not to answer this question Within the past 12 months, did the food you bought not last and you didn't have the money to get more?: I choose not to answer this question Within the past 12 months, did you worry whether your food would run out before you got money to buy more?: I choose not to answer this question Do you have trouble paying for medicines?: No Do you have trouble getting transportation to medical appointments?: No Do you have trouble paying your heating and electricity bill?: No Do you have trouble taking care of your child, family member or friend?: No Do you have trouble with day-to-day activities such as bathing, preparing meals, shopping, managing finances, etc.?: No Are you currently unemployed and looking for a job?: No Are you interested in more education?: No Please select the resources that you would like help with: None Currently or been in a relationship where the following occur: I choose not to answer THRIVE Score: 0 JEFFERY-7 AMB Questionnaire JEFFERY-7 Date JEFFERY - 7 assessed: 05/26/24 Source: Developed by Drs. Manjinder Schulz, Nadine Howard, Jose Ramon Simon and colleagues, with an educational swapna from [employer]. Review of Systems Const All systems reviewed & are unremarkable except as noted in HPI and below Eyes Reports no additional complaints ENT Reports no additional complaints Card Reports no additional complaints Resp Reports no additional complaints GI Reports no additional complaints Reports no additional complaints Physical exam (Primary Care) Vital Signs: Last Vital Signs Temp 98.2 F 01/12/25 10:51 Pulse 89 01/12/25 10:51 Resp 20 01/12/25 10:51 BP 136/80 01/12/25 10:51 Pulse Ox 98 01/12/25 10:51 Oxygen Delivery Method Room Air 01/12/25 10:51 BMI result Body Mass Index 30.9 Tobacco/Smoking Status: Tobacco use Status Tobacco use date assessed 01/12/25 01/12/25 11:01 Patient Tobacco Use Status Never used Tobacco 01/12/25 10:51 e-Cigarette/Vaping Use Never Used 01/12/25 10:51 Thrive Assessment: Date of Thrive Assessment Date Thrive assessed 05/21/24 01/12/25 10:51 Currently or been in a relationship where the following occur: I choose not to answer Const General: no acute distress HENMT Head: Yes normal to inspection Ears: TM's normal bilaterally Face and sinus: Yes normal facial exam Mouth: Normal oral and palatal mucosa present Throat: Yes posterior oropharynx normal Eyes General: appearance normal, both eyes and all related structures Neck Neck: Yes no lymphadenopathy and Yes supple Resp Effort & Inspection: normal respiratory effort Auscultation: wheezes and diminished lung sounds Cardio Rhythm: regular rhythm Heart sounds: S1 normal heart sound present and S2 normal heart sound present GI Inspection: Yes normal to inspection Palpation (GI): Soft to palpation Office Procedures Nebulizer Treatment Nebulizer Treatment [id number]/MDI RX initial, or Nebulizer Subsequent Treatment Office Meds albuterol sulfate 2.5 mg/3 mL (0.083 %) solution for nebulization Performing Provider: Kavya Red MD Performing Location: [facility] Administered by: Naima Forde on 01/12/25 11:34 Dose Route Admin Location Dispensed Lot Number Expiration Date NDC Acid Painter 2.5 mg inhalation 3 mL [id number] 05/30/24 [id number] [facility] Coding Level of Care Code Est Pt Level 3 (65861) Diagnoses Chronic cough R05.3 CPT Codes Nebulizer Treatment - Nebulizer Treatment, initial or subsequent: [id number]-Omxuqeclq/MDI RX initial, or Nebulizer Subsequent Treatment ([id number]) Assessment & Plan Assessment & Plan (1) Chronic cough: Comment: nl CXR 12/20/2024 Code(s): R05.3 - Chronic cough Category: Medical Plan: For chronic cough with wheezing, reactive airway disease, slow prednisone taper is prescribed and pulmonary function test will be scheduled to evaluate. Patient was advised to use albuterol inhaler as needed. Patient is already on montelukast antihistamine and cromolyn male for urticaria. Orders: Orders Comprehensive [place]. Panel Fast Today I10 - Essential (primary) hypertension, R05.3 - Chronic cough AMB Nebulizer Treatment Today R05.3 - Chronic cough B Type Natriuretic Peptide Today I10 - Essential (primary) hypertension, R05.3 - Chronic cough Complete Blood Count Auto Diff Today I10 - Essential (primary) hypertension, R05.3 - Chronic cough PFT pulmonary function test Today R05.3 - Chronic cough Medications: New prednisone Four tablets p.o. q.d. for 4 days then 3 tablets p.o. q.d. for 4 days then 2 tablets p.o. q.d. for 4 days then 1 tablet p.o. q.d. for further 10 mg PO DAILY 40 tabs 0RF
--- OUTSIDE RECORDS SUMMARY | 2025-01-12 14:23 | XMS_ITS | Clinical Summary ---
Author Organization [facility] Address [address] [place] [address] Phone Care Team Providers Care Security Representative Name Role Phone Chris Desai MD Primary Care Provider [phone] Allergies Active Allergy Reactions Criticality Noted Date Comments Fexofenadine Medium 12/24/2018 dizziness Medications dapsone 25 MG tabletIndication s:Take 2 tab twice a kaela Take 25 mg by mouth daily. Indications : Take 2 tab twice a kaela Active raNITIdine (ZANTAC) 300 MG tablet Take 300 mg by mouth 2 (two) times a day. Active prednisoLONE (MILLIPRED) 5 mg TabIndications:T mindy 1 tab every other day Take by mouth. Indications : Take 1 tab every other day Active amLODIPine (NORVASC) 5 MG tablet Take 5 mg by mouth daily. Active lisinopril (PRINIVIL,ZESTRI L) 10 MG tablet Take 10 mg by mouth daily. Active hydroCHLOROthiaz santa (HYDRODIURIL) 25 MG tablet Take 25 mg by mouth daily. Active nabumetone (RELAFEN) 500 MG tabletIndication s:Take 2 tab twice a day Take 500 mg by mouth 2 (two) times a day. Indications : Take 2 tab twice a day Active turmeric root extract 500 mg Cap Take by mouth daily. Active multivitamin Liqd Take 5 mL by mouth daily. Active cholecalciferol, vitamin D3, (VITAMIN D3 ORAL)Indications :Take 50mcg daily Take by mouth daily. Indications : Take 50mcg daily Active bacillus coagulans-inulin 1 billion-250 cell-mg Cap Take 250 mg by mouth 2 (two) times a day. Active calcium carbonate-vitami n D3 1,250 mg (500 mg elemental)-400 units per tabletIndication s:Take 600 mg daily Take 1 tablet by mouth daily. Indications : Take 600 mg daily Active cetirizine (ZYRTEC) 10 MG tablet Take 10 mg by mouth 2 (two) times a day. Active black cohosh 540 mg Cap Take by mouth daily. Active cyanocobalamin, vitamin B-12, (VITAMIN B-12) 5,[address] under the tongue daily. Active Social History Tobacco Use Types Packs/Day Years Used Date Smoking Tobacco: Never Smokeless Tobacco: Never Alcohol Use Standard Drinks/Week Comments Yes 0 (1 standard drink = 0.6 oz pur e alcohol) occasionally Education Answer Date Recorded Are you interested in more education? Not on pablo e 08/25/2022 Are you concerned about learning? Not on file 08/25/2022 No 08/25/2022 No 08/25/2022 Digital Access Answer Date Recorded No 09/23/2022 No 09/23/2022 No 09/23/2022 Reliable internet access at home? Not on file 09/23/2022 Device with a working camera? Not on file Comments Unknown Sex and Gender Information Value Date Recorded Sex Assigned at Not on file Legal Sex Female 10:34 PM EDT Gender Identity Not on file Sexual Orientation Not on file Last Filed Vital Signs Vital Sign Reading Time Taken Comments Blood Pressure - - Pulse - - Temperature - - Respiratory Rate - - Oxygen Saturation - - Inhaled Oxygen Concentration - - Weight 83.6 kg (184 lb 4.9 oz) 12/24/2018 11:11 AM EDT Height 162.6 cm (5' 4 ) 12/24/2018 11:11 AM EDT verbal Body Mass Index 31.64 12/24/2018 11:11 AM EDT Plan of Treatment Health Maintenance Due Date Last Done Comments Adult Td,Tdap Booster 1962 CREATININE LEVEL 1962 LIPID PANEL 1962 POTASSIUM LEVEL 1962 DEPRESSION SCREENING 1974 HEPATITIS C SCREENING 1980 HIV ONE-TIME SCREENING (18-6 5 YEARS) 1980 PAP SMEAR 07/01/1983 MAMMOGRAM 2002 COLOGUARD 07/01/2007 COLONOSCOPY 07/01/2007 COLORECTAL CANCER SCREENING 07/01/2007 FIT TEST 07/01/2007 FOBT 07/01/2007 SIGMOIDOSCOPY 07/01/2007 VIRTUAL COLONOSCOPY 07/01/2007 PNEUMOCOCCAL VACCINES (50+ y ears) (1 of 1 - PCV) 2012 ZOSTER VACCINES (1 of 2) 2012 INFLUENZA VACCINE (#1) 2024 COVID-19 VACCINE (2 - 2024-2 6 season) 2024 07/30/2020 RSV VACCINE (1 - 1-dose 75+ series) 2037 SMOKING STATUS SCREENING (On ce After 26 Yrs) Completed 12/24/2018 HEPATITIS A VACCINES Aged Out No long er eligible based on patient's age to complete this topic HIB VACCINES Aged Out No longer eligi ble based on patient's age to complete this topic MENINGOCOCCAL VACCINES (ACWY) Aged Out No longer eligible based on patient's age to complete this topic MENINGOCOCCAL VACCINES (B) Aged Out N o longer eligible based on patient's age to complete this topic Medical Devices Not on file Insurance Room PPO Room PPO CIGNA CARELINK PPO CIGNA CARELINK PPO CIGNA CARELINK PPO CIGNA CARELINK PPO CIGNA CARELINK PPO CIGNA CARELINK PPO CIGNA CARELINK PPO Care Teams Security Representative Relationship Specialty Start Date End Date Chris Desai MD [address] [place] [address] [id number] PCP - General Internal Medicine 09/27/18 Additional Source Comments The information contained in this document represents components of the legal health record. It is not the complete legal health record.[facility]
--- OUTSIDE RECORDS SUMMARY | 2025-01-12 14:23 | XMS_ITS | Patient Health Record ---
Author Organization [facility] [place] Address [address] [address] Care Team Providers Care Director Of Pharmacy Name Role Phone Priscilla FELICIANO, Stacy Douglas Primary Care Provider Un available Jose Flower Unavailable [phone] Allergies Allergen (clinical drug ingredient) Drug/Non Drug [...] W/U Status Risk Notes Problem Plantar wart ([id number]) Plantar wart (B07.0) Active confirmed Encounters Encounter Location Date Provider Diagnosis [facility] [place] [address] [place] [address] 02/07/2024 Jose Flower Plan Of Treatment Pending Test Test Name Order Date [id number] Destruction, 05-1312/10/2019 [id number]-Agip Destruction, 05-1303/01/2021 [id number] Destruction, 05-1307/07/2021 [id number]-Flczixki Plate 04/14/2022 [id number] 06/28/2018 [id number]- Debride <25 sq cm 02/04/2016 62739 I&D ABSCESS- SIMPLE,SINGLE 017 [id number] I&D ABSCESS- SIMPLE,SINGLE 018 57232 I&D ABSCESS- SIMPLE,SINGLE 020 91589 I&D ABSCESS- SIMPLE,SINGLE 022 83491 I&D ABSCESS- SIMPLE,SINGLE 021 [id number] I&D ABSCESS- SIMPLE,SINGLE 024 87274 I&D ABSCESS- SIMPLE,SINGLE 016 Next Appt Details Provider Name:Jose Flower , 03/23/2025 09:45:00 AM, [address] [facility], [facility] [address], [place], [address], Insurance Providers Payer Name Payer Address Payer Phone Subscriber Number Group Number Insured Name Patient Relationship to Insured Coverage Start Date Coverage End Date [facility] [id number] [id number] [place] [address] [id number] Copoer Finney Self - patient is the insured [...]
--- OUTSIDE RECORDS SUMMARY | 2025-01-12 14:23 | XMS_ITS | Encounter Summary ---
Author Organization [facility] Address [address] [place] [address] Phone Care Team Providers Care Harness Puller Name Role Phone Chris Desai MD Primary Care Provider [phone] Encounter Details Date Type Department Care Team (Late st Contact Info) Description 12/24/2018 Procedure Pass [facility] [address] [place] [address] Social History Tobacco Use Types Packs/Day Years [...] on filedocumented in this encounter Care Teams Harness Puller Relationship Specialty Start Date End Date Chris Desai MD [address] [place] [address] PCP - General Internal Medicine 09/27/18 documented as of this encounter Additional Source Comments The information contained in this document represents components of the legal health record. It is not the complete legal health record.[facility]
--- OUTSIDE RECORDS SUMMARY | 2025-01-12 14:23 | XMS_ITS | Clinical Summary ---
Author Organization [facility] Address [address] [place] [address] Care Team Providers Care Favor Maker Name Role Phone Kavya Red MD Primary Care Provider [phone] Allergies Active Allergy Reactions Criticality Noted Date [...] age to complete this topic Care Teams Favor Maker Relationship Specialty Start Date End Date Kavya Red MD [address] [place] [address] PCP - General Environmental Research Project Manager 08/05/20
--- OUTSIDE RECORDS SUMMARY | 2025-01-12 14:23 | XMS_ITS | Encounter Summary ---
Author Organization [facility] Address [address] [place] [address] Phone Care Team Providers Care Public Works Commissioner Name Role Phone Chris Desai MD Primary Care Provider [phone] Encounter Details Date Type Department Care Team (Late st Contact Info) Description 12/24/2018 Procedure Pass [facility] [address] [place] [address] Social History Tobacco Use Types Packs/Day Years [...] on filedocumented in this encounter Care Teams Public Works Commissioner Relationship Specialty Start Date End Date Chris Desai MD [address] [place] [address] PCP - General Internal Medicine 09/27/18 documented as of this encounter Additional Source Comments The information contained in this document represents components of the legal health record. It is not the complete legal health record.[facility]
== END 2025-01-12 11:48 | disposition home or self-care (01) ==
LOC: HO.HMCC 10:50
PROVIDERS: PCP Internal Medicine; Visit Provider Internal Medicine
DX: R05.3 Chronic cough (principal)

== ENCOUNTER 2025-01-12 10:50 | Outpatient (REF) | payer OTHER, SELFPAY ==
[2025-01-12 13:27] LABS: MANUAL DIFF FLAG NO
[2025-01-12 13:33] LABS: Hematocrit 40.3 % (37.0-47.0); Hemoglobin 13.8 g/dl (12.0-16.0); Imm Gran Abs Auto 0.02 X10*3/uL (0.00-0.03); Imm Gran Pct Auto 0.3 % (0.0-0.4); Lymphocytes Absolute Auto 2.5 X10*3/uL (1.2-4.9); Mean Corpuscular HGB Conc 34.2 g/dl (31.0-35.0); Mean Corpuscular Hemoglobin 30.0 pg (27.0-33.0); Mean Corpuscular Volume 87.6 fL (80.0-98.0); NRBC Abs Auto 0.000 X10*3/uL (0.0-0.012); NRBC Pct Auto 0.0 /100WBC (0.0-0.2); Platelet Count 224 X10*3/uL (160-400); Red Blood Count 4.60 X10*6/uL (4.20-5.50); White Blood Count 6.6 X10*3/uL (4.8-10.8)
[2025-01-12 14:01] LABS: B Type Natriuretic Peptide 195 pg/mL (<100)
[2025-01-12 16:46] LABS: Alanine Aminotransferase 17 U/L (0-31); Albumin Level 4.3 g/dL (3.5-5.0); Alkaline Phosphatase 73 U/L (39-117); Anion Gap 11 (12-20); Aspartate Amino Transferase 23 U/L (5-31); Blood Urea Nitrogen 15 mg/dL (9-16); Calcium 9.4 mg/dL (8.4-10.2); Carbon Dioxide 25 mmol/L (22-29); Chloride 110 mmol/L (96-108); Estimated Glomerular Filt Rate > 60; Potassium 3.2 mmol/L (3.3-5.1); Sodium 143 mmol/L (135-145); Total Protein 6.4 g/dL (6.5-8.0)
== END 2025-01-12 10:51 | disposition home or self-care (01) ==
LOC: HO.HMGCLDS 10:50
PROVIDERS: PCP Internal Medicine; Visit Provider Internal Medicine
DX: R05.3 Chronic cough (principal); I10 Essential (primary) hypertension
CPT/HCPCS: 36415; 80053; 83880; 85025; 94640

== ENCOUNTER 2025-01-23 13:50 | Outpatient (AMB) | payer OTHER, SELFPAY ==
--- OUTSIDE RECORDS SUMMARY | 2023-12-17 05:30 | XMS_ITS ---
Author Organization [facility] Address [address] [facility] [place] [address] Care Team Providers Care Food Counselor Name Role Phone Priscilla FELICIANO, Stacy Douglas Primary Care Provider Un available Jose Flower Unavailable [phone] Encounters Encounter Location Date Provider Diagnosis [address] [address] 12/17/2023 Jose Flower Plan Of Treatment No Information Progress Notes * MIRNAAjayBridgerOB:1960 (64 yo F)Acc No.[id number]:12/17/2023 Progress Note Patient: Cooper ANDRES Provider: Cong Flower DPM :1960 A ge:63 Y S ex:Female Date:12/17/2023 Address:[address] [place] [id number] Pcp:Dayan Roy Subjective: * Chief Complaints: * * Medical History: Objective: * Vitals: Assessment: Plan: * Treatment: * Images: * The named appointment provid er may or may not be the originator of this progress note, and it is not deemed complete until electronically signed by the appointment provider. Sign off status: Pending * Provider: Cong Flower DPM Date: 12/17/2023 Generated for Printi ng/Faxing/eTransmitting on: 01/23/2025 02:59 PM EDT
--- OUTSIDE RECORDS SUMMARY | 2024-02-15 05:00 | XMS_ITS ---
Author Organization [facility] Address [address] [place] [address] Care Team Providers Care Sieve Grader Tender Name Role Phone Priscilla FELICIANO, Stacy Douglas Primary Care Provider Un available Jose Flower Unavailable [phone] Encounters Encounter Location Date Provider Diagnosis [address] [address] 02/15/2024 Jose Flower Plan Of Treatment No Information Progress Notes * MIRNAAjayBridgerOB:1960 (64 yo F)Acc No.[id number]:02/15/2024 Progress Note Patient: Cooper ANDRES Provider: Cong Flower DPM :1960 A ge:63 Y S ex:Female Date:02/15/2024 Address:[address] [place] [id number] Pcp:Dayan Roy Subjective: * Chief Complaints: * * Medical History: Objective: * Vitals: Assessment: Plan: * Treatment: * Images: * The named appointment provid er may or may not be the originator of this progress note, and it is not deemed complete until electronically signed by the appointment provider. Sign off status: Pending * Provider: Cong Flower DPM Date: 1 Generated for Printi ng/Faxing/eTransmitting on: 0 01/23/2025 02:59 PM EDT
--- OUTSIDE RECORDS SUMMARY | 2025-01-21 10:15 | XMS_ITS ---
Author Organization [facility] Address [address] [place] [address] Care Team Providers Care Central Office Operator Supervisor Name Role Phone Priscilla FELICIANO, Stacy Douglas Primary Care Provider Un available Jose Flower Unavailable [phone] Encounters Encounter Location Date Provider Diagnosis [address] [address] 01/21/2025 Jose Flower Plan Of Treatment No Information Progress Notes * MIRNAAjayBridgerOB:1960 (64 yo F)Acc No.[id number]:01/21/2025 Progress Note Patient: Cooper ANDRES Provider: Cong Flower DPM :1960 A ge:64 Y S ex:Female Date:01/21/2025 Address:[address] [place] [phone] Pcp:Dayan Roy Subjective: * Chief Complaints: * * Medical History: Objective: * Vitals: Assessment: Plan: * Treatment: * Images: * The named appointment provid er may or may not be the originator of this progress note, and it is not deemed complete until electronically signed by the appointment provider. Sign off status: Pending * Provider: Cong Flower DPM Date: 01/21/2025 Generated for Printi ng/Faxing/eTransmitting on: 01/23/2025 02:59 PM EDT
--- NOTE | 2025-01-23 13:59 | AM.OFFWIN_ITS ---
Intake Vital Signs 01/23/25 14:00 Height 5 ft 4 in Weight 182 lb BMI 31.2 BP 134/76 Blood Pressure Location Rt brachial Position Sitting Pulse 80 Pulse Source Pulse Oximeter Temp 98.0 F Temp Source Oral Pulse Oximetry (%) 96 Oxygen Delivery Method Room Air Intake Visit Reasons: EP left sore wrist from fall Patient Tobacco Use Status: Never used Tobacco Allergies fexofenadine (From Romi) Allergy (Unknown, Verified 01/23/25 14:03) dizziness lisinopril Adverse Reaction (Verified 01/23/25 14:03) cough Do you need a note to return to daycare/school/sports/work: Yes HPI HPI Comments History of Present Illness Details History of Present Illness - The patient is a 64-year-old female pr esenting with a fall-related injury. - The fall occurred two days prior while walking to her car, with no associated dizziness, chest pain, lightheadedness prior to the fall. She did hit her heead, no loss of consciousness reported. She is not on a blood thinner. - The patient reports soreness in the wr ist and forehead, with a history of arthritis contributing to baseline pain. - She has been managing pain with Tyleno l and is unable to take ibuprofen due to current medication regimen of Celebrex. Physical Exam General: Cooperative, healthy appearing, comfortable, no acute distress and well developed Orientation: Patient oriented x3 Limitations: No limitations Head: Sore forehead, possible scrape, no loss of consciousness Ears: Hearing grossly normal bilaterally Face and sinus: Normal facial exam, patient is wearing glasses and those have scrapes on the left lens Eyes: Appearance normal, both eyes and all related structures Neck: Normal visual inspection, full ROM Respiratory: Normal respiratory effort and able to speak in complete sentences. Skin: superficial scrape on left forehead, no signs of infection noted, no warmth or discharge noted Neuro: Patient oriented x3, gait normal Back/spine: no TTP cervical, thoracic or lumbar spine Extremities: Left Distal forearm with 3 cm round area of yellow and purple ecchymosis, left wrist slight tenderness to palpation, full range of motion of the left wrist, full range of motion of the fingers, fingers are NVI. Right volar aspect of the hand has 3 small scabs with no signs of infection noted, no discharge or warmth, no surrounding erythema. Right wrist, hand and fingers have full range of motion, fingers are NVI, no ecchymosis noted Review of Systems - Neurological: Denies dizziness, lighth eadedness, or loss of consciousness - Musculoskeletal: Reports wrist pain an d soreness in the forehead - General: Denies chest pain or shortnes s of breath All systems reviewed and are unremarkable except as noted in HPI PFSH Medical History Chronic urticaria Osteopenia Positional lightheadedness Nystagmus History of closed Colles' fracture Surgical menopause Annual physical exam Mastalgia in female Mammogram normal Hyperlipidemia Allergic rhinitis Pemphigus vulgaris Osteoarthritis HTN (hypertension) Surgical History History of bilateral knee replacement History of right hip hemiarthroplasty (~08/29/23) History of arthroplasty of right knee H/O colonoscopy S/P RAFY (total abdominal hysterectomy) Hx of cholecystectomy H/O left knee surgery H/O right wrist surgery History of bladder surgery Family History Father Lung cancer Mother Bladder cancer Paternal Grandmother Breast cancer Social History Household Members: Family Housing: House Do you presently have visiting nurse or other home services: No Alcohol intake: current Alcohol intake frequency: holidays/special occasions only Patient Tobacco Use Status: Never used Tobacco e-Cigarette/Vaping Use: Never Used Second Hand Smoke Exposure: No service: No Current occupational status: employed Current occupation: [employer] Cognitive needs: No Hearing needs: No Vision needs: Yes Physical Exam Vital Signs: Last Vital Signs Temp 98.0 F 01/23/25 14:00 Pulse 80 01/23/25 14:00 BP 134/76 01/23/25 14:00 Pulse Ox 96 01/23/25 14:00 Oxygen Delivery Method Room Air 01/23/25 14:00 BMI result Body Mass Index 31.2 Assessment & Plan Assessment & Plan (1) Contusion of left wrist, initial encounter: Code(s): S60.212A - Contusion of left wrist, initial encounter Plan: Plan - Fit patient for and provided a wrist brace for support and to alleviate pain, wean off over coming 7-10 days. - Advise applying ice and resting the wrist to reduce swelling and discomfort. - Continue taking Tylenol for pain management as needed. - No imaging required at this time as physical examination does not indicate fracture. - If pain does not improve over coming weeks, please follow up with your PCP or return to the [facility]. Patient was informed and verbally consented to the use of an ambient scribe for clinic note documentation during this visit. Coding Level of Care Code Est Pt Level 3 (45651) Diagnoses Contusion of left wrist, initial encounter S60.212A
[2025-01-23 14:00] VITALS: BP 134/76; PULSE 80; TEMP 36.7; O2SAT 96; BMI 31.2
--- OUTSIDE RECORDS SUMMARY | 2025-01-23 14:59 | XMS_ITS | Encounter Summary ---
Author Organization [facility] Address [address] [place] [address] Phone Care Team Providers Care Thermal Cutting Machine Operator Name Role Phone Chris Desai MD Primary Care Provider [phone] Encounter Details Date Type Department Care Team (Late st Contact Info) Description 12/24/2018 Procedure Pass [facility] [address] [place] [address] Social History Tobacco Use Types Packs/Day Years [...] on filedocumented in this encounter Care Teams Thermal Cutting Machine Operator Relationship Specialty Start Date End Date Chris Desai MD [address] [place] [address] PCP - General Internal Medicine 09/27/18 documented as of this encounter Additional Source Comments The information contained in this document represents components of the legal health record. It is not the complete legal health record.[facility]
--- OUTSIDE RECORDS SUMMARY | 2025-01-23 14:59 | XMS_ITS | Patient Health Record ---
Author Organization [facility] a[facility] Address [address] [place] [address] Care Team Providers Care Thermal Technician Name Role Phone Priscilla FELICIANO, Stacy Douglas Primary Care Provider Un available Jose Flower Unavailable [phone] Allergies Allergen (clinical drug ingredient) Drug/Non Drug [...] COVID-19 Moderna Vaccine Unknown 08/27/2020 Administere d 07/30/2020 Social History Tobacco Use: Social History [...] W/U Status Risk Notes Problem Plantar wart (98567280) Plantar wart (B07.0) Active confirmed Encounters Encounter Location Date Provider Diagnosis [facility] [place] [address] [place] [address] 02/07/2024 Jose Flower [facility] [place] [address] [place] [phone] 01/21/2025 Jose Flower Plan Of Treatment Pending Test Test Name Order Date [id number] Destruction, 05-1312/10/2019 [id number] Destruction, 05-1303/01/[id number]-Ugqf Destruction, 05-1307/07/2021 95601-Vvcufthg Plate 04/14/2022 [id number] 06/28/2018 63374- Debride <25 sq cm 02/04/2016 52429 I&D ABSCESS- SIMPLE,SINGLE 017 24349 I&D ABSCESS- SIMPLE,SINGLE 018 57373 I&D ABSCESS- SIMPLE,SINGLE 020 52793 I&D ABSCESS- SIMPLE,SINGLE 022 65699 I&D ABSCESS- SIMPLE,SINGLE 021 75914 I&D ABSCESS- SIMPLE,SINGLE 024 46665 I&D ABSCESS- SIMPLE,SINGLE 016 Insurance Providers Payer Name Payer Address Payer Phone Subscriber Number Group Number Insured Name Patient Relationship to Insured Coverage Start Date Coverage End Date [facility] [id number] [address] [place] [id number] Cooper Finney Self - patient is the [...]
--- OUTSIDE RECORDS SUMMARY | 2025-01-23 15:00 | XMS_ITS | Clinical Summary ---
Author Organization [facility] Address [address] [place] [address] Care Team Providers Care Emergency Medical Technician/Driver Name Role Phone Kavya Red MD Primary Care Provider [phone] Allergies Active Allergy Reactions Criticality Noted Date [...] age to complete this topic Care Teams Emergency Medical Technician/Driver Relationship Specialty Start Date End Date Kavya Red MD [address] [place] [address] PCP - General Handle Assembler 08/05/20
--- OUTSIDE RECORDS SUMMARY | 2025-01-23 15:00 | XMS_ITS | Clinical Summary ---
Author Organization [facility] Address [address] [place] [address] Phone Care Team Providers Care Unit Educator Name Role Phone Chris Desai MD Primary Care Provider [phone] Allergies Active Allergy Reactions Criticality Noted Date [...] topic Medical Devices Not on file Insurance Frogdice PPO Frogdice PPO CIGNA CARELINK PPO CIGNA CARELINK PPO CIGNA CARELINK PPO CIGNA CARELINK PPO CIGNA CARELINK PPO CIGNA CARELINK PPO CIGNA CARELINK PPO Care Teams Unit Educator Relationship Specialty Start Date End Date Chris Desai MD [address] [place] [address] [id number] PCP - General Internal Medicine 09/27/18 Additional Source Comments The information contained in this document represents components of the legal health record. It is not the complete legal health record.[facility]
--- OUTSIDE RECORDS SUMMARY | 2025-01-23 15:00 | XMS_ITS | Encounter Summary ---
Author Organization [facility] Address [address] [place] [address] Phone Care Team Providers Care Junction Maker Name Role Phone Chris Desai MD Primary Care Provider [phone] Encounter Details Date Type Department Care Team (Late st Contact Info) Description 12/24/2018 Procedure Pass [facility] [address] [place] [address] Social History Tobacco Use Types Packs/Day Years [...] on filedocumented in this encounter Care Teams Junction Maker Relationship Specialty Start Date End Date Chris Desai MD [address] [place] [address] PCP - General Internal Medicine 09/27/18 documented as of this encounter Additional Source Comments The information contained in this document represents components of the legal health record. It is not the complete legal health record.[facility]
== END 2025-01-23 14:29 | disposition home or self-care (01) ==
PROVIDERS: PCP Internal Medicine; Visit Provider Physician Assistant
DX: S60.212A Contusion of left wrist, initial encounter (principal)

== ENCOUNTER 2025-01-29 07:31 | Outpatient (REF) | payer OTHER, SELFPAY ==
--- OUTSIDE RECORDS SUMMARY | 2023-12-17 05:30 | XMS_ITS ---
Author Organization [facility] Address [address] [facility] [place] [place] [address] Care Team Providers Care Management Accountant Name Role Phone Priscilla FELICIANO, Stacy Douglas Primary Care Provider Un available Jose Flower Unavailable [phone] Encounters Encounter Location Date Provider Diagnosis [address] [address] 12/17/2023 Jose Flower Plan Of Treatment No Information Progress Notes * MIRNAAjayBridgerOB:1960 (64 yo F)Acc No.[id number]:12/17/2023 Progress Note Patient: Cooper ANDRES Provider: Cong Flower DPM :1960 A ge:63 Y S ex:Female Date:12/17/2023 Address:[address] [place] [address] [place], [id number] Pcp:Dayan Roy Subjective: * Chief Complaints: * * Medical History: Objective: * Vitals: Assessment: Plan: * Treatment: * Images: * The named appointment provid er may or may not be the originator of this progress note, and it is not deemed complete until electronically signed by the appointment provider. Sign off status: Pending * Provider: Cong Flower DPM Date: 0 12/17/2023 Generated for Printi ng/Faxing/eTransmitting on: 07:34 AM EDT
--- OUTSIDE RECORDS SUMMARY | 2024-02-15 05:00 | XMS_ITS ---
Author Organization [facility] Address [address] [place] [address] Care Team Providers Care Charge Account Clerk Name Role Phone Priscilla FELICIANO, Stacy Douglas Primary Care Provider Un available Jose Flower Unavailable [phone] Encounters Encounter Location Date Provider Diagnosis [address] [address] 02/15/2024 Jose Flower Plan Of Treatment No Information Progress Notes * MIRNAAjayBridgerOB:1960 (64 yo F)Acc No.[id number]:02/15/2024 Progress Note Patient: Cooper ANDRES Provider: Cong Flower DPM :1960 A ge:63 Y S ex:Female Date:02/15/2024 Address:[address] [place] [id number] Pcp:Dayan Roy Subjective: * Chief Complaints: * * Medical History: Objective: * Vitals: Assessment: Plan: * Treatment: * Images: * The named appointment provid er may or may not be the originator of this progress note, and it is not deemed complete until electronically signed by the appointment provider. Sign off status: Pending * Provider: Cong Flower DPM Date: Generated for Printi ng/Faxing/eTransmitting on: 07:35 AM EDT
--- OUTSIDE RECORDS SUMMARY | 2025-01-21 10:15 | XMS_ITS ---
Author Organization [facility] Address [address] [place] [address] Care Team Providers Care Compensation Vice President Name Role Phone Priscilla FELICIANO, Stacy Douglas Primary Care Provider Un available Jose Flower Unavailable [phone] Encounters Encounter Location Date Provider Diagnosis [address] [address] 01/21/2025 Jose Flower Plan Of Treatment No Information Progress Notes * MIRNAAjayBridgerOB:1960 (64 yo F)Acc No.[id number]:01/21/2025 Progress Note Patient: Cooper ANDRES Provider: Cong Flower DPM :1960 A ge:64 Y S ex:Female Date:01/21/2025 Address:[address] [place] [id number] Pcp:Dayan Roy Subjective: * Chief Complaints: * * Medical History: Objective: * Vitals: Assessment: Plan: * Treatment: * Images: * The named appointment provid er may or may not be the originator of this progress note, and it is not deemed complete until electronically signed by the appointment provider. Sign off status: Pending * Provider: Cong Flower DPM Date: 0 01/21/2025 Generated for Printi ng/Faxing/eTransmitting on: 07:36 AM EDT
--- OUTSIDE RECORDS SUMMARY | 2025-01-29 07:34 | XMS_ITS | Encounter Summary ---
Author Organization [facility] Address [address] [place] [address] Phone Care Team Providers Care Meat Grader Name Role Phone Chris Desai MD Primary Care Provider [phone] Encounter Details Date Type Department Care Team (Late st Contact Info) Description 12/24/2018 Procedure Pass [facility] [address] [place] [address] Social History Tobacco Use Types Packs/Day Years [...] on filedocumented in this encounter Care Teams Meat Grader Relationship Specialty Start Date End Date Chris Desai MD [address] [place] [address] PCP - General Internal Medicine 09/27/18 documented as of this encounter Additional Source Comments The information contained in this document represents components of the legal health record. It is not the complete legal health record.[facility]
--- OUTSIDE RECORDS SUMMARY | 2025-01-29 07:35 | XMS_ITS | Data Portability ---
Author Organization [place] [facility] Address [address] [place] [address] Care Team Providers Care Delivery Recruiter Name Role Phone LOURDESCARMENZA Primary Care Provider Assessment No assessment recorded. Plan of Treatment Reminders Order Date Submit Date Provider Last Modified By Organization Details Last Modified Time Details Appointments None record ed. Lab None record ed. Referral None record ed. Procedures None record ed. Surgeries None record ed. Imaging XR, knee, 3 view 023 08/26/19 23 [email or web address] 7 [facility], [address], [place], [address], 3 14:30:47 Medication Orders None record ed. Patient TargetsNo targets recorded. Patient InstructionsNo instructions recorded. Reason for Referral None Reported. Problems Name Problem SNOMED Code Status Onset Date Resolution Date Notes Provider Name and Address Organization Details Recorded Time Problem 20312114 Active No known active problems Not Available [facility] 5 00:12:20 Problem Notes None recorded. Procedures Surgical History Date Name Laterality Status Provider Name and Address Organization Details Recorded Time Hand Surgery completed Richard Kaminski - [facility] 08/25/2022 11:55:40 Knee Surgery completed Richard Kaminski - [facility] 08/25/2022 11:55:54 Imaging Results None recorded. Procedure Notes None recorded. Medical Equipment None Reported. Allergies Allergen ID Allergen Name Allergen Category Reaction Reaction Severity Criticality Documentation Date Start Date Code Code System Note Provider Name and Address Organization Details Recorded Time 088214 fexofenad ine medicatio n Not available Not available Not available 01/20/20252018 39807 RxNorm dizzi ness Not Available [facility] 5 01:31:50 3179 cow milk allergeni c extract food,medi cation Not available Not available Not available 08/25/2022 95673 5 RxNorm Richard Dutton null, [place] [facility] 3 11:55:05 3180 Romi medicatio n Not available Not available Not available 08/25/2022 77330 6 RxNorm Richard Dutton null, [place] [facility] 3 11:55:10 Medications Name Sig Start Date Stop Date Status Note LastModified by Organization Details LastModified Time celecoxib 200 mg capsule active Not Available Not Available Not Available amoxicillin 500 mg capsule TAKE 1 CAPSULE BY MOUTH TWICE A DAY FOR 10 DAYS active Not Available Not Available No t Available meloxicam 15 mg tablet Take 1 tablet (15 mg total) by mouth daily for 15 days. 05/14 completed Not Available Not Available Not Available ondansetron HCl 4 mg tablet Take 1-2 tablets (4-8 mg total) by mouth every 8 (eight) hours as needed for nausea for up to 14 days. 05/13 completed Not Available Not Available Not Available bupivacaine HCl 0.5 % (5 mg/mL) injection solution 12/21 completed Not Available Not Available Not Available sennosides 8.6 mg-docusate sodium 50 mg tablet Take 1 tablet by mouth 2 (two) times a day for 30 days. For constipat ion while taking opioid medicatio ns. Can discontin ue once no longer taking opioids. 05/29 completed Not Available Not Available Not Available prednisone 5 mg tablet Take 1 tablet (5 mg total) by mouth every other day. active Not Available Not Available No t Available amlodipine 5 mg tablet TAKE 1 TABLET BY MOUTH EVERY DAY active Not Available Not Available No t Available aspirin 81 mg tablet,jessie yed release Take 1 tablet (81 mg total) by mouth 2 (two) times a day for 28 days. For DVT prophylax is. 05/27 completed Not Available Not Available Not Available acetaminoph en 500 mg tablet Take 2 tablets (1,000 mg total) by mouth every 8 (eight) hours for 28 days. 05/27 completed Not Available Not Available Not Available cefadroxil 500 mg capsule Take 1 capsule (500 mg total) by mouth 2 (two) times a day for 7 days. 05/10 completed Not Available Not Available Not Available methocarbam ol 750 mg tablet Take 1 tablet (750 mg total) by mouth 4 (four) times a day as needed for up to 14 days. 05/13 completed Not Available Not Available Not Available triamcinolo ne acetonide 40 mg/mL suspension for injection 12/21 completed Not Available Not Available Not Available pantoprazol e 40 mg tablet,jessie yed release Take 1 tablet (40 mg total) by mouth every morning on an empty stomach for 28 days. 05/27 completed Not Available Not Available Not Available lisinopril 20 mg-hydrochl orothiazide 25 mg tablet TAKE 1 TABLET BY MOUTH EVERY DAY active Not Available Not Available No t Available montelukast 10 mg tablet TAKE 1 TABLET BY MOUTH EVERY DAY active Not Available Not Available No t Available albuterol sulfate HFA 90 mcg/actuati on aerosol inhaler INHALE 2 PUFFS 4 TIMES A DAY NEEDED FOR SHORTNESS OF BREATH OR WHEEZING active Not Available Not Available No t Available celecoxib 100 mg capsule Take 1 capsule (100 mg total) by mouth 2 (two) times a day. 04/28 completed Not Available Not Available Not Available oxycodone 5 mg tablet Take 1-2 tablets (5-10 mg total) by mouth every 4 (four) hours as needed for pain. 2021 active Not Available Not Available Not Avai lable olmesartan 40 mg-hydrochl orothiazide 12.5 mg tablet TAKE 1 TABLET BY MOUTH EVERY DAY active Not Available Not Available No t Available ciprofloxac in 0.3 %-dexametha sone 0.1 % ear drops,suspe nsion PUT 4 DROPS INTO AFFECTED EAR(S) 2 TIMES A DAY FOR SEVEN DAYS active Not Available Not Available No t Available nitrofurant oin monohydrate /macrocryst als 100 mg capsule TAKE 1 CAPSULE BY MOUTH EVERY 12 HOURS FOR 5 DAYS MUST ADMINISTE R WITH A MEAL/FOOD active Not Available Not Available No t Available lidocaine (PF) 20 mg/mL (2 %) injection solution 12/21 completed Not Available Not Available Not Available cholecalcif hillary (vitamin D3) 25 mcg (1,000 unit) tablet Take 1 tablet (25 mcg total) by mouth daily. active Not Available Not Available No t Available Bacillus subtilis 1.5 billion cell-inulin 1 gram chewable tablet Chew by mouth. active Not Available Not Available No t Available Flowflex COVID-19 Antigen Home Test kit active Not Available Not Available Not Available Vitals None Recorded Social History None recorded. Functional Status Question Answer Note LastModified by Organizat ion Details LastModified Time How many times per week do you consume alcohol? Less than 1 time per week [email or web address] Information not available 08/25/2022 Do you use any illicit or recreational drugs? No [email or web address] Information not available 08/25/2022 Do you or have you ever used any other forms of tobacco or nicotine? No [email or web address] Information not available 08/25/2022 What is your level of alcohol consumption? Occasional [email or web address] Information not available 08/25/2022 Mental Status None recorded. Family History Relationship Description Onset Age of this Age Resolved Age Notes LastModified by Organization Details LastModified Time Father Arthritis Not avai lable 08/25/2022 11:58:01 Father Family history of malignant neoplasm [email or web address] Not available 11:58:13 Father Rheumatoid arthritis [email or web address] Not available 11:58:34 Mother Arthritis [email or web address] Not avai lable 08/25/2022 11:58:01 Mother Family history of malignant neoplasm [email or web address] Not available 11:58:13 Mother Osteoarthrit is [email or web address] Not available 11:58:24 Medical History Condition Response Autoimmune disease Y Osteopenia Y Hypertension Y Gynecological HistoryNo gynecological history recorded. Obstetrics History GPAL:G 0 P 0 0 0 0 Past Encounters Encounter ID Performer Location Encounter Start Date Encounter Closed Date Diagnosis/Indication Diagnosis SNOMED-CT Code Diagnosis ICD10 Code Diagnosis IMO Codes Diagnosis Note [id number] Demario Morales MD [address] [place] [address] 08/25/2022 11:22:17 08/25/2022 12:21:17 History of right total knee replacement 2085918506 086789 Z96.651 Aftercare 135677897 Z47. 1 Health Concerns Section Related Observation LastModified by Organization Detai ls LastModified Time None Recorded Concern Status LastModified by Organization Details LastModified Time None Recorded Advance Directives Directive None Recorded Payers None recorded. Notes Date Note Type Note Provider Name and Address Organization Details Recorded Time 08/25/2022 text/html HPI: Patient is here for 3 month(s) follow-up for a RIGHT total knee replacement. She has recovered very well. She reports really 0 pain at baseline. She has 1 out of 10 at worst. She is back to all these. She functions well. She is very happy overall, P atient reports good pain relief in the knee and satisfactory anabaptism of function in terms of activities of [...] degrees. The alignment of the knee is neutral. Muscle strength is normal. Pedal pulses are palpable. Hip examination, including flexion and internal rotation, was negative in that groin pain was not produced. Assessment/Plan: This patient is functioning well 3 month(s) after RIGHT total knee arthroplasty. Continue knee conditioning exercises. Rezm-aju-mwiuqto medications as needed. Ultimate failure may occur due to mechanical wear, loosening or breakage. Follow-up is recommended to assess for the possibility of failure. She will follow-up at 1 year from surgery with repeat x-rays of the bilateral knees at that time Demario Morales MD [address], [place], [address], [place] [facility] 08/25/2022 12:18:40 OBGyn Episode No OBEpisode recorded.
--- OUTSIDE RECORDS SUMMARY | 2025-01-29 07:35 | XMS_ITS | Clinical Summary ---
Author Organization [facility] Address [address] [place] [address] Care Team Providers Care Mat Cleaning Machine Operator Name Role Phone Kavya Red MD Primary Care Provider [phone] Allergies Active Allergy Reactions Criticality Noted Date [...] age to complete this topic Care Teams Mat Cleaning Machine Operator Relationship Specialty Start Date End Date Kavya Red MD [address] [place] [address] PCP - General Marketing Development Specialist 08/05/20
--- OUTSIDE RECORDS SUMMARY | 2025-01-29 07:35 | XMS_ITS | Patient Health Record ---
Author Organization [facility] Nancy [facility] [place] Address [address] [place] [place] [address] Care Team Providers Care Teletype Mechanic Name Role Phone Priscilla FELICIANO, Stacy Douglas Primary Care Provider Un available Jose Flower Unavailable [phone] Allergies Allergen (clinical drug ingredient) Drug/Non Drug [...] W/U Status Risk Notes Problem Plantar wart (98032262) Plantar wart (B07.0) Active confirmed Encounters Encounter Location Date Provider Diagnosis [facility] [place] [address] [place] [address] 02/07/2024 Jose Flower [facility] [place] [address] [place] [address] 01/21/2025 Jose Flower Plan Of Treatment Pending Test Test Name Order Date [id number] Destruction, 05-1312/10/2019 [id number] Destruction, 05-1303/01/[id number] Destruction, 05-1307/07/2021 [id number] Plate 04/14/2022 [id number] 06/28/2018 97786- Debride <25 sq cm 02/04/2016 48655 I&D ABSCESS- SIMPLE,SINGLE 017 [id number] I&D ABSCESS- SIMPLE,SINGLE 018 [id number] I&D ABSCESS- SIMPLE,SINGLE 020 07415 I&D ABSCESS- SIMPLE,SINGLE 022 [id number] I&D ABSCESS- SIMPLE,SINGLE 021 [id number] I&D ABSCESS- SIMPLE,SINGLE 024 [id number] I&D ABSCESS- SIMPLE,SINGLE 016 Insurance Providers Payer Name Payer Address Payer Phone Subscriber Number Group Number Insured Name Patient Relationship to Insured Coverage Start Date Coverage End Date [facility] [id number] 0 [address] [place] [phone] [id number] Cooper Finney Self - patient is the [...]
--- OUTSIDE RECORDS SUMMARY | 2025-01-29 07:35 | XMS_ITS | Clinical Summary ---
Author Organization [facility] Address [address] [facility] [address] [place] [address] Phone Care Team Providers Care French Weaver Name Role Phone Chris Desai MD Primary Care Provider Allergies Active Allergy Reactions Criticality Noted Date [...] topic Medical Devices Not on file Insurance Curse PPO Curse PPO CIGNA CARELINK PPO CIGNA CARELINK PPO CIGNA CARELINK PPO CIGNA CARELINK PPO CIGNA CARELINK PPO CIGNA CARELINK PPO CIGNA CARELINK PPO Care Teams French Weaver Relationship Specialty Start Date End Date Chris Desai MD [address] [place] [id number] PCP - General Internal Medicine 09/27/18 Additional Source Comments The information contained in this document represents components of the legal health record. It is not the complete legal health record.[facility]
--- OUTSIDE RECORDS SUMMARY | 2025-01-29 07:36 | XMS_ITS | Encounter Summary ---
Author Organization [facility] Address [address] [facility] [address] [place] [address] Phone Care Team Providers Care Appeals Analyst Name Role Phone Chris Desai MD Primary Care Provider [phone] Encounter Details Date Type Department Care Team (Late st Contact Info) Description 12/24/2018 Procedure Pass [facility] [address] [place] [address] Social History Tobacco Use Types Packs/Day Years [...] on filedocumented in this encounter Care Teams Appeals Analyst Relationship Specialty Start Date End Date Chris Desai MD [address] [place] [address] PCP - General Internal Medicine 09/27/18 documented as of this encounter Additional Source Comments The information contained in this document represents components of the legal health record. It is not the complete legal health record.[facility]
--- NOTE | 2025-01-29 10:54 | PFT_ITS ---
Indication cough Spirometry FEV1 to FVC pre bronchodilators 75% post bronchodilators 81%; FEV1 2.77 L; FVC 3.44 L. No significant response to bronchodilators noted. Lung Volumes Total lung capacity 100% predicted Diffusion Capacity DLCO 92% predicted Comparisons None Interpretation There appears to be reversible obstructive ventilatory defects consistent with asthma. No significant response to bronchodilators noted although did have significant improvement of the small airways. Lung volumes are within normal limits. Diffusing capacity also within normal limits. Clinical correlation warranted. MTDD
[2025-01-29 11:27] VITALS: PULSE 70; O2SAT 97
== END 2025-01-29 07:32 | disposition home or self-care (01) ==
LOC: HO.RESP 07:31
PROVIDERS: PCP Internal Medicine; Visit Provider Internal Medicine
DX: R05.3 Chronic cough (principal)
CPT/HCPCS: 94010; 94640; 94727; 94729

== ENCOUNTER → 2025-01-29 10:54 | Outpatient (BNV) | payer OTHER, SELFPAY | PROVIDERS: PCP Internal Medicine; Visit Provider Hospitalist | DX: R05.3 Chronic cough (principal) | CPT/HCPCS: 94060; 94727; 94729 ==

== ENCOUNTER 2025-02-09 11:47 | Outpatient (REF) | payer OTHER, SELFPAY ==
--- OUTSIDE RECORDS SUMMARY | 2023-12-17 05:30 | XMS_ITS ---
Author Organization [facility] Address [address] [place] [address] Care Team Providers Care Explosive Ordnance Handler Name Role Phone Priscilla FELICIANO, Stacy Douglas Primary Care Provider Un available Jose Flower Unavailable [phone] Encounters Encounter Location Date Provider Diagnosis [address] [address] 12/17/2023 Jose Flower Plan Of Treatment No Information Progress Notes * MIRNAAjayBridgerOB:1960 (64 yo F)Acc No.[id number]:12/17/2023 Progress Note Patient: Cooper ANDRES Provider: Cong Flower DPM :1960 A ge:63 Y S ex:Female Date:12/17/2023 Address:[address] [place] [address] [place], [id number] Pcp:Dayan Roy Subjective: * Chief Complaints: * [...] 0 12/17/2023 Generated for Printi ng/Faxing/eTransmitting on: 11:51 AM EDT
--- OUTSIDE RECORDS SUMMARY | 2024-02-15 05:00 | XMS_ITS ---
Author Organization [facility] Address [address] [place] [address] Care Team Providers Care Graphic Art Sales Representative Name Role Phone Priscilla FELICIANO, Stacy Douglas Primary Care Provider Un available Jose Flower Unavailable [phone] Encounters Encounter Location Date Provider Diagnosis [address] [address] 02/15/2024 Jose Flower Plan Of Treatment No Information Progress Notes * MIRNAAjayBridgerOB:1960 (64 yo F)Acc No.[id number]:02/15/2024 Progress Note Patient: Cooper ANDRES Provider: Cong Flower DPM :1960 A ge:63 Y S ex:Female Date:02/15/2024 Address:[address] [place] [phone] Pcp:Dayan Roy Subjective: * Chief Complaints: * [...] DPM Date: Generated for Printi ng/Faxing/eTransmitting on: 11:51 AM EDT
--- OUTSIDE RECORDS SUMMARY | 2025-02-09 11:51 | XMS_ITS | Encounter Summary ---
Author Organization [facility] Address [address] [place] [address] Phone Care Team Providers Care Wheel Installer Name Role Phone Chris Desai MD Primary Care Provider [phone] Encounter Details Date Type Department Care Team (Late st Contact Info) Description 12/24/2018 Procedure Pass [facility] [address] [place] [address] Social History Tobacco Use Types Packs/Day Years [...] on filedocumented in this encounter Care Teams Wheel Installer Relationship Specialty Start Date End Date Chris Desai MD [address] [place] [address] PCP - General Internal Medicine 09/27/18 documented as of this encounter Additional Source Comments The information contained in this document represents components of the legal health record. It is not the complete legal health record.[facility]
--- OUTSIDE RECORDS SUMMARY | 2025-02-09 11:51 | XMS_ITS | Clinical Summary ---
Author Organization [facility] Address [address] [facility] [address] [place] [address] Phone Care Team Providers Care Vertical Punch Operator Name Role Phone Chris Desai MD Primary Care Provider [phone] Allergies Active Allergy Reactions Criticality Noted Date [...] topic Medical Devices Not on file Insurance [employer] PPO [employer] PPO CIGNA CARELINK PPO CIGNA CARELINK PPO CIGNA CARELINK PPO CIGNA CARELINK PPO CIGNA CARELINK PPO CIGNA CARELINK PPO CIGNA CARELINK PPO Care Teams Vertical Punch Operator Relationship Specialty Start Date End Date Chris Desai MD [address] [place] [phone] PCP - General Internal Medicine 09/27/18 Additional Source Comments The information contained in this document represents components of the legal health record. It is not the complete legal health record.[facility]
--- OUTSIDE RECORDS SUMMARY | 2025-02-09 11:51 | XMS_ITS | Patient Health Record ---
Author Organization [facility] [place] Address [address] [place] [place] [address] Care Team Providers Care Rn Angiography Name Role Phone Priscilla FELICIANO, Stacy Douglas Primary Care Provider Un available Jose Flower Unavailable [phone] Allergies Allergen (clinical drug ingredient) Drug/Non Drug [...] W/U Status Risk Notes Problem Plantar wart ([id number]) Plantar wart (B07.0) Active confirmed Encounters Encounter Location Date Provider Diagnosis [facility] [address] [address] 01/21/2025 Jose Flower Plan Of Treatment Pending Test Test Name Order Date [id number] Destruction, 05-1312/10/2019 [id number] Destruction, 05-1303/01/2021 [id number] Destruction, 05-1307/07/2021 [id number] Plate 04/14/2022 [id number] 06/28/2018 [id number]- Debride <25 sq cm 02/04/2016 02131 I&D ABSCESS- SIMPLE,SINGLE 017 [id number] I&D ABSCESS- SIMPLE,SINGLE 018 90877 I&D ABSCESS- SIMPLE,SINGLE 020 47004 I&D ABSCESS- SIMPLE,SINGLE 022 [id number] I&D ABSCESS- SIMPLE,SINGLE 021 [id number] I&D ABSCESS- SIMPLE,SINGLE 024 [id number] I&D ABSCESS- SIMPLE,SINGLE 016 Insurance Providers Payer Name Payer Address Payer Phone Subscriber Number Group Number Insured Name Patient Relationship to Insured Coverage Start Date Coverage End Date [facility]-[id number] [address] [place] [id number] Cooper Finney Self - patient is the [...]
--- OUTSIDE RECORDS SUMMARY | 2025-02-09 11:51 | XMS_ITS | Clinical Summary ---
Author Organization [facility] Address [address] [place] [address] Care Team Providers Care Ham Curer Name Role Phone Kavya Red MD Primary Care Provider [phone] Allergies Active Allergy Reactions Criticality Noted Date [...] age to complete this topic Care Teams Ham Curer Relationship Specialty Start Date End Date Kavya Red MD [address] [place] [address] PCP - General Soil [place] 08/05/20
--- OUTSIDE RECORDS SUMMARY | 2025-02-09 11:52 | XMS_ITS | Encounter Summary ---
Author Organization [facility] Address [address] [place] [address] Phone Care Team Providers Care Technical Recruiter Name Role Phone Chris Desai MD Primary Care Provider [phone] Encounter Details Date Type Department Care Team (Late st Contact Info) Description 12/24/2018 Procedure Pass [facility] [address] [place] [address] Social History Tobacco Use Types Packs/Day Years [...] on filedocumented in this encounter Care Teams Technical Recruiter Relationship Specialty Start Date End Date Chris Desai MD [address] [place] [address] PCP - General Internal Medicine 09/27/18 documented as of this encounter Additional Source Comments The information contained in this document represents components of the legal health record. It is not the complete legal health record.[facility]
[2025-02-09 13:34] LABS: Anion Gap 12 (12-20); Blood Urea Nitrogen 15 mg/dL (9-16); Calcium 9.2 mg/dL (8.4-10.2); Carbon Dioxide 27 mmol/L (22-29); Chloride 109 mmol/L (96-108); Cholesterol 199 mg/dL (<200); Estimated Glomerular Filt Rate > 60; HDL Cholesterol 70 mg/dL (>40); Potassium 4.2 mmol/L (3.3-5.1); Sodium 144 mmol/L (135-145); Triglycerides 97 mg/dL (<150)
== END 2025-02-09 11:48 | disposition home or self-care (01) ==
LOC: HO.HMGCLDS 11:47
PROVIDERS: Absent Provider Internal Medicine; PCP Internal Medicine; Visit Provider Internal Medicine
DX: Z13.220 Encounter for screening for lipoid disorders (principal); I10 Essential (primary) hypertension; R06.09 Other forms of dyspnea; M85.80 Other specified disorders of bone density and structure, unspecified site; Z79.899 Other long term (current) drug therapy; J45.20 Mild intermittent asthma, uncomplicated
CPT/HCPCS: 36415; 80048; 80061; 82306

== ENCOUNTER 2025-02-09 15:25 | Outpatient (AMB) | payer OTHER, SELFPAY ==
--- NOTE | 2025-02-09 15:49 | A.OFFPC_ITS ---
Vital Signs 02/09/25 15:51 Height 5 ft 4 in Weight 184 lb BMI 31.6 BP 120/82 Blood Pressure Location Lt brachial Position Sitting Respiration 18 Pulse 68 Pulse Source Pulse Oximeter Temp 97.6 F Temp Source Oral Pulse Oximetry (%) 96 Oxygen Delivery Method Room Air Intake Visit Reasons: discuss PFT results Intake Note: Pt is here today to discuss PFT results Allergies fexofenadine (From Romi) Allergy (Unknown, Verified 02/09/25 16:04) dizziness lisinopril Adverse Reaction (Verified 02/09/25 16:04) cough Medication List - Last Reconciled 02/09/25 by Stacy Wells MD acetaminophen 650 mg (2 x 325 mg) PO Q6H PRN 30 days albuterol sulfate 90 mcg/actuation 2 puffs inhalation Q6H PRN amlodipine 5 mg PO DAILY BreatheRite MDI Spacer (inhalational spacing device) As directed NS budesonide-formoterol 160-4.5 mcg/actuation (Symbicort) 2 puffs inhalation Q12H 30 days celecoxib 200 mg PO BID cromolyn 200 mg PO QID famotidine 20 mg PO BEDTIME levocetirizine (Xyzal) 5 mg PO BID meclizine 25 mg PO DAILY PRN montelukast 10 mg PO DAILY multivitamin (Daily Multi-Vitamin tablet) 1 tab PO DAILY naltrexone 3mg olmesartan-hydrochlorothiazide 40-12.5 mg 1 tab PO DAILY zoledronic zfes-yitcgxfo-ofueq 5 mg/100 mL (Reclast) ea IV .once yearly Tobacco use date assessed: 01/12/25 Dental Screening Dental Screen Date: 02/09/25 Did you have a dental visit in the last 12 months?: No Did you have a dental problem in the last 6 months where you did not have access to dental care?: No Was dental information given to patient?: Patient has dentist HPI discuss PFT results HPI Details The patient is a 64-year-old female presenting for follow-up on her results of her pulmonary function testing. She reports a history of asthma diagnosed in childhood, characterized by wheezing, but was not treated with medication until recently. The patient experiences exacerbations triggered by environmental factors such as pollen, perfume, and temperature changes, leading to coughing and wheezing, especially at night. The patient has been using albuterol for symptomatic relief, but reports inadequate control of nighttime symptoms. 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 The patient also reports a history of allergic rhinitis, managed with Levocetirizine, which she takes twice daily to control hives and nasal symptoms. She denies any significant side effects from Levocetirizine, despite its sedative potential. Recent laboratory tests indicate elevated eosinophils, consistent with allergic reactions, and a vitamin D level above the recommended range, prompting a reduction in supplementation frequency. Pulmonary function test showed reversible obstructive ventilatory defects consistent with asthma. No significant response to bronchodilators noted although did have significant improvement of the small airways. Lung volumes are within normal limits. Diffusing capacity also within normal limits. Clinical correlation warranted. [facility] Medical History (Updated 02/09/25 @ 16:10 by Stacy Wells MD) Mild intermittent asthma in adult without complication Chronic urticaria Osteopenia Positional lightheadedness Nystagmus History of closed Colles' fracture Surgical menopause Annual physical exam Mastalgia in female Mammogram normal Hyperlipidemia Allergic rhinitis Pemphigus vulgaris Osteoarthritis HTN (hypertension) Surgical History History of bilateral knee replacement History of right hip hemiarthroplasty (~08/29/23) History of arthroplasty of right knee H/O colonoscopy S/P RAFY (total abdominal hysterectomy) Hx of cholecystectomy H/O left knee surgery H/O right wrist surgery History of bladder surgery Family History Father Lung cancer Mother Bladder cancer Paternal Grandmother Breast cancer Social History Household Members: Family Housing: House Do you presently have visiting nurse or other home services: No Alcohol intake: current Alcohol intake frequency: holidays/special occasions only Patient Tobacco Use Status: Never used Tobacco e-Cigarette/Vaping Use: Never Used Second Hand Smoke Exposure: No service: No Current occupational status: employed Current occupation: [employer] Cognitive needs: No Hearing needs: No Vision needs: Yes Questionnaire Thrive Questionnaire Date Thrive assessed: 05/21/24 I am a: Patient What is your living situation today?: I choose not to answer this question Within the past 12 months, did the food you bought not last and you didn't have the money to get more?: I choose not to answer this question Within the past 12 months, did you worry whether your food would run out before you got money to buy more?: I choose not to answer this question Do you have trouble paying for medicines?: No Do you have trouble getting transportation to medical appointments?: No Do you have trouble paying your heating and electricity bill?: No Do you have trouble taking care of your child, family member or friend?: No Do you have trouble with day-to-day activities such as bathing, preparing meals, shopping, managing finances, etc.?: No Are you currently unemployed and looking for a job?: No Are you interested in more education?: No Please select the resources that you would like help with: None Currently or been in a relationship where the following occur: I choose not to answer THRIVE Score: 0 JEFFERY-7 AMB Questionnaire JEFFERY-7 Date JEFFERY - 7 assessed: 05/26/24 Source: Developed by Drs. Manjinder Schulz, Nadine Howard, Jose Ramon Simon and colleagues, with an educational swapna from [employer]. Review of Systems Const All systems reviewed & are unremarkable except as noted in HPI and below Physical exam (Primary Care) Vital Signs: Last Vital Signs Temp 97.6 F 02/09/25 15:51 Pulse 68 02/09/25 15:51 Resp 18 02/09/25 15:51 BP 120/82 02/09/25 15:51 Pulse Ox 96 02/09/25 15:51 Oxygen Delivery Method Room Air 02/09/25 15:51 BMI result Body Mass Index 31.6 Tobacco/Smoking Status: Tobacco use Status Tobacco use date assessed 01/12/25 02/09/25 15:59 Patient Tobacco Use Status Never used Tobacco 02/09/25 15:59 e-Cigarette/Vaping Use Never Used 02/09/25 15:59 Thrive Assessment: Date of Thrive Assessment Date Thrive assessed 05/21/24 02/09/25 15:59 Currently or been in a relationship where the following occur: I choose not to answer Const General: no acute distress HENMT Face and sinus: Yes normal facial exam Mouth: Normal oral and palatal mucosa present Throat: Yes posterior oropharynx normal Neck Neck: Yes no lymphadenopathy and Yes supple Resp Effort & Inspection: normal respiratory effort Auscultation: diminished lung sounds Cardio Rhythm: regular rhythm Heart sounds: S1 normal heart sound present and S2 normal heart sound present GI Inspection: Yes normal to inspection Palpation (GI): Soft to palpation Coding Level of Care Code Est Pt Level 4 (97393) Diagnoses Mild intermittent asthma in adult without complication J45.20 Assessment & Plan Assessment & Plan (1) Mild intermittent asthma in adult without complication: Code(s): J45.20 - Mild intermittent asthma, uncomplicated Category: Medical Plan: Results of pulmonary function test discussed with patient. Will start her on budesonide-formoterol 160-4.5 mcg/actuation, 2 start initially with 1 inhalation twice a day and may increase 2 inhalations every 12 hours, with a at least a minute in between inhalation, instructed on proper technique of using inhaler, prescription also sent for a spacer to use with the her nail, refill prescription sent also for her albuterol inhaler use as needed for episodes of bronchospasm and wheezing. Advised to get yearly flu vaccine and recommended as well to get RSV vaccination and pneumococcal vaccine Medications: New budesonide-formoterol 160-4.5 mcg/actuation (Symbicort) 2 puffs inhalation Q12H 10.2 grams 2RF 30 days J45.20 - Mild intermittent asthma, uncomplicated BreatheRite MDI Spacer (inhalational spacing device) As directed 1 ea 0RF NS J45.20 - Mild intermittent asthma, uncomplicated Refilled albuterol sulfate 90 mcg/actuation 2 puffs inhalation Q6H PRN 8.5 grams 0RF shortness of breath or wheezing or cough
[2025-02-09 15:51] VITALS: BP 120/82; PULSE 68; RESP 18; TEMP 36.4; O2SAT 96; BMI 31.6
== END 2025-02-09 16:25 | disposition home or self-care (01) ==
PROVIDERS: PCP Internal Medicine; Visit Provider Internal Medicine
DX: J45.20 Mild intermittent asthma, uncomplicated (principal)

== ENCOUNTER → 2025-02-16 07:39 | Outpatient (REF) | payer OTHER, SELFPAY ==
--- NOTE | 2025-02-16 07:40 | CA_ITS ---
Transthoracic Echocardiogram Patient (Last, First, Middle): Cooper Finney M Gender: F Date of : 1960 Age: 64 Procedure Date: 02/16/2025 Procedure Type: Transthoracic Echocardiogram Location: OP Height: 162.56 cm Weight: 83.46 kg BSA: 1.89 m2 Heart Rate: 66 bpm BP: 120 / 80 mmHg Supervisor Money Room: SB Referring MD: Kavya Red MD Mannequin Molder: Luis Manuel Cain MD Symptoms: I10 - Essential (primary) hypertension Study Quality: Adequate ECG Rhythm: Sinus Conclusions: - 1. Normal LV ejection fraction of 65-70% with normal filling pattern 2. Mild aortic regurgitation 3. Normal RV systolic pressure 4. No gross pericardial effusion Findings Left Ventricle Normal left ventricular size, thickness, and systolic function. The visually estimated ejection fraction is between 65-70%. Spectral Doppler is indicative of a normal filling pattern. Right Ventricle Normal right ventricular cavity size and systolic function. Atria Both atria are normal in size. There is no evidence of interatrial shunt. Aortic Valve Normal aortic valve structure and function. There is no aortic valve stenosis. The peak aortic velocity is 1.49 m/s with a calculated peak gradient of 9 mmHg. There is mild aortic valve regurgitation. Mitral Valve Normal mitral valve structure and function. There is trace mitral valve regurgitation. There is no mitral valve stenosis. Pulmonic Valve The pulmonic valve is likely normal. Tricuspid Valve Normal tricuspid valve structure. There is trace tricuspid valve regurgitation. The right ventricular systolic pressure is normal. The right ventricular systolic pressure is 25 mmHg. Normal right atrial pressure. There is no evidence of pulmonary hypertension. Great Vessels All visible segments of the aorta are normal in size. The pulmonary artery was not well visualized. There is no dilatation of the ascending aorta measuring 3.00 cm. Small plaque is seen in the sino tubular ridge. Venous The inferior vena cava is normal in size and collapses greater than 50% with inspiration. Pericardium/Pleural There is no evidence of pericardial effusion. Prior Study Comparison No prior study available for comparison. Measurements 2D Linear Measurements IVSd: 0.71 0.6-0.9/0.6-1.0 cm LVIDd: 5.02 3.9-5.3/4.2-5.9 cm LVIDd Index: 2.66 2.4-3.2/2.2-3.1 cm/m2 LVIDs: 3.55 2.0-3.6 cm LVPWd: 0.74 0.7-1.1 cm LA Diam: 3.50 2.7-3.8/3.0-4.0 cm LAIDs Index: 1.85 1.5-2.3 cm/m2 LV Mass: 149.85 67-162/88-224 g LV Mass Index: 79.28 43-95/49-115 g/m2 LVOT Diam: 1.90 3.0+(-)1.3 cm 2D Systolic Function EF 4C: 63.60 >55% EF 2C: 74.20 >55% EF BiP: 69.00 >55% Mitral Valve MV Pk E: 1.02 MV PK A: 0.81 MV Decel Time: 149.00 E/A: 1.30 E'Lateral: 7.72 E'Medial: 6.64 E/E' Med: 15.40 E/E' Lat: 13.20 PHT: 43.00 MVA PHT: 5.12 Decel Lowndes: 6.84 Aortic Valve AoV Pk Brenden: 1.49 AoV Pk Grad: 9.00 RANJAN: 2.70 AI Pk Brenden: 4.51 AI Lowndes: 2.71 LVOT LVOT Pk Brenden: 1.40 LVOT Mn Brenden: 0.87 LVOT VTI: 0.27 LVOT Pk Grad: 8.00 LVOT Mn Grad: 4.00 LVOT Diam: 1.90 LVOT Area: 2.84 Diastolic Function MV Pk E: 1.02 MV Pk A: 0.81 E/A: 1.30 E'Medial: 6.64 E/E' Med: 15.40 E' Laterial: 7.72 E/E' Lat: 13.20 Right Ventricle TAPSE (mm): 24.40 TVS' Brenden: 12.70 Tricuspid Valve TR Pk Brenden: 2.37 TR Pk Grad: 22.00 RA Press: 3.00 RVSP: 25.00 Great Vessels Aorta Sinus of Valsalva: 3.10 2.0-3.5 cm Ao Asc: 3.00 2.1-3.4 cm Ao Arch: 2.60 Ao Desc: 1.20 Pulmonary Veins Pulm Vein S/D 1.90 Pulmonary Valve PV Pk Brenden: 0.92 Peak PV Grad: 3.00 Updated in Other Vendor System with Status of Final Luis Manuel Cain MD electronically signed on 02/16/2025 2:57:03 PM with status of Final
--- OUTSIDE RECORDS SUMMARY | 2025-02-16 07:42 | XMS_ITS | Clinical Summary ---
Author Organization [facility] Address [address] [place] [address] Care Team Providers Care Bench Worker Binding Name Role Phone Kavya Red MD Primary Care Provider [phone] Allergies Active Allergy Reactions Criticality Noted Date [...] age to complete this topic Care Teams Bench Worker Binding Relationship Specialty Start Date End Date Kavya Red MD [address] [place] [address] PCP - General Documentation Clerk 08/05/20
--- OUTSIDE RECORDS SUMMARY | 2025-02-16 07:42 | XMS_ITS | Data Portability ---
Author Organization [place] [facility] [place] Address [address] [place] [address] Care Team Providers Care Cargo Service Supervisor Name Role Phone LOURDESCARMENZA Primary Care Provider Assessment No assessment recorded. Plan of Treatment Reminders Order Date Submit Date Provider Last Modified By Organization Details Last Modified Time Details Appointments None record ed. Lab None record ed. Referral None record ed. Procedures None record ed. Surgeries None record ed. Imaging XR, knee, 3 view 023 08/26/19 23 [email or web address] 7 [facility], [address] , [address], [place], [address], 3 14:30:47 Medication Orders None record ed. Patient TargetsNo targets recorded. Patient InstructionsNo instructions recorded. Reason for Referral None Reported. Problems Name Problem SNOMED Code Status Onset Date Resolution Date Notes Provider Name and Address Organization Details Recorded Time Problem 96400898 Active No known active problems Not Available [facility] 5 00:12:20 Problem Notes None recorded. Procedures Surgical History Date Name Laterality Status Provider Name and Address Organization Details Recorded Time Hand Surgery completed Richard Kaminski - [facility] 08/25/2022 11:55:40 Knee Surgery completed Richard Kaminski - [facility] 08/25/2022 11:55:54 Imaging Results None recorded. Procedure Notes None recorded. Medical Equipment None Reported. Allergies Allergen ID Allergen Name Allergen Category Reaction Reaction Severity Criticality Documentation Date Start Date Code Code System Note Provider Name and Address Organization Details Recorded Time 976113 fexofenad ine medicatio n Not available Not available Not available 01/20/20252018 98760 RxNorm dizzi ness Not Available [facility] 5 01:31:50 3179 cow milk allergeni c extract food,medi cation Not available Not available Not available 08/25/2022 79692 5 RxNorm Richard Dutton null, [place] [facility] 3 11:55:05 3180 Romi medicatio n Not available Not available Not available 08/25/2022 08813 6 RxNorm Richard Dutton null, [place] [facility] 3 11:55:10 Medications Name Sig Start [...] alcohol? Less than 1 time per week [email or web address] Information not available 08/25/2022 Do you use any illicit or recreational drugs? No [email or web address] Information not available 08/25/2022 Do you or have you ever used any other forms of tobacco or nicotine? No [email or web address] Information not available 08/25/2022 What is your level of alcohol consumption? Occasional [email or web address] Information not available 08/25/2022 Mental Status None recorded. Family History Relationship Description Onset Age of this Age Resolved Age Notes LastModified by Organization Details LastModified Time Father Arthritis [email or web address] Not avai lable 08/25/2022 11:58:01 Father Family history of malignant neoplasm [email or web address] Not available 11:58:13 Father Rheumatoid arthritis [email or web address] Not available 11:58:34 Mother Arthritis [email or web address] Not avai lable 08/25/2022 11:58:01 Mother Family history of malignant neoplasm [email or web address] Not available 11:58:13 Mother Osteoarthrit is [email or web address] Not available 11:58:24 Medical History Condition Response Autoimmune disease Y Osteopenia Y Hypertension Y Gynecological HistoryNo gynecological history recorded. Obstetrics History GPAL:G 0 P 0 0 0 0 Past Encounters Encounter ID Performer Location Encounter Start Date Encounter Closed Date Diagnosis/Indication Diagnosis SNOMED-CT Code Diagnosis ICD10 Code Diagnosis IMO Codes Diagnosis Note [id number] Demario Morales MD [address] [place] [address] 08/25/2022 11:22:17 08/25/2022 12:21:17 History of right total knee replacement 9666894588 993404 Z96.651 Aftercare 141198028 Z47. 1 Health Concerns Section Related Observation [...] pain relief in the knee and satisfactory sabianist of function in terms of activities of [...] total knee arthroplasty. Continue knee conditioning exercises. Amuh-djj-mbpgvsz medications as needed. Ultimate failure may occur due to mechanical wear, loosening or breakage. Follow-up is recommended to assess for the possibility of failure. She will follow-up at 1 year from surgery with repeat x-rays of the bilateral knees at that time Demario Morales MD [address], [place], [address], [place] [facility] 08/25/2022 12:18:40 OBGyn Episode No OBEpisode recorded.
== END ==
LOC: HO.CARD 07:39
PROVIDERS: PCP Internal Medicine; Visit Provider Internal Medicine
DX: I10 Essential (primary) hypertension (principal); R06.09 Other forms of dyspnea
CPT/HCPCS: 93306

== ENCOUNTER → 2025-02-16 07:40 | Outpatient (BNV) | payer OTHER, SELFPAY | PROVIDERS: PCP Internal Medicine; Visit Provider Internal Medicine Cardiovascular Disease | DX: I35.1 Nonrheumatic aortic (valve) insufficiency (principal) | CPT/HCPCS: 93306 ==